=== PATIENT | female | born 1950 | race Caucasian/White ===

== ENCOUNTER 2016-09-14 07:57 | Inpatient (IN) | payer OTHER ==
[2016-09-14] MEDS ORDERED: ONDANSETRON 4 MG/2 ML VIAL IVPB ONE ×2 (08:40→08:44)
[2016-09-14] MEDS ORDERED: SODIUM CHLORIDE 1,000 ML IV STA (08:40)
--- NOTE | 2016-09-14 08:42 | PDOC ---
Attending Attestation - Resident Resident Name: Venkat Mccollum - ED Attending Attestation I have performed the following: I have examined & evaluated the patient, The case was reviewed & discussed with the resident, I agree w/resident's findings & plan, Exceptions are as noted - HPI HPI: 09/14/16 09:13 66y F no pmhx presents with complaint of abd pain x 3 days, initially crampy in nature, then radiating to RLQ and constant. No assoc fever/chills, no n/v until pt arrived to the ED where she vomited x 1. On exam pt has moderate tenderness to the RLQ, mild rebound tenderness. vitals noted for mild tachycardia suspect possible appendicitis will obtain blood work, ct, ua morphine for pain IVF for hydration 09/14/16 12:[address] noted for perforation and suspected diverticulitis pt written for flagyl and levaquin NPO for 2 days will give fluids/iv hydration surgery consulted anticipate admission pt currently hemodynamically stable I spent ~40 minutes of Critical Care time, excluding separately billable procedures, involving high complexity decision making to assess, manipulate and support vital system function(s) to treat single or multiple vital organ system failure and/or to prevent further life threatening deterioration of the patient' s condition. - Physicial Exam PE: 09/14/16 17:38 see above - Medical Decision Making 09/14/16 17:38 see above Heart Score/ECG Review - ECG Impressions Comment:: 09/14/16 10:21 Twelve-lead EKG was performed and reviewed by me. There is normal sinus rhythm with a rate of 106 The axis is normal. The intervals are normal. Nonspecific ST wave changes
[2016-09-14] MEDS ORDERED: ONDANSETRON 4 MG/2 ML VIAL ONE ×2 (08:47→14:29)
[2016-09-14] MEDS ORDERED: morphine CARPU-JECT 4 MG/1 ML DISP.SYRIN IVPUSH ONE (08:49)
[2016-09-14] MEDS ORDERED: morphine CARPU-JECT 4 MG/1 ML DISP.SYRIN ONE (09:07)
[2016-09-14 09:09] LABS: BASOPHIL 0.5 % (0-2.0); MCH 30.1 pg (25.7-33.7); MCHC 32.9 g/dl (32.0-36.0); MEAN CELL VOLUME 91.6 fl (80-96); MEAN PLT VOLUME 9.1 fl (7.5-11.1); PLATELET COUNT 362 K/MM3 (134-434); RDW 13.1 % (11.6-15.6)
--- NOTE | 2016-09-14 09:23 | PDOC ---
History of Present Illness - General Chief Complaint: Pain Stated Complaint: ABD PAIN Time Seen by Provider: 09/14/16 08:07 - History of Present Illness Initial Comments: 09/14/16 09:23 66 yo F with h/o HTN, and diverticulosis who presents with abdominal pain. Pt. reports that over the past 3 days she has been experiencing intermittent, crampy , diffuse abdominal pain with no radiation to back. Over the past 24 hours abdominal pain has migrated to RLQ and been chronic/unremitting, 10/10 severity. Pain is aggravated with movement and pressure. Attempted OTC analgesia w/ Aleve tablet. Denies postprandial pain. She denies N/V, but has had one episode of emesis in room on encounter. She denies fevers/chills, diarrhea, or constipation. No blood in stool. Has had decreased appetite and 1- 2 small BM per day since onset of symptoms. Complains of dysuria , but denies hematuria or flank pain. Denies chest pain, SOB, lightheadedness, syncope, vision disturbance. 09/14/16 13:02 Past History - Past Medical History Allergies/Adverse Reactions: Allergies Allergy/AdvReac Type Severity Reaction Status Date / Time No Known Allergies Allergy Verified 09/14/16 08:12 Home Medications: Ambulatory Orders Acetaminophen [Tylenol] 650 mg PO PRN PRN 09/14/16 Albuterol Sulfate Inhaler - [Ventolin Hfa Inhaler -] 1 - 2 inh PO Q4H PRN Aspirin [ASA -] 81 mg PO DAILY 09/14/16 Cholecalciferol (Vitamin D3) [Vitamin D3] 1,000 unit PO BID 09/14/16 Diltiazem Cd [Cardizem Cd -] 240 mg PO DAILY 09/14/16 Folic Acid 1 mg PO DAILY 09/14/16 Losartan Potassium 50 mg PO DAILY 09/14/16 Meclizine HCl 25 mg PO DAILY 09/14/16 Montelukast Sodium [Singulair] 10 mg PO DAILY 09/14/16 Pravastatin Sodium [Pravachol (Nf)] 20 mg PO HS 09/14/16 Cardiac Disorders: Yes HTN: Yes Hypercholesterolemia: Yes - Psycho/Social/Smoking Cessation Hx Suicidal Ideation: No Smoking History: Never smoked Information on smoking cessation initiated: No Review of Systems - Review of Systems Comments:: 09/14/16 09:35 GENERAL/CONSTITUTIONAL: No fever or chills. No weakness. HEAD, EYES, EARS, NOSE AND THROAT: No change in vision. No ear pain or discharge. No sore throat. CARDIOVASCULAR: No chest pain or shortness of breath RESPIRATORY: No cough, wheezing, or hemoptysis. GASTROINTESTINAL: + nausea and vomiting, and constipation. No diarrhea or constipation. GENITOURINARY: + dysuria. No frequency, or change in urination. MUSCULOSKELETAL: No joint or muscle swelling or pain. No neck or back pain. SKIN: No rash NEUROLOGIC: No headache, vertigo, loss of consciousness, or change in strength/ sensation. ENDOCRINE: No increased thirst. No abnormal weight change HEMATOLOGIC/LYMPHATIC: No anemia, easy bleeding, or history of blood clots. ALLERGIC/IMMUNOLOGIC: No hives or skin allergy. *Physical Exam - Vital Signs Last Vital Signs Temp Pulse Resp BP Pulse Ox 86 18 124/80 97 09/14/16 08:04 09/14/16 08:04 09/14/16 08:04 09/14/16 08:04 - Physical Exam Comments: 09/14/16 09:36 GENERAL: Awake, alert, and fully oriented, in no acute distress HEAD: No signs of trauma, normocephalic, atraumatic EYES: PERRLA, EOMI, sclera anicteric, conjunctiva clear ENT: Auricles normal inspection, hearing grossly normal, nares patent, oropharynx clear without exudates. Moist mucosa NECK: Normal ROM, supple, no lymphadenopathy, JVD, or masses LUNGS: No distress, speaks full sentences, clear to auscultation bilaterally HEART: Regular rate and rhythm, normal S1 and S2, no murmurs, rubs or gallops, peripheral pulses normal and equal bilaterally. ABDOMEN: TTP in RLQ. Mild TTP in RUQ. Hypoactive BS. Absent rigidity. Involuntary guarding of abdomen .No rebound tenderness. Absent HSP. + mcburney point tenderness. Neg Moncada sign. + Rovsing sign. Absent CVA tenderness. Absent pulsatile abomen. No masses EXTREMITIES: Normal inspection, Normal range of motion, no edema. No clubbing or cyanosis. SKIN: Warm, Dry, normal turgor, no rashes or lesions noted. 09/14/16 13:00 ED Treatment Course - LABORATORY CBC & Chemistry Diagram: 09/14/16 09:00 09/14/16 09:47 - ADDITIONAL ORDERS Additional order review: 09/14/16 09:00 RBC 4.44 MCV 91.6 MCHC 32.9 RDW 13.1 MPV 9.1 Neutrophils % 86.0 H Lymphocytes % 6.9 L Monocytes % 6.6 Eosinophils % 0.0 Basophils % 0.5 - RADIOLOGY Radiology Studies Ordered: Category Date Time Status ABDOMEN & PELVIS CT WITH CONTR [CT] Stat CT Scan 09/14/16 08:38 Ordered Radiograph Interpretation: 09/14/16 12:59 EXAM#: TYPE/EXAM: RESULT: [id number] CT/ABDOMEN PELVIS CT WITH CONTR Abdomen and pelvis CT (with intravenous and oral contrast) Clinical information: abdominal pain multiplanar imaging was performed following the intravenous administration of nonionic contrast. Oral contrast was not administered. A small pneumoperitoneum is seen. There is also identification of a small amount of free fluid within the pelvis bilaterally and within the perihepatic region laterally. There is prominent concentric wall thickening involving the middle third of the sigmoid colon in association with numerous diverticula. Pericolonic edema and fluid is also seen. No abscess is identified. Within this same region of the sigmoid colon is prominent fecal retention with resultant luminal dilatation. No bowel obstruction is noted. Multiple bilateral renal cortical cysts. The liver, spleen, pancreas, gallbladder and adrenal glands demonstrate no discrete abnormality. There is no aortic aneurysm. No gross small bowel pathology is seen. The appendix appears unremarkable. There is no obvious lymphadenopathy. Equivocal mild endometrial thickening is noted. Mild bilateral lower lung field discoid atelectasis. IMPRESSION: Pneumoperitoneum. Small amount of free fluid within the abdomen and pelvis. Extensive sigmoid diverticulosis is seen with associated wall thickening as well as pericolonic edema. There is also distention of the sigmoid colon lumen in the same region secondary to fecal retention. These findings may be on the basis of acute diverticulitis and/or erosion/perforation associated with fecal retention. No abscess is identified. There is possible mild endometrial thickening. When the patient's clinical condition permits correlate with sonography. Reported By: Issac Maloney MD 09/14/16 9259 - Medications Given in the ED: ED Medications Discontinued Medications Generic Name Dose Route Start Last Admin Trade Name Freq PRN Reason Stop Dose Admin Morphine Sulfate 4 mg 09/14/16 08:49 09/14/16 09:11 Morphine Injection - IVPUSH 09/14/16 08:50 4 mg ONCE ONE Administration Ondansetron HCl 8 mg 09/14/16 08:40 09/14/16 09:12 Zofran Injection IVPB 09/14/16 08:41 Not Given ONCE ONE Ondansetron HCl 4 mg 09/14/16 08:44 09/14/16 09:06 Zofran Injection IVPB 09/14/16 08:45 4 mg ONCE ONE Administration Medical Decision Making - Medical Decision Making 09/14/16 09:39 66 yo F with h/o HTN, and diverticulosis who presents with abdominal pain. RLQ severe, migrating, crampy abdominal pain of 24 hours duration following 2 days of diffuse crampy abdominal pain. Moderate to high suspicion of acute appendicitis guided by physical exam and history. Pt. endorses RLQ pain and TTP. Low suspicion for SBO, pt with mutliple BM and does not report N/V. Consider possible diverticulitis vs. UTI/pyelonephritis in setting of abdominal pain and dysuria. DDx. Appendicitis, Nephrolithiasis, constipation ED course: CBC, CMP, lipase UA CT ABDOMEN/PELVIS Morphine 4 mg Ondansetron 4 mg NS 1000 ml 09/14/16 09:47 Lipase-68 CBC- WBC: 19.0 09/14/16 11:11 CMP unremarkable 09/14/16 12:56 CT ABD/PELVISPneumoperitoneum. Small amount of free fluid within the abdomen and pelvis. Extensive sigmoid diverticulosis is seen with associated wall thickening as well as pericolonic edema. There is also distention of the sigmoid colon lumen in the same region secondary to fecal retention. These findings may be on the basis of acute diverticulitis and/or erosion/perforation associated with fecal retention Flagyl 500 mg IV Levaquin 750 mg IV Consulted General Surgery. Per telephone conversation prepare for OR Admit to hospitalist group. *DC/Admit/Observation/Transfer Diagnosis at time of Disposition: Perforation bowel Constipation Qualifiers: Constipation type: unspecified constipation type Qualified Code(s): K59.00 - Constipation, unspecified Diverticulitis Qualifiers: Diverticulitis site: unspecified part of intestinal tract Diverticulitis bleeding: without bleeding Diverticulitis complication: unspecified complication status Qualified Code(s): K57.92 - Diverticulitis of intestine, part unspecified, without perforation or abscess without bleeding - Discharge Dispostion Condition at time of disposition: Guarded Admit: Yes - Attestations Physician Attestion: 09/14/16 13:41 I, Dr. Venkat Mccollum, attest that this document has been prepared under my direction and personally reviewed by me in its entirety. I further attest, that it accurately reflects all work, treatment, procedures and medical decision -making performed by me.
[2016-09-14 10:29] LABS: ALBUMIN 3.2 g/dl (3.4-5.0); ANION GAP 10 (8-16); BILIRUBIN,TOTAL 0.9 mg/dL (0.2-1.0); CALCIUM 8.6 mg/dL (8.5-10.1); CO2 23 mmol/L (21-32); CREATININE 0.8 mg/dL (0.55-1.02); GLUCOSE,RANDOM 121 mg/dL (74-106); SGOT/AST 11 U/L (15-37); SGPT/ALT 18 U/L (12-78); TOT PROT 6.8 g/dl (6.4-8.2)
[2016-09-14 10:30] LABS: ALK PHOS 114 U/L (45-117)
[2016-09-14 11:25] LABS: URINE APPEARANCE CLEAR; URINE BILIRUBIN NEGATIVE (NEGATIVE); URINE BLOOD 1+ (NEGATIVE); URINE COLOR AMBER; URINE GLUCOSE (UA) NEGATIVE (NEGATIVE); URINE KETONE 1+ (NEGATIVE); URINE LEUK ESTERASE NEGATIVE (NEGATIVE); URINE NITRITE NEGATIVE (NEGATIVE); URINE UROBILINOGEN 4.0 E.U/dl mg/dL (0.2-1.0)
[2016-09-14 11:26] LABS: URINE PROTEIN 2+ (NEGATIVE)
[2016-09-14 11:27] LABS: URINE MUCUS MANY; URINE RBC 6 /hpf (0-3); URINE WBC 4 /hpf (3-5)
[2016-09-14] MEDS ORDERED: METRONIDAZOLE 500 MG PREMIXED 100 ML IVPB ONE ×2 (12:20→12:26)
[2016-09-14] MEDS ORDERED: LEVOFLOXACIN 750 MG IVPB 150 ML IVPB ONE ×2 (12:22→12:26)
[2016-09-14] MEDS ORDERED: HYDROmorphone HCL CARPU-JECT 2 MG/1 ML DISP.SYRIN IVPUSH ONE (12:28)
[2016-09-14] MEDS ORDERED: HYDROmorphone HCL CARPU-JECT 1 MG/1 ML DISP.SYRIN ONE (12:29)
--- NOTE | 2016-09-14 12:49 | PN ---
Progress Note (short form) - Note Progress Note: surgery pt seen and examined. full consult dictated. 66f with 3 days of constipation and abd pain, found to have leukocytosis and ct showing inflamed sigmoid colon and multiple droplets of free air. on exam pt is obese with significant lower abd tenderness and mild upper abd tenderness. Pt offered exploratory surgery with colostomy and agrees. I am making arrangements for emergent surgery. Will proceed as soon as OR team available.
[2016-09-14] MEDS ORDERED: PIPERACILLIN/TAZOB 3.375 GM/50 ML PRE-DOCKED IVPB STA (12:52)
[2016-09-14] MEDS ORDERED: ROCURONIUM BROMIDE 50 MG/5 ML VIAL ONE (14:03)
[2016-09-14] MEDS ORDERED: MIDAZOLAM HCL 2 MG/2 ML SINGLE DOSE VIAL ONE (14:03)
[2016-09-14] MEDS ORDERED: PROPOFOL 20 ML ONE (14:03)
[2016-09-14] MEDS ORDERED: SUCCINYLCHOLINE CHLORIDE 200 MG/10 ML VIAL ONE (14:03)
--- NOTE | 2016-09-14 14:03 | HP ---
Admitting History and Physical - Primary Care Physician PCP: Josie Cosme - Admission Chief Complaint: abdominal pain History of Present Illness: 66F with PMH HTN and vertigo woke up whtis morning with abdominal pain. States she is constipated at baseline and has a history of diverticulosis. She describes the pain as crampy comes and goes and radiates all over the abdomen although the pain intially started on the right side of the abdomen. Denies nausea vomiting fevers chills chest pain or shortness of breath. No change i exercise tolerance. Denies diarrhea or urinary symptoms. States she never had a colonoscopy History Source: Patient, Medical Record Limitations to Obtaining History: Clinical Condition - Past Medical History Additional Past Medical History: HTN HLD vertigo asthma obesity - Past Surgical History Additional Past Surgical History: C section - Smoking History Smoking history: Never smoked Home Medications - Allergies Allergies/Adverse Reactions: Allergies Allergy/AdvReac Type Severity Reaction Status Date / Time No Known Allergies Allergy Verified 09/14/16 08:12 - Home Medications Home Medications: Ambulatory Orders Acetaminophen [Tylenol] 650 mg PO PRN PRN 09/14/16 Albuterol Sulfate Inhaler - [Ventolin Hfa Inhaler -] 1 - 2 inh PO Q4H PRN Aspirin [ASA -] 81 mg PO DAILY 09/14/16 Cholecalciferol (Vitamin D3) [Vitamin D3] 1,000 unit PO BID 09/14/16 Diltiazem Cd [Cardizem Cd -] 240 mg PO DAILY 09/14/16 Folic Acid 1 mg PO DAILY 09/14/16 Losartan Potassium 50 mg PO DAILY 09/14/16 Meclizine HCl 25 mg PO DAILY 09/14/16 Montelukast Sodium [Singulair] 10 mg PO DAILY 09/14/16 Pravastatin Sodium [Pravachol (Nf)] 20 mg PO HS 09/14/16 Family Disease History - Family Disease History Other Family History: states "heart problems" run in her family Review of Systems - Review of Systems Constitutional: reports: Malaise, Weakness Eyes: reports: No Symptoms HENT: reports: No Symptoms Neck: reports: No Symptoms Cardiovascular: reports: No Symptoms Respiratory: reports: No Symptoms Gastrointestinal: reports: Abdominal Pain, Bloating, Constipation Genitourinary: reports: No Symptoms Breasts: reports: No Symptoms Reported Musculoskeletal: reports: No Symptoms Integumentary: reports: No Symptoms Neurological: reports: No Symptoms Hematology/Lymphatic: reports: No Symptoms Physical Examination Vital Signs: Vital Signs Temperature Pulse Rate 111 H 09/14/16 13:30 Respiratory Rate 20 09/14/16 12:58 Blood Pressure 135/79 09/14/16 12:58 O2 Sat by Pulse Oximetry (%) 95 09/14/16 13:30 Constitutional: Yes: No Distress, Calm, Obese Eyes: Yes: Conjunctiva Clear HENT: Yes: Atraumatic, Normocephalic, Other (dry mucous membranes) Neck: Yes: Supple, Trachea Midline Cardiovascular: Yes: Regular Rate and Rhythm, S1, S2 Respiratory: Yes: Other (Crackles R>L bibasilar) Gastrointestinal: Yes: Abdomen, Obese, Hypoactive Bowel Sounds, Tenderness ( diffuse severe tenderness), Other (there is rigidity and guarding) Extremities: Yes: WNL Edema: No Integumentary: Yes: WNL Neurological: Yes: WNL, Alert, Oriented ...Motor Strength: WNL Labs: CBC, BMP 09/14/16 09:00 09/14/16 09:47 Imaging - Results Chest X-ray: Report Reviewed, Image Reviewed Cat Scan: Report Reviewed, Image Reviewed Assessment/Plan 66F with [id number] medical problems presents with abdominal pain found to have pneumoperitoneum going to the OR for emergent Ex-lap with viviana's procedure Problem list: Sepsis pneumoperitoneum perforated viscus perforated diverticulitis vs perforated cancer vs stercoral ulcer chronic Constipation HTN HLD Asthma Vertigo Anemia Obesity likely obesity hypoventilation syndrome Plan: to go to OR STAT type and screen 2 units PRBCs on hold for OR Admit to ICU I/O Castellanos ABx Cardiac monitoring NPO except meds restart BP meds restart statin hold aspirn DVT/GI PPx PT consult f/ pathology outpatient sleep study nebs Visit type - Emergency Visit Emergency Visit: Yes ED Registration Date: 09/14/16 Care time: The patient presented to the Emergency Department on the above date and was hospitalized for further evaluation of their emergent condition. - New Patient This patient is new to me today: Yes Date on this admission: 09/14/16 - Critical Care Critical Care patient: Yes Total Critical Care Time (in minutes): 45 Critical Care Statement: The care of this patient involved high complexity decision making to prevent further life threatening deterioration of the patient 's condition and/or to evalute & treat vital organ system(s) failure or risk of failure.
[2016-09-14] MEDS ORDERED: ONDANSETRON 4 MG/2 ML VIAL IVPB PRN (14:07)
[2016-09-14] MEDS ORDERED: ACETAMINOPHEN 325 MG TABLET (FP) PO PRN (14:07)
[2016-09-14] MEDS ORDERED: IBUPROFEN 800 MG/8 ML IJ IVPB PRN (14:12)
--- NOTE | 2016-09-14 14:14 | OP ---
Operative Note - Note: Operative Date: 09/14/16 Pre-Operative Diagnosis: perforated viscous Operation: laparotomy, sigmoid colectomy, colostomy Findings: perforated sigmoid colon, suspect diverticulitis Post-Operative Diagnosis: Same as Pre-op Surgeon: Pablo Galarza Anesthesiologist/BRASS RECLAIMER: Joe Earl Estimated Blood Loss (mls): 200 Drains & Tubes with Location: maxi pelvis
[2016-09-14] MEDS ORDERED: SODIUM CHLORIDE 1,000 ML IV SCH (14:15)
--- NOTE | 2016-09-14 14:23 | HP ---
<Jil Carballo - Last Filed: 09/14/16 23:22> CHIEF COMPLAINT: Worsening abdominal pain HISTORY OF PRESENT ILLNESS: Patient is a 66yo F with a history of diverticulosis and chronic constipation presented tot he ER with worsening abdominal pain. As per the ED note, for the past 3 days she has been experiencing intermittent, crampy, diffuse nonradiating abdominal pain. The patient states that today she woke up with 10/ 10 chronic and unremitting abdominal pain which is now localized more in the RLQ. The pain is worsened with movement. She denies fevers, chills, CP, SOB. She denies current diarrhea, nausea, or vomitting, diarrhea but had one episode of emesis in the ER room. ER course was notable for: (1) CXR, CT Scan (2) EKG (3) Surgery Consult Recent Travel: Denies PAST MEDICAL HISTORY: HTN, HLD, Asthma, Vertigo PAST SURGICAL HISTORY: Prior Transverse C section with vertical incision, prior R eye surgery Social History: Smoking: Denies Alcohol: Denies Drugs: Denies Family History: Allergies No Known Allergies Allergy (Verified 09/14/16 08:12) HOME MEDICATIONS: Home Medications Medication Instructions Recorded Acetaminophen [Tylenol] 650 mg PO PRN PRN 09/14/16 Albuterol Sulfate Inhaler - 1 - 2 inh PO Q4H PRN 09/14/16 [Ventolin Hfa Inhaler -] Aspirin [ASA -] 81 mg PO DAILY 09/14/16 Cholecalciferol (Vitamin D3) 1,000 unit PO BID 09/14/16 [Vitamin D3] Diltiazem Cd [Cardizem Cd -] 240 mg PO DAILY 09/14/16 Folic Acid 1 mg PO DAILY 09/14/16 Losartan Potassium 50 mg PO DAILY 09/14/16 Meclizine HCl 25 mg PO DAILY 09/14/16 Montelukast Sodium [Singulair] 10 mg PO DAILY 09/14/16 Pravastatin Sodium [Pravachol (Nf)] 20 mg PO HS 09/14/16 REVIEW OF SYSTEMS CONSTITUTIONAL: Absent: fever, chills, diaphoresis, generalized weakness, malaise, weight change Present: loss of appetite HEENT: Absent: rhinorrhea, nasal congestion, throat pain, throat swelling, difficulty swallowing, mouth swelling, ear pain, eye pain, visual changes CARDIOVASCULAR: Absent: chest pain, syncope, palpitations, irregular heart rate, lightheadedness , peripheral edema RESPIRATORY: Absent: cough, shortness of breath, dyspnea with exertion, orthopnea, wheezing, stridor, hemoptysis GASTROINTESTINAL: Absent: nausea, vomiting, diarrhea, melena, hematochezia Present: abdominal pain, abdominal distension, vomitting, constipation GENITOURINARY: Absent: hematuria, flank pain, genital pain MUSCULOSKELETAL: Absent: myalgia, arthralgia, joint swelling, back pain, neck pain SKIN: Absent: rash, itching, pallor HEMATOLOGIC/IMMUNOLOGIC: Absent: easy bleeding, easy bruising, lymphadenopathy, frequent infections ENDOCRINE: Absent: unexplained weight gain, unexplained weight loss, heat intolerance, cold intolerance NEUROLOGIC: Absent: headache, focal weakness or paresthesias, dizziness, unsteady gait, seizure, mental status changes, bladder or bowel incontinence PSYCHIATRIC: Absent: anxiety, depression, suicidal or homicidal ideation, hallucinations. PHYSICAL EXAMINATION Vital Signs - 24 hr 09/14/16 09/14/16 09/14/16 08:04 12:58 13:30 Pulse Rate 86 Pulse Rate [ 110 H 111 H Apical] Respiratory 18 20 Rate Blood Pressure 124/80 Blood Pressure 135/79 [Right Arm] O2 Sat by Pulse 97 81 L 95 Oximetry (%) GENERAL: Awake, alert, and fully oriented, lying in bed still with minimal movements, mild distress HEENT: PERRLA, EOMi, dry mucous membranes LUNGS: Distant breath sounds, mild crackles, no accessory muscle use. HEART: Regular rate and rhythm, normal S1 and S2 without murmur, rub or gallop. ABDOMEN: Protuberant abdomen, hypoactive bowel sounds, +guarding, +rebound. exquisitely TTP in LLQ and RLQ MUSCULOSKELETAL: Normal range of motion at all joints. No bony deformities or tenderness. No CVA tenderness. UPPER EXTREMITIES: 2+ pulses, warm, well-perfused. No cyanosis. No clubbing. No peripheral edema. LOWER EXTREMITIES: 2+ pulses, warm, well-perfused. No calf tenderness. No peripheral edema. NEUROLOGICAL: Cranial nerves II-XII intact. Normal speech. Normal gait. PSYCHIATRIC: Cooperative. Good eye contact. Appropriate mood and affect. SKIN: Warm, dry, normal turgor, no rashes or lesions noted, normal capillary refill. Laboratory Results - last 24 hr 09/14/16 09/14/16 09/14/16 09:00 09:00 09:00 WBC 19.0 H RBC 4.44 Hgb 13.4 Hct 40.7 MCV 91.6 MCH 30.1 MCHC 32.9 RDW 13.1 Plt Count 362 MPV 9.1 Neutrophils % 86.0 H Lymphocytes % 6.9 L Monocytes % 6.6 Eosinophils % 0.0 Basophils % 0.5 Sodium Cancelled Potassium Cancelled Chloride Cancelled Carbon Dioxide Cancelled Anion Gap Cancelled BUN Cancelled Creatinine Cancelled Creat Clearance w eGFR Cancelled Random Glucose Cancelled Lactic Acid Calcium Cancelled Total Bilirubin Cancelled AST Cancelled ALT Cancelled Alkaline Phosphatase Cancelled Total Protein Cancelled Albumin Cancelled Lipase 68 L Urine Color Urine Appearance Urine pH Ur Specific [place] Urine Protein Urine Glucose (UA) Urine Ketones Urine Blood Urine Nitrite Urine Bilirubin Urine Urobilinogen Ur Leukocyte Esterase Urine RBC Urine WBC Ur Epithelial Cells Urine Mucus 09/14/16 09/14/16 09/14/16 09:47 11:18 13:05 WBC RBC Hgb Hct MCV MCH MCHC RDW Plt Count MPV Neutrophils % Lymphocytes % Monocytes % Eosinophils % Basophils % Sodium 141 Potassium 3.6 Chloride 108 H Carbon Dioxide 23 Anion Gap 10 BUN 12 Creatinine 0.8 Creat Clearance w eGFR > 60 Random Glucose 121 H Lactic Acid 0.7 Calcium 8.6 Total Bilirubin 0.9 AST 11 L ALT 18 Alkaline Phosphatase 114 Total Protein 6.8 Albumin 3.2 L Lipase 63 L Urine Color [place] Urine Appearance Clear Urine pH 5.0 Ur Specific [place] >= 1.030 H Urine Protein 2+ H Urine Glucose (UA) Negative Urine Ketones 1+ H Urine Blood 1+ H Urine Nitrite Negative Urine Bilirubin Negative Urine Urobilinogen 4.0 e.u/dl H Ur Leukocyte Esterase Negative Urine RBC 6 Urine WBC 4 Ur Epithelial Cells Rare Urine Mucus Many IMAGING: CT/ABDOMEN PELVIS WITH IV CONTR - A small pneumoperitoneum is seen. There is also identification of a small amount of free fluid within the pelvis bilaterally and within the perihepatic region laterally. There is prominent concentric wall thickening involving the middle third of the sigmoid colon in association with numerous diverticula. Pericolonic edema and fluid is also seen. No abscess is identified. Within this same region of the sigmoid colon is prominent fecal retention with resultant luminal dilatation. No bowel obstruction is noted. Multiple bilateral renal cortical cysts. The liver, spleen , pancreas, gallbladder and adrenal glands demonstrate no discrete abnormality. There is no aortic aneurysm. No gross small bowel pathology is seen. The appendix appears unremarkable. There is no obvious lymphadenopathy. Equivocal mild endometrial thickening is noted. Mild bilateral lower lung field discoid atelectasis. IMPRESSION: Pneumoperitoneum. Small amount of free fluid within the abdomen and pelvis. Extensive sigmoid diverticulosis is seen with associated wall thickening as well as pericolonic edema. There is also distention of the sigmoid colon lumen in the same region secondary to fecal retention. These findings may be on the basis of acute diverticulitis and/or erosion/perforation associated with fecal retention. No abscess is identified. There is possible mild endometrial thickening. When the patient's clinical condition permits correlate with sonography. Reported By: Issac Maloney MD 09/14/16 1218 ASSESSMENT/PLAN: Patient is a 66yo F with a history of HTN, HLD, diverticulosis and chronic constipation presented to the ER with worsening abdominal pain. She was found to have # Sepsis - secondary due peritonitis w/ pneumoperitoneum - Pt has high WBC, tachycardia, and source of infection likely from perforated diverticulitis - Other ddx include CRC (pt never had colonoscopy) vs stercoral ulcer (pt has hx of constipation) - Pt sent to OR immediately for exploratory laparotomy and Carrera's procedure by Dr. Galarza - Strict I & O with seaman - NPO with medications as per surgery - Stat Type & Screen & Coags with 2 units of PRBC on hold for OR - UA, Ucx, Bcx sepsis workup - Pt given Levaquin + Zosyn + Flagyl in ED; Will start postop Zosyn 3.375 IV Q6 - Pain control with Ibuprofen 800mg IV Q6 - Nausea control post-op, will order Zofran PRN - Will place ID consult - F/u labs in AM - F/u pathology from OR # Hyperglycemia - Pt glucose 121, possible reactive hyperglycemia secondary to sepsis/infection vs DM new onset - BGM Q6, continue to trend, no SSI needed - HbA1C f/u # Hx of HTN - Pts BP is 135/79 currently - Will continue pts Diltiazem 240mg PO QD + Losartan 50mg PO QD # Hx of HLD - Will continue pts Simvastatin 10mg PO QHS - Held ASA prior to OR, will restart postop ASA 81mg PO QD # Hx of Vertigo - Currently not active, continue Meclizine 25mg PO QD # Hx of Asthma - Pt on home Singulair 10mg PO QD, will restart post-op - Will order Albuterol rescue PRN + Nebulizers PRN # Hx of Macrocytic Anemia - Continue pts home Folic Acid 1mg PO QD - Currently MCV is 91 # FEN - Fluids: IVF NS 100cc/hr - Electrolytes: No abnormalities, continue to monitor - Nutrition: NPO after surgery #Prophylaxis - DVT: Lovenox QD - GI: Protonix - Deconditioning: PT ordered # Disposition - Admit to ICU post procedure, with continuous cardiac monitoring Discussed with the attending Dr. Gauthier and second year Resident Dr. Avni Jose Visit type - Emergency Visit Emergency Visit: Yes ED Registration Date: 09/14/16 Care time: The patient presented to the Emergency Department on the above date and was hospitalized for further evaluation of their emergent condition. - New Patient This patient is new to me today: Yes Date on this admission: 09/14/16 - Critical Care Critical Care patient: Yes Total Critical Care Time (in minutes): 45 Critical Care Statement: The care of this patient involved high complexity decision making to prevent further life threatening deterioration of the patient 's condition and/or to evalute & treat vital organ system(s) failure or risk of failure. <Tammy Rodriguez - Last Filed: 09/16/16 08:09> addendum to the H/P: ASSESSMENT/PLAN: Patient presented with acute abdomen to the emergency room. Patient was taken to OR by the surgeon due to acute pneumoperiteneum with acute peritonitis. Given multiple antibiotics prior to surgery. Patient of .
[2016-09-14] MEDS ORDERED: PHENYLEPHRINE HCL 10 MG/1 ML SINGLE DOSE VIAL ONE (14:29)
[2016-09-14] MEDS ORDERED: DEXAMETHASONE SOD PHOSPHATE 4 MG/1 ML VIAL ONE (14:29)
[2016-09-14] MEDS ORDERED: HYDROmorphone HCL/PF 1 MG/ML VIAL (FOR PYXIS CHARGING ONLY) ONE (14:35)
[2016-09-14] MEDS ORDERED: ALBUTEROL SO4 6.7 GM HFA INHALER IH PRN (14:45)
[2016-09-14] MEDS ORDERED: GLYCOPYRROLATE 0.2 MG/1 ML VIAL ONE (15:21)
[2016-09-14] MEDS ORDERED: NEOSTIGMINE METHYLSULFATE 0.5 MG/ML - 10 ML MDV ONE (15:21)
[2016-09-14] MEDS ORDERED: KETOROLAC TROMETHAMINE 30 MG/1 ML VIAL ONE (15:41)
[2016-09-14] MEDS ORDERED: HYDROmorphone HCL CARPU-JECT 1 MG/1 ML DISP.SYRIN IVPUSH PRN (16:42)
[2016-09-14] MEDS ORDERED: LACTATED RINGERS SOLUTION 1,000 ML IV SCH (16:45)
--- NOTE | 2016-09-14 19:13 | PN ---
Teaching Attending Note Name of Resident: Jil Carballo ATTENDING PHYSICIAN STATEMENT I saw and evaluated the patient. I reviewed the resident's note and discussed the case with the resident. I agree with the resident's findings and plan as documented. SUBJECTIVE: Patient is a 66yo F presented to ED. with severe abdominal pain that started 3 days ago but got worse this morning that should could not resist the pain that she came to ED. for further evaluation. seen the patient post up; Daughters at bed side. As per daughters patient had episodes of diarrhea and constipations for multiple times but the daughters are not aware that she went to a doctor for further investigation. Patient is not aware having diverticulitis or diverticulosis. OBJECTIVE: Vital Signs Temperature 97.8 F 09/14/16 16:34 Pulse Rate 95 H 09/14/16 19:00 Respiratory Rate 19 09/14/16 19:00 Blood Pressure 100/70 09/14/16 19:00 O2 Sat by Pulse Oximetry (%) 93 L 09/14/16 19:00 CBCD WBC 19.0 K/mm3 (4.0-10.0) H 09/14/16 09:00 RBC 4.44 M/mm3 (3.60-5.2) 09/14/16 09:00 Hgb 13.4 GM/dL (10.7-15.3) 09/14/16 09:00 Hct 40.7 % (32.4-45.2) 09/14/16 09:00 MCV 91.6 fl (80-96) 09/14/16 09:00 MCHC 32.9 g/dl (32.0-36.0) 09/14/16 09:00 RDW 13.1 % (11.6-15.6) 09/14/16 09:00 Plt Count 362 K/MM3 (134-434) 09/14/16 09:00 MPV 9.1 fl (7.5-11.1) 09/14/16 09:00 CMP Sodium 141 mmol/L (136-145) 09/14/16 09:47 Potassium 3.6 mmol/L (3.5-5.1) 09/14/16 09:47 Chloride 108 mmol/L (98-107) H 09/14/16 09:47 Carbon Dioxide 23 mmol/L (21-32) 09/14/16 09:47 Anion Gap 10 (8-16) 09/14/16 09:47 BUN 12 mg/dL (7-18) 09/14/16 09:47 Creatinine 0.8 mg/dL (0.55-1.02) 09/14/16 09:47 Creat Clearance w eGFR > 60 (>60) 09/14/16 09:47 Random Glucose 121 mg/dL (74-106) H 09/14/16 09:47 Calcium 8.6 mg/dL (8.5-10.1) 09/14/16 09:47 Total Bilirubin 0.9 mg/dL (0.2-1.0) 09/14/16 09:47 AST 11 U/L (15-37) L 09/14/16 09:47 ALT 18 U/L (12-78) 09/14/16 09:47 Alkaline Phosphatase 114 U/L (45-117) 09/14/16 09:47 Total Protein 6.8 g/dl (6.4-8.2) 09/14/16 09:47 Albumin 3.2 g/dl (3.4-5.0) L 09/14/16 09:47 Current Medications Generic Name Dose Route Start Last Admin Trade Name Freq PRN Reason Stop Dose Admin Acetaminophen 650 mg 09/14/16 14:07 Tylenol - PO Q4H PRN FEVER OR PAIN Albuterol Sulfate 1 puff 09/14/16 14:45 Ventolin Hfa Inhaler - IH Q4H PRN ASTHMA Atorvastatin Calcium 10 mg 09/15/16 22:00 Lipitor - PO HS CHRIS Chlorhexidine Gluconate 1 applic 09/14/16 22:00 Hibiclens For Decolonization - TP HS CHRIS Diltiazem HCl 240 mg 09/15/16 10:00 Cardizem Cd - PO DAILY CHRIS Enoxaparin Sodium 40 mg 09/15/16 10:00 Lovenox - SQ DAILY CHRIS Folic Acid 1 mg 09/15/16 10:00 Folic Acid - PO DAILY CHRIS Hydromorphone HCl 0.5 mg 09/14/16 16:42 Dilaudid Injection - IVPUSH 09/17/16 16:43 [id number] PRN PAIN Hydromorphone HCl 0 mg 09/14/16 17:45 Dilaudid Intensive Care Medicine Specialist - PHOTOGRAPHY INSTRUCTOR 09/21/16 17:43 PHOTOGRAPHY INSTRUCTOR CHRIS Protocol Pantoprazole Sodium 40 mg/ 100 mls @ 200 mls/hr 09/15/16 10:00 Sodium Chloride IVPB DAILY CHRIS Sodium Chloride 1,000 mls @ 100 mls/hr 09/14/16 14:15 Normal Saline - IV ASDIR CHRIS Piperacillin Sod/Tazobactam 50 mls @ 100 mls/hr 09/14/16 15:00 Sod 3.375 gm/ Dextrose IVPB Q6H-IV CHRIS Protocol Ibuprofen 800 mg 09/14/16 14:12 Caldolor Injection - IVPB Q6H PRN PAIN Losartan Potassium 50 mg 09/15/16 10:00 Cozaar - PO DAILY CHRIS Montelukast Sodium 10 mg 09/15/16 22:00 Singulair - PO HS [facility] Mupirocin 1 applic 09/14/16 22:00 Bactroban Ointment (For Decolonization) - NS 09/19/16 21:59 BID [facility] Ondansetron HCl 4 mg 09/14/16 14:07 Zofran Injection IVPB Q6H PRN NAUSEA Home Medications Medication Instructions Recorded Acetaminophen [Tylenol] 650 mg PO PRN PRN 09/14/16 Albuterol Sulfate Inhaler - 1 - 2 inh PO Q4H PRN 09/14/16 [Ventolin Hfa Inhaler -] Aspirin [ASA -] 81 mg PO DAILY 09/14/16 Cholecalciferol (Vitamin D3) 1,000 unit PO BID 09/14/16 [Vitamin D3] Diltiazem Cd [Cardizem Cd -] 240 mg PO DAILY 09/14/16 Folic Acid 1 mg PO DAILY 09/14/16 Losartan Potassium 50 mg PO DAILY 09/14/16 Meclizine HCl 25 mg PO DAILY 09/14/16 Montelukast Sodium [Singulair] 10 mg PO DAILY 09/14/16 Pravastatin Sodium [Pravachol (Nf)] 20 mg PO HS 09/14/16 CT/ABDOMEN PELVIS WITH IV CONTR - A small pneumoperitoneum is seen. There is also identification of a small amount of free fluid within the pelvis bilaterally and within the perihepatic region laterally. There is prominent concentric wall thickening involving the middle third of the sigmoid colon in association with numerous diverticula. Pericolonic edema and fluid is also seen. No abscess is identified. Within this same region of the sigmoid colon is prominent fecal retention with resultant luminal dilatation. No bowel obstruction is noted. Multiple bilateral renal cortical cysts. The liver, spleen , pancreas, gallbladder and adrenal glands demonstrate no discrete abnormality. There is no aortic aneurysm. No gross small bowel pathology is seen. The appendix appears unremarkable. There is no obvious lymphadenopathy. Equivocal mild endometrial thickening is noted. Mild bilateral lower lung field discoid atelectasis. IMPRESSION: Pneumoperitoneum. Small amount of free fluid within the abdomen and pelvis. Extensive sigmoid diverticulosis is seen with associated wall thickening as well as pericolonic edema. There is also distention of the sigmoid colon lumen in the same region secondary to fecal retention. These findings may be on the basis of acute diverticulitis and/or erosion/perforation associated with fecal retention. No abscess is identified. There is possible mild endometrial thickening. When the patient's clinical condition permits correlate with sonography. Reported By: Issac Maloney MD 09/14/16 4634 ASSESSMENT AND PLAN: Patient is a 66yo F presented to ED. with severe abdominal pain that started 3 days ago but got worse this morning that she should could not resist the pain , came to ED. for further evaluation. Patient went to OR for emergent surgery by . Seen the patient post up; Daughters at bed side. As per daughters patient had episodes of diarrhea and constipations for multiple times but the daughters are not aware that she went to a doctor for further investigation. Patient is not aware having diverticulitis or diverticulosis. #POD#1 perforated viscous s/p laparotomy, sigmoid colectomy, colostomy ; Findings: as per :perforated sigmoid colon, suspected diverticulitis # Sepsis - secondary due peritonitis w/ pneumoperitoneum on IV ZOSYN ID consult appreciated #Hx of severe constipation. diet change, supplements colace prior to discharge. # DVT Px : Lovenox QD - GI: Protonix s/p surgery Tx to ICU
[2016-09-14] MEDS: HYDROmorphone *PCA* 10MG/50ML DISP.SYRIN PCA SCH (20:00)
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
[2016-09-14 20:49] VITALS: BMI 33.7
[2016-09-14] MEDS: MUPIROCIN 2% TOPICAL OINTMENT FOR DECOLONIZATION NS SCH (22:40)
[2016-09-14] MEDS: CHLORHEXIDINE GLUCONATE 4% CLEANSER FOR DECOLONIZATION TP SCH (22:41)
[2016-09-15] MEDS ORDERED: SODIUM CHLORIDE 250 ML IV STA ×2 (00:01→00:29)
[2016-09-15] MEDS ORDERED: PIPERACILLIN/TAZOB 3.375 GM 50 ML IVPB ONE ×2 (02:30→03:00)
[2016-09-15] MEDS ORDERED: LACTATED RINGERS SOLUTION 1,000 ML IV ONE (06:00)
[2016-09-15 06:17] LABS: MCH 30.2 pg (25.7-33.7); MCHC 32.8 g/dl (32.0-36.0); MEAN PLT VOLUME 8.9 fl (7.5-11.1); PLATELET COUNT 273 K/MM3 (134-434); RDW 13.6 % (11.6-15.6); WHITE BLOOD COUNT 13.8 K/mm3 (4.0-10.0)
[2016-09-15 06:52] LABS: ANION GAP 7 (8-16); CALCIUM 7.7 mg/dL (8.5-10.1); CO2 26 mmol/L (21-32); CREATININE 0.7 mg/dL (0.55-1.02); GLUCOSE,RANDOM 137 mg/dL (74-106); MAGNESIUM 1.9 mg/dL (1.8-2.4); PHOSPHOROUS 3.2 mg/dL (2.5-4.9)
--- NOTE | 2016-09-15 08:23 | PN ---
Progress Note (short form) - Note Progress Note: Post op day#1.S/P Sigmoid colon resection with colostomy,mucous fistula and drainage of abscess under GA uneventful.Patient stable.P 75,BP 103/72 and Spo2 95% on O2 4L NC.Patient on Dilaudid NIGHT SHIFT MANAGER and c/o pain score of 4-5/10.Will continue NIGHT SHIFT MANAGER today and will f/u.
--- NOTE | 2016-09-15 08:58 | PN ---
Progress Note, Physician Chief Complaint: ID Day 1 post op Alert Never febrile - Current Medication List Current Medications: Active Medications Acetaminophen (Tylenol -) 650 mg PO Q4H PRN PRN Reason: FEVER OR PAIN Albuterol Sulfate (Ventolin Hfa Inhaler -) 1 puff IH Q4H PRN PRN Reason: ASTHMA Atorvastatin Calcium (Lipitor -) 10 mg PO HS [facility] Chlorhexidine Gluconate (Hibiclens For Decolonization -) 1 applic TP HS [facility] Last Admin: 09/14/16 22:41 Dose: 1 applic Enoxaparin Sodium (Lovenox -) 40 mg SQ DAILY [facility] Folic Acid (Folic Acid -) 1 mg PO DAILY [facility] Hydromorphone HCl (Dilaudid Injection -) 0.5 mg IVPUSH [id number] PRN PRN Reason: PAIN Stop: 09/17/16 16:43 Hydromorphone HCl (Dilaudid Technology Consultant -) 10 mg [facility]IS PRN Reason: Protocol Stop: 09/21/16 17:43 Last Admin: 09/14/16 20:00 Dose: Not Given Pantoprazole Sodium 40 mg/ (Sodium Chloride) 100 mls @ 200 mls/hr IVPB DAILY [facility] [place] Sodium Chloride (Normal Saline -) 1,000 mls @ 100 mls/hr IV ASDIR [facility] Last Admin: 09/14/16 20:00 Dose: 100 mls/hr Piperacillin Sod/Tazobactam (Sod 3.375 gm/ Dextrose) 50 mls @ 100 mls/hr IVPB Q6H-IV [facility]IS PRN Reason: Protocol Ibuprofen (Caldolor Injection -) 800 mg IVPB Q6H PRN PRN Reason: PAIN Montelukast Sodium (Singulair -) 10 mg PO [facility] Mupirocin (Bactroban Ointment (For Decolonization) -) 1 applic NS BID [facility]IS Stop: 09/19/16 21:59 Last Admin: 09/14/16 22:40 Dose: 1 applic Ondansetron HCl (Zofran Injection) 4 mg IVPB Q6H PRN PRN Reason: NAUSEA - Objective Vital Signs: Vital Signs Temperature 97 F L 09/15/16 05:00 Pulse Rate 90 09/15/16 06:00 Respiratory Rate 14 09/15/16 06:00 Blood Pressure 107/65 09/15/16 06:00 O2 Sat by Pulse Oximetry (%) 94 L 09/14/16 21:00 Neck: Yes: WNL, Supple Cardiovascular: Yes: S1, S2 Respiratory: Yes: WNL, Regular, CTA Bilaterally Gastrointestinal: Yes: Soft, Other (Post op colostomy) Labs: CBC, BMP 09/15/16 05:50 09/15/16 05:50 Problem List - Problems (1) Diverticulitis Code(s): K57.92 - DVTRCLI OF INTEST, PART UNSP, W/O PERF OR ABSCESS W/O BLEED Qualifiers: Diverticulitis site: unspecified part of intestinal tract Diverticulitis bleeding: without bleeding Diverticulitis complication: unspecified complication status Qualified Code(s): K57.92 - Diverticulitis of intestine, part unspecified, without perforation or abscess without bleeding (2) Perforation bowel Code(s): K63.1 - PERFORATION OF INTESTINE (NONTRAUMATIC) Assessment/Plan Microbiology Laboratory Tests 09/14/16 09/14/16 09/14/16 09:00 11:18 13:05 WBC 19.0 H Hgb 13.4 Hct 40.7 Plt Count 362 BUN Creatinine Lactic Acid 0.7 Urine RBC 6 Urine WBC 4 09/15/16 09/15/16 05:50 05:50 WBC 13.8 H Hgb Hct Plt Count BUN 14 Creatinine 0.7 Lactic Acid Urine RBC Urine WBC Assessment Post op colostomy Exploratory Lab day 1 Plan Treat for peritonitis Ceftriaxone and metrondiazole This note is a supplement to teaching service consultation Examined with resident Colleen ORTA
--- NOTE | 2016-09-15 09:15 | EKG ---
Test Reason : Blood Pressure : / mmHG Vent. Rate : 106 BPM Atrial Rate : 106 BPM P-R Int : 130 ms QRS Dur : 088 ms QT Int : 332 ms P-R-T Axes : 052 038 032 degrees QTc Int : 441 ms SINUS TACHYCARDIA NONSPECIFIC ST AND T WAVE ABNORMALITY ABNORMAL ECG NO PREVIOUS ECGS AVAILABLE Confirmed by SHY GALLOWAY MD ([id number]) on 09/15/2016 9:14:46 AM Referred By: Confirmed By:SHY GALLOWAY MD
--- NOTE | 2016-09-15 09:58 | CONSULT ---
Consultation: REQUESTING PROVIDER: CONSULT REQUEST: We have been asked to medically evaluate this patient for peritonitis. HISTORY OF PRESENT ILLNESS: 66 year old woman w/ pmh of diverticulosis, HTN, and obesity who presented to the ED w/ one week of worsening BL abdominal pain, more prominent on R-side. Pt endorses one week of diffuse, intermittent abdominal pain which felt like "cramping" BL in the lower abdomen, more intense on the R side. Pt endorses some mild constipation at the time, but denies any other major symptoms. A few days prior to admission, patient endorses continual worsening of the pain, most intense on the morning of admission, which she rated as 10/10, constant, with no radiation, most intense in the RLQ. She denies any fever, chills, CP, back pain, diarrhea, hematochezia, melena, dysuria, rashes or N/V. She endorses decreased PO intake of 2 days duration and one week of constipation, with hardened, small stools, but no other irregularities of her BMs. Patient denies any travel, sick contacts, or changes in diet. She denies any other GI//POWER DISTRIBUTOR conditions and has never been hospitalized for a GI issue before. On admission to the ED, patient received abdominal imaging and was found to have pneumoperitoneum and free fluid in the abdomen, w/ suspected perforated viscous. Labs notable for WBC of 19, but lactate of 0.7 and was not febrile or hypotensive. Pt was taken to the OR emergently for a Pilar Procedure to resect the perforated bowel. PMHx Diverticulosis HTN HLD Asthma Vertigo HIV status unknown Obesity PSHx x2 R eye surgery? Allergies NKDA Fam Hx Brother with CAD (CABG) Two daughters w/ asthma Grandduaghter w/ morbid obesity Social Hx Retired, was on disability since 1999 for asthma. 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 No drugs, alcohol or smoking. 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 Frequently cares for grandchildren. REVIEW OF SYSTEMS: CONSTITUTIONAL: loss of appetite Absent: fever, chills, diaphoresis, generalized weakness, malaise, weight change HEENT: Absent: rhinorrhea, nasal congestion, throat pain, throat swelling, ear pain, eye pain, visual changes CARDIOVASCULAR: Absent: chest pain, syncope, palpitations, irregular heart rate, lightheadedness , peripheral edema RESPIRATORY: Absent: cough, shortness of breath, dyspnea with exertion, orthopnea, hemoptysis GASTROINTESTINAL: abdominal pain, abdominal distension, constipation Absent: nausea, vomiting, diarrhea, hematochezia GENITOURINARY: Absent: dysuria, frequency, urgency, hesitancy, hematuria, flank pain MUSCULOSKELETAL: Absent: myalgia, arthralgia, joint swelling, back pain SKIN: Absent: rash, itching ENDOCRINE: Absent: unexplained weight gain, unexplained weight loss NEUROLOGIC: occasional posterior MATHEW on R side Absent: focal weakness or paresthesias, mental status changes, bladder or bowel incontinence PHYSICAL EXAMINATION Vital Signs - 24 hr 09/14/16 09/14/16 09/14/16 16:34 16:45 17:00 Temperature 97.8 F Pulse Rate 104 H 101 H 102 H Respiratory 12 16 14 Rate Blood Pressure 123/76 129/74 132/73 O2 Sat by Pulse 96 94 L 94 L Oximetry (%) 09/14/16 09/14/16 09/14/16 17:15 17:30 17:45 Temperature Pulse Rate 101 H 98 H 94 H Respiratory 19 16 17 Rate Blood Pressure 113/67 112/66 108/62 O2 Sat by Pulse 95 95 94 L Oximetry (%) 09/14/16 09/14/16 09/14/16 18:00 18:15 18:27 Temperature Pulse Rate 95 H 93 H 93 H Respiratory 15 15 18 Rate Blood Pressure 106/70 104/63 102/69 O2 Sat by Pulse 93 L 94 L Oximetry (%) 09/14/16 09/14/16 09/14/16 18:30 18:45 19:00 Temperature Pulse Rate 93 H 92 H 95 H Respiratory 18 15 19 Rate Blood Pressure 102/69 101/65 100/70 O2 Sat by Pulse 94 L 94 L 93 L Oximetry (%) 09/14/16 09/14/16 09/14/16 19:15 19:30 20:00 Temperature 98.3 F Pulse Rate 94 H 90 92 H Respiratory 15 18 18 Rate Blood Pressure 101/66 105/60 117/77 O2 Sat by Pulse 94 L Oximetry (%) 09/14/16 09/14/16 09/14/16 20:19 20:30 20:54 Temperature 97.6 F Pulse Rate 91 H 90 Respiratory 18 21 Rate Blood Pressure 117/70 117/77 O2 Sat by Pulse 94 L Oximetry (%) 09/14/16 09/14/16 09/14/16 21:00 21:30 22:00 Temperature 98 F Pulse Rate 89 85 89 Respiratory 17 16 14 Rate Blood Pressure 104/69 108/70 103/69 O2 Sat by Pulse 94 L Oximetry (%) 09/14/16 09/15/16 09/15/16 23:00 00:00 00:39 Temperature Pulse Rate 85 88 88 Respiratory 15 12 18 Rate Blood Pressure 98/61 94/65 86/63 O2 Sat by Pulse Oximetry (%) 09/15/16 09/15/16 09/15/16 01:00 01:30 02:00 Temperature Pulse Rate 88 89 92 H Respiratory 16 14 18 Rate Blood Pressure 94/66 97/66 98/70 O2 Sat by Pulse Oximetry (%) 09/15/16 09/15/16 09/15/16 03:00 04:00 05:00 Temperature 98 F 97 F L Pulse Rate 90 88 85 Respiratory 20 22 18 Rate Blood Pressure 99/64 93/64 101/68 O2 Sat by Pulse Oximetry (%) 09/15/16 09/15/16 05:58 06:00 Temperature Pulse Rate 86 90 Respiratory 19 14 Rate Blood Pressure 101/68 107/65 O2 Sat by Pulse Oximetry (%) GENERAL: Awake, alert, and fully oriented, in no acute distress. Lying in bed w / NG tube. HEAD: Normal with no signs of trauma. EYES: Pupils equal, round and reactive to light, extraocular movements intact, sclera anicteric, conjunctiva clear. No lid lag. EARS, NOSE, THROAT: Ears normal, nares patent, oropharynx clear without exudates. Moist mucous membranes. Significant yellowing of teeth. NECK: supple without lymphadenopathy, JVD, or masses. LUNGS: Breath sounds equal, clear to auscultation bilaterally. No wheezes, and no crackles. No accessory muscle use. HEART: Regular rate and rhythm, normal S1 and S2 without murmur, rub or gallop. ABDOMEN: Prominent midline incision and drainage bag, with no evidence of infection (erythema/induration/calor). Distended and focally tender to palpation near surgical site. Negative mckeon's sign. Hypoactive bowel sounds. No guarding, no rebound tenderness, no masses. No hepatomegaly or splenomegaly. MUSCULOSKELETAL: Normal range of motion at all joints. No bony deformities or tenderness. No CVA tenderness. UPPER EXTREMITIES: 2+ pulses, warm, well-perfused. No cyanosis. No clubbing. Cap refill <2 seconds. No peripheral edema. LOWER EXTREMITIES: 2+ pulses, warm, well-perfused. No calf tenderness. No peripheral edema. NEUROLOGICAL: Cranial nerves II-XII grossly intact. Normal speech. gait not evaluated. PSYCHIATRIC: Cooperative. Good eye contact. Appropriate mood and affect. SKIN: Warm, dry, normal turgor, no rashes or lesions noted. Laboratory Results - last 24 hr CBC, BMP 09/15/16 05:50 09/15/16 05:50 09/15/16 09/15/16 09/15/16 01:00 05:23 05:50 WBC 13.8 H RBC 3.54 L D Hgb 10.7 D Hct 32.6 D MCV 92.0 MCH 30.2 MCHC 32.8 RDW 13.6 Plt Count 273 D MPV 8.9 Sodium Potassium Chloride Carbon Dioxide Anion Gap BUN Creatinine POC Glucometer [id number] 174.66677 Random Glucose Hemoglobin A1c % Calcium Phosphorus Magnesium 09/15/16 09/15/16 05:50 05:50 WBC RBC Hgb Hct MCV MCH MCHC RDW Plt Count MPV Sodium 143 Potassium 4.2 Chloride 110 H Carbon Dioxide 26 Anion Gap 7 L BUN 14 Creatinine 0.7 POC Glucometer Random Glucose 137 H Hemoglobin A1c % 5.6 Calcium 7.7 L Phosphorus 3.2 Magnesium 1.9 CXR (09/15): NG tube in place. No pneumo. CT-scan: (09/14): Pneumoperitoneum w/ free fluid in the abdomen. Diverticulosis w / accompanying sigmoid distension from fecal retention and bowel wall thickening. Suspected viscous perforation/erosion w/ no abscess. Active Medications Generic Name Dose Route Start Last Admin Trade Name Freq PRN Reason Stop Dose Admin Acetaminophen 650 mg 09/14/16 14:07 Tylenol - PO Q4H PRN FEVER OR PAIN Albuterol Sulfate 1 puff 09/14/16 14:45 Ventolin Hfa Inhaler - IH Q4H PRN ASTHMA Atorvastatin Calcium 10 mg 09/15/16 22:00 Lipitor - PO HS CHRIS Ceftriaxone Sodium 2 gm 09/15/16 10:00 Rocephin 2gm Ivpb (Pre-Docked) IVPB DAILY [facility] Protocol Chlorhexidine Gluconate 1 applic 09/14/16 22:00 09/14/16 22:41 Hibiclens For Decolonization - TP 1 applic HS CHRIS Administration Enoxaparin Sodium 40 mg 09/15/16 10:00 Lovenox - SQ DAILY CHRIS Folic Acid 1 mg 09/15/16 10:00 Folic Acid - PO DAILY [facility]IS Hydromorphone HCl 0.5 mg 09/14/16 16:42 Dilaudid Injection - IVPUSH 09/17/16 16:43 [id number] PRN PAIN Hydromorphone HCl 10 mg 09/14/16 17:45 09/14/16 20:00 Dilaudid Bore Miner Operator - COVER MAKER 09/21/16 17:43 Not Given COVER MAKER [facility] Protocol Pantoprazole Sodium 40 mg/ 100 mls @ 200 mls/hr 09/15/16 10:00 Sodium Chloride IVPB DAILY [facility]IS Sodium Chloride 1,000 mls @ 100 mls/hr 09/14/16 14:15 09/14/16 20:00 Normal Saline - IV 100 mls/hr ASDIR CHRIS Administration Piperacillin Sod/Tazobactam 50 mls @ 100 mls/hr 09/14/16 15:00 Sod 3.375 gm/ Dextrose IVPB Q6H-IV [facility] Protocol Metronidazole 100 mls @ 100 mls/hr 09/15/16 10:00 Flagyl 500mg Premixed Ivpb - IVPB Q8H-IV [facility] Ibuprofen 800 mg 09/14/16 14:12 Caldolor Injection - IVPB Q6H PRN PAIN Montelukast Sodium 10 mg 09/15/16 22:00 Singulair - PO HS [facility] Mupirocin 1 applic 09/14/16 22:00 09/14/16 22:40 Bactroban Ointment (For Decolonization) - NS 09/19/16 21:59 1 applic BID [facility]IS Administration Ondansetron HCl 4 mg 09/14/16 14:07 Zofran Injection IVPB Q6H PRN NAUSEA ASSESSMENT/PLAN: 66 year old woman w/ pmh of diverticulosis, HTN, and obesity who presented to the ED w/ one week of worsening BL abdominal pain, more prominent on R-side. Physical exam notable for prominent midline abdominal incision w/o erythema or edema, no rebound tenderness and no fever or hypotension. Labs notable for donwtrending WBC count and normal lactate. Blood and urine Cx's pending. Initial imaging notable for perforated rectosigmoid colon and pneumoperitoneum. Given the clinical presentation of acute peritonitis and perforation requiring bowel resection, we recommend covering for anaerobic/GN enterics in the setting of resolving peritonitis. Pt appears to be improving clinically, but should be monitored for any signs of recurrence/worsening of infectious symptoms. #Peritonitis - 7 day Abx course - Rocephin 2G IV daily - Flagyl 500mg IV Q8H - Trend fever curve, WBC - Daily CBCs - Monitor surgical site for infection/abscess/drainage - Vitals Q8h Aleksandr Ha MD, PGY1 Plan discussed with attending, Dr. Macias Dispo: We will continue to follow the patient. Thank you for this consultative opportunity. Problem List - Problems (1) Diverticulitis Code(s): K57.92 - DVTRCLI OF INTEST, PART UNSP, W/O PERF OR ABSCESS W/O BLEED Qualifiers: Diverticulitis site: unspecified part of intestinal tract Diverticulitis bleeding: without bleeding Diverticulitis complication: unspecified complication status Qualified Code(s): K57.92 - Diverticulitis of intestine, part unspecified, without perforation or abscess without bleeding (2) Perforation bowel Code(s): K63.1 - PERFORATION OF INTESTINE (NONTRAUMATIC) Visit type - Emergency Visit Emergency Visit: No - New Patient This patient is new to me today: Yes Date on this admission: 09/15/16 - Critical Care Critical Care patient: No
[2016-09-15] MEDS ORDERED: LOSARTAN POTASSIUM 50 MG TABLET (FP) PO SCH (10:00)
[2016-09-15] MEDS: PANTOPRAZOLE SODIUM 40 MG in SODIUM CHLORIDE 100 ML IVPB SCH (10:56)
[2016-09-15] MEDS: cefTRIAXone 2 GM/100 ML BAG (PRE-DOCKED) IVPB SCH (10:57)
[2016-09-15] MEDS: ENOXAPARIN NA (PORCINE) 40 MG/0.4 ML DISP.SYRIN SQ SCH (10:57)
--- NOTE | 2016-09-15 10:58 | PN ---
Progress Note, Physician Chief Complaint: Ms Aguilar says she has a sore throat and abdominal pain. No cp or sob. - Current Medication List Current Medications: Active Medications Acetaminophen (Tylenol -) 650 mg PO Q4H PRN PRN Reason: FEVER OR PAIN Albuterol Sulfate (Ventolin Hfa Inhaler -) 1 puff IH Q4H PRN PRN Reason: ASTHMA Atorvastatin Calcium (Lipitor -) 10 mg PO HS [facility] Ceftriaxone Sodium (Rocephin 2gm Ivpb (Pre-Docked)) 2 gm IVPB DAILY CHRIS PRN Reason: Protocol Chlorhexidine Gluconate (Hibiclens For Decolonization -) 1 applic TP HS [facility] Last Admin: 09/14/16 22:41 Dose: 1 applic Enoxaparin Sodium (Lovenox -) 40 mg SQ DAILY [facility]IS Folic Acid (Folic Acid -) 1 mg PO DAILY [facility] Hydromorphone HCl (Dilaudid Injection -) 0.5 mg IVPUSH [id number] PRN PRN Reason: PAIN Stop: 09/17/16 16:43 Hydromorphone HCl (Dilaudid Screw Machine Adjuster Automatic -) 10 mg REGISTER REPAIRER REGISTER REPAIRER CHRIS PRN Reason: Protocol Stop: 09/21/16 17:43 Last Admin: 09/14/16 20:00 Dose: Not Given Pantoprazole Sodium 40 mg/ (Sodium Chloride) 100 mls @ 200 mls/hr IVPB DAILY [facility] Sodium Chloride (Normal Saline -) 1,000 mls @ 100 mls/hr IV ASDIR [facility] Last Admin: 09/14/16 20:00 Dose: 100 mls/hr Piperacillin Sod/Tazobactam (Sod 3.375 gm/ Dextrose) 50 mls @ 100 mls/hr IVPB Q6H-IV [facility]RIS PRN Reason: Protocol Metronidazole (Flagyl 500mg Premixed Ivpb -) 100 mls @ 100 mls/hr IVPB Q8H-IV [facility] Ibuprofen (Caldolor Injection -) 800 mg IVPB Q6H PRN PRN Reason: PAIN Montelukast Sodium (Singulair -) 10 mg PO HS [facility] Mupirocin (Bactroban Ointment (For Decolonization) -) 1 applic NS BID [facility] Stop: 09/19/16 21:59 Last Admin: 09/14/16 22:40 Dose: 1 applic Ondansetron HCl (Zofran Injection) 4 mg IVPB Q6H PRN PRN Reason: NAUSEA - Objective Vital Signs: Vital Signs Temperature 97 F L 09/15/16 05:00 Pulse Rate 83 09/15/16 10:23 Respiratory Rate 14 09/15/16 08:00 Blood Pressure 99/71 09/15/16 08:00 O2 Sat by Pulse Oximetry (%) 92 L 09/15/16 10:23 Constitutional: Yes: No Distress, Calm, Obese Cardiovascular: Yes: Regular Rate and Rhythm. No: Gallop, Murmur, Rub Respiratory: Yes: Regular, CTA Bilaterally. No: Rales, Rhonchi, Wheezes Gastrointestinal: Yes: Hypoactive Bowel Sounds, Tenderness. No: Distention Extremities: Yes: WNL Edema: No Labs: CBC, BMP 09/15/16 05:50 09/15/16 05:50 Problem List - Problems (1) Perforation bowel Assessment/Plan: -s/p laparotomy -surgery following -continue NGT and npo Code(s): K63.1 - PERFORATION OF INTESTINE (NONTRAUMATIC) (2) Sepsis Assessment/Plan: -secondary to perforated bowel -ID following -continue rocephin and flagyl -leukocytosis improving Code(s): A41.9 - SEPSIS, UNSPECIFIED ORGANISM (3) Hypertension Assessment/Plan: -currently hypotensive -continue IVF Code(s): I10 - ESSENTIAL (PRIMARY) HYPERTENSION (4) HLD (hyperlipidemia) Assessment/Plan: -continue statin when taking po Code(s): E78.5 - HYPERLIPIDEMIA, UNSPECIFIED
[2016-09-15] MEDS: METRONIDAZOLE 500 MG PREMIXED 100 ML IVPB SCH ×2 (10:59→17:49)
[2016-09-15] MEDS: FOLIC ACID 1 MG TABLET (FP) PO SCH (11:00)
--- NOTE | 2016-09-15 12:09 | CONS ---
DATE OF CONSULTATION: 09/13/2016 REASON FOR CONSULTATION: Perforated viscus. This is a consultation at the request of the emergency room physician. BRIEF HISTORY: This is a 66-year-old female morbidly obese with a history of hypertension and asthma who presented to [facility] Emergency Room complaining of a 2-day history of abdominal pain and constipation. While here, she was noted to have an elevated white blood cell count and a CAT scan of the abdomen and pelvis showing pneumoperitoneum. There was also thickening of her sigmoid colon with inflammatory changes around it and multiple diverticula as well as cecal impaction. Request was made for emergent surgical evaluation. The patient denies nausea, denies vomiting, denied fever at home. PAST MEDICAL HISTORY: As stated in HPI. PAST SURGICAL HISTORY: Includes 2 sections and an eye surgery. She has never had a colonoscopy. SOCIAL HISTORY: Negative for alcohol. Negative for tobacco. ALLERGIES: She has no known drug allergies. HOME MEDICATIONS: Include Singulair. REVIEW OF SYSTEMS: General: Denies fatigue or malaise. Cardiac: Denies chest pain or palpitations. Respiratory: Denies shortness of breath or wheeze. Gastrointestinal: Admits to abdominal pain. Admits to constipation. Genitourinary: Denies dysuria. Musculoskeletal: Denies joint pain or joint swelling. Psychiatric: Denies anxiety, depression, or hearing voices. PHYSICAL EXAMINATION: General: This is a morbidly obese 66-year-old female in no distress. HEENT: Her head is normocephalic. Sclerae anicteric. Neck: Supple. Chest: Clear. Abdomen: Soft. It is distended. She has significant tenderness in her lower abdomen and mild tenderness in her upper abdomen. She has a midline scar below her umbilicus. There are no temperatures recorded since she has been in the emergency room since 8 o'clock this morning. At that point, only blood pressure and heart rate were recorded, which are normal. Extremities: Edema. On review of her laboratory, her white blood cell count is elevated at 19 with an 86% shift. Her chemistries are unremarkable with normal BUN and creatinine. On review of her imaging, she has a CT scan of her abdomen and pelvis, which shows a small amount of free fluid in the abdomen and pelvis with droplets of air, diverticulosis, pericolonic edema, fecal retention. There is no air noted above the liver, but there are multiple droplets of air. ASSESSMENT: This is a 66-year-old female with 2 days of abdominal pain, leukocytosis, peritoneal findings on physical exam, and a CAT scan showing multiple droplets of air on CT and likely inflamed sigmoid colon. Clinically, this is either perforated diverticulitis or a stercoral ulcer in the sigmoid colon. At this point, recommend the patient undergo a laparotomy with likely colectomy and colostomy. The patient and her daughter are agreeable. They understand that she will definitely have a colostomy from this operation. She was also offered medical management with intravenous antibiotics in the hope that the hole will seal and that her sepsis will improve. The patient wants her pain to go away immediately and does not want that option. She understands that she will definitely have a colostomy and if she wants to have it reversed it would be a major elective surgery with multiple potential complications. At this point, I will change her antibiotics to Zosyn from Levaquin, which will cover Escherichia coli and other enteric as well as gram-negative related philly. I have already notified the nursing supervisor welding equipment repairer, and we will make plans for emergency surgery as soon as an OR team is available. DO SEDA ALBERTO/[id number]
--- NOTE | 2016-09-15 13:15 | PN ---
Teaching Attending Note Name of Resident: Rustam Mendiola ATTENDING PHYSICIAN STATEMENT I saw and evaluated the patient. I reviewed the resident's note and discussed the case with the resident. I agree with the resident's findings and plan as documented. SUBJECTIVE: Pt seen and examined in the ICU. Pain controlled with current regimen. No nausea or vomiting. No fevers or chills. OBJECTIVE: Last Vital Signs Temp Pulse Resp BP Pulse Ox 97.6 F 80 19 105/67 92 L 09/15/16 10:00 09/15/16 12:00 09/15/16 12:00 09/15/16 12:00 09/15/16 10:23 Intake & Output 09/12/16 09/13/16 09/14/16 09/15/16 23:59 23:59 23:59 23:59 Intake Total 2800 1800 Output Total 1045 195 Balance 1755 1605 Weight 190 lb 6 oz 197 lb 4 oz Gen: NAD at rest Heart: RRR Lung: decreased breath sounds at the bases Abd: soft, appropriately tender, +ostomy pink Ext: no edema CBC, BMP 09/15/16 05:50 09/15/16 05:50 Active Medications Acetaminophen (Tylenol -) 650 mg PO Q4H PRN PRN Reason: FEVER OR PAIN Albuterol Sulfate (Ventolin Hfa Inhaler -) 1 puff IH Q4H PRN PRN Reason: ASTHMA Atorvastatin Calcium (Lipitor -) 10 mg PO HS [facility] Ceftriaxone Sodium (Rocephin 2gm Ivpb (Pre-Docked)) 2 gm IVPB DAILY CHRIS PRN Reason: Protocol Last Admin: 09/15/16 10:57 Dose: 2 gm Chlorhexidine Gluconate (Hibiclens For Decolonization -) 1 applic TP HS [facility] Last Admin: 09/14/16 22:41 Dose: 1 applic Enoxaparin Sodium (Lovenox -) 40 mg SQ DAILY [facility] Last Admin: 09/15/16 10:57 Dose: 40 mg Folic Acid (Folic Acid -) 1 mg PO DAILY [facility] Last Admin: 09/15/16 11:00 Dose: Not Given Hydromorphone HCl (Dilaudid Injection -) 0.5 mg IVPUSH [id number] PRN PRN Reason: PAIN Stop: 09/17/16 16:43 Hydromorphone HCl (Dilaudid Train Operations Supervisor -) 10 mg STEM THRESHING MACHINE OPERATOR STEM THRESHING MACHINE OPERATOR CHRIS PRN Reason: Protocol Stop: 09/21/16 17:43 Last Admin: 09/14/16 20:00 Dose: Not Given Pantoprazole Sodium 40 mg/ (Sodium Chloride) 100 mls @ 200 mls/hr IVPB DAILY [facility]RIS Last Admin: 09/15/16 10:56 Dose: 200 mls/hr Piperacillin Sod/Tazobactam (Sod 3.375 gm/ Dextrose) 50 mls @ 100 mls/hr IVPB Q6H-IV CHRIS PRN Reason: Protocol Metronidazole (Flagyl 500mg Premixed Ivpb -) 100 mls @ 100 mls/hr IVPB Q8H-IV [facility]IS Last Admin: 09/15/16 10:59 Dose: 100 mls/hr Dextrose/Sodium Chloride (D5-1/2ns -) 1,000 mls @ 100 mls/hr IV ASDIR [facility]RIS Ibuprofen (Caldolor Injection -) 800 mg IVPB Q6H PRN PRN Reason: PAIN Montelukast Sodium (Singulair -) 10 mg PO HS [facility] Mupirocin (Bactroban Ointment (For Decolonization) -) 1 applic NS BID [facility] Stop: 09/19/16 21:59 Last Admin: 09/14/16 22:40 Dose: 1 applic Ondansetron HCl (Zofran Injection) 4 mg IVPB Q6H PRN PRN Reason: NAUSEA ASSESSMENT AND PLAN: Perforated Diverticulitis s/p Exploratory Laparotomy/Sigmoid Colectomy/Colostomy 09/14 Sepsis HTN Hyperlipidemia Asthma - continue antibiotics - IVF - NPO - monitor lytes - pain control - incentive spirometry - inhaled bronchodilators - OOB to chair - await return of bowel function - DVT prophylaxis
--- NOTE | 2016-09-15 13:37 | OP ---
DATE OF OPERATION: 09/14/2016 PREOPERATIVE DIAGNOSES: Perforated viscus, sepsis, peritonitis. POSTOPERATIVE DIAGNOSES: Perforated viscus, sepsis, peritonitis, perforated sigmoid colon, suspected sigmoid diverticulosis. PROCEDURE: Exploratory laparotomy, sigmoid colectomy, creation of colostomy, creation of mucus fistula, drainage of abscess, lavage SURGEON: Pablo Galarza DO SINKER PULLER: None. This was emergency. ANESTHESIOLOGIST: Joe Earl MD INTRAOPERATIVE FINDINGS: Perforated sigmoid colon at the location near a diverticulum with abscess in the pelvis. BLOOD LOSS: Approximately 100 mL. DRAINS: Tulio-Bruce drain in the pelvis. COMPLICATIONS: None. SPECIMEN: Sigmoid colon with perforation. Stapled the end merrill proximal. DISPOSITION: Recovery room in stable condition with plans to go to the intensive care unit. BRIEF HISTORY: This is a 66-year-old female who presented to [facility] with perforated viscus felt likely to be diverticulitis in nature. She was started on intravenous antibiotics and presents now for surgery. DESCRIPTION OF PROCEDURE: The patient was placed in a supine position. General anesthesia was initiated. The abdomen was prepped and draped in a sterile fashion. A Castellanos catheter as well as a nasogastric tube was placed. Next, the abdomen was prepped and draped in sterile fashion. A vertical incision was made from approximately 3 inches above her umbilicus to approximately 6 inches below. The patient was noted to have a large ventral hernia that was not addressed during the surgery. The incision went to the right of this hernia. At this point, the fascia was opened in the midline. The peritoneum was entered sharply. The abdominal cavity was entered. There were light omental adhesions from a previous section. Upon entering the pelvic, a sigmoid mass was pulled cephalad, and a large amount of pus was freed. This was suctioned and irrigated. It was sent for culture. At this point, 6 L of warm saline was used to irrigate the abdomen. Next, the sigmoid colon was mobilized. The white line was mobilized going cephalad along the left sidewall. The ureter was identified. It was not involved in the inflammatory process. At this point, an area proximal to the inflammatory mass was divided with a YULIANA 80 and was felt to be adequate for an end colostomy. Next, a LigaSure device was used to divide the mesoappendix of the inflamed segment of sigmoid with perforation. This was taken down to a healthy segment, and a Belinda clamp was placed across it. The mesentery was divided, and the sigmoid colon with perforation was sent off to pathology. Next, more lavage was done. All return was clear. The ureter was again identified and intact. The liver was palpated. It was smooth. The nasogastric tube was felt to be in proper position in the stomach. At this point, a location for a colostomy was selected. Based on preoperative mapping and the patient's obesity, she was unable to see below her umbilicus; therefore, a location was made above the umbilicus on the left in the mid rectus. A core of skin and fat was taken down to the anterior rectus sheath. It was opened in a cruciate fashion. The rectus muscle was then split. The posterior sheath was opened, and 2 fingerbreadths were placed within it. The end portion of distal descending colon was delivered in order to make plans to mature an end colostomy. Next, a Tulio-Bruce drain was placed in the pelvis and brought out through the right lower quadrant and secured with a silk drain stitch. The distal rectum with a Belnida clamp was brought up into the lower portion of the wound to become a mucus fistula. The wound was then closed with running PDS suture and interrupted No. 1 Vicryl sutures. The mucus fistula was incorporated into the wound. The mucus fistula was then matured to the skin, and the Belinda clamp was removed. The main wound was left open and packed with iodoform gauze. The colostomy was matured with interrupted 3-0 chromic sutures in a robinson fashion. Of note, the instruments were changed to a closing tray at this point, and the surgeon and scrub nurse changed gloves as well as gown. At the end of the operation, the colostomy was pink and protruding. The wound was covered with a dry dressing. The mucus fistula was covered with iodoform gauze. Castellanos catheter and nasogastric tube were left in place, and the patient was sent to the recovery room in stable condition with plans for monitoring in the intensive care unit. DO SEDA ALBERTO/[id number] MTDD
[2016-09-15] MEDS: DEXTROSE 5%-0.45% SALINE 1,000 ML IV SCH (14:54)
--- NOTE | 2016-09-15 14:59 | PN ---
Physical Exam: SUBJECTIVE: Patient seen and examined. Patient states pain controlled with CROWN PERFORATOR OPERATOR. No other complaints. OBJECTIVE: Vital Signs Temperature 97.8 F 09/15/16 14:00 Pulse Rate 79 09/15/16 14:00 Respiratory Rate 19 09/15/16 14:00 Blood Pressure 105/67 09/15/16 14:00 O2 Sat by Pulse Oximetry (%) 92 L 09/15/16 10:23 GENERAL: The patient is awake, alert, and fully oriented, in no acute distress. HEAD: Normal with no signs of trauma. EYES: extraocular movements intact, sclera anicteric, conjunctiva clear. No ptosis. NECK: Trachea midline, full range of motion, supple. LUNGS: Breath sounds equal, clear to auscultation bilaterally, no wheezes, no crackles, no accessory muscle use. HEART: Regular rate and rhythm, S1, S2 without murmur, rub or gallop. ABDOMEN: Soft, nontender, nondistended, normoactive bowel sounds, no guarding, no rebound. EXTREMITIES: warm, well-perfused, no edema. NEUROLOGICAL: Cranial nerves II through X grossly intact. Normal speech, gait not observed. PSYCH: Normal mood, normal affect. SKIN: Warm, dry, normal turgor, no rashes or lesions noted Laboratory Results - last 24 hr 09/15/16 09/15/16 09/15/16 01:00 05:23 05:50 WBC 13.8 H RBC 3.54 L D Hgb 10.7 D Hct 32.6 D MCV 92.0 MCH 30.2 MCHC 32.8 RDW 13.6 Plt Count 273 D MPV 8.9 Sodium Potassium Chloride Carbon Dioxide Anion Gap BUN Creatinine POC Glucometer [phone] Random Glucose Hemoglobin A1c % Calcium Phosphorus Magnesium 09/15/16 09/15/16 05:50 05:50 WBC RBC Hgb Hct MCV MCH MCHC RDW Plt Count MPV Sodium 143 Potassium 4.2 Chloride 110 H Carbon Dioxide 26 Anion Gap 7 L BUN 14 Creatinine 0.7 POC Glucometer Random Glucose 137 H Hemoglobin A1c % 5.6 Calcium 7.7 L Phosphorus 3.2 Magnesium 1.9 Active Medications Generic Name Dose Route Start Last Admin Trade Name Freq PRN Reason Stop Dose Admin Acetaminophen 650 mg 09/14/16 14:07 Tylenol - PO Q4H PRN FEVER OR PAIN Albuterol Sulfate 1 puff 09/14/16 14:45 Ventolin Hfa Inhaler - IH Q4H PRN ASTHMA Atorvastatin Calcium 10 mg 09/15/16 22:00 Lipitor - PO HS [facility] Ceftriaxone Sodium 2 gm 09/15/16 10:00 09/15/16 10:57 Rocephin 2gm Ivpb (Pre-Docked) IVPB 2 gm DAILY CHRIS Administration Protocol Chlorhexidine Gluconate 1 applic 09/14/16 22:00 09/14/16 22:41 Hibiclens For Decolonization - TP 1 applic HS [facility] Administration Enoxaparin Sodium 40 mg 09/15/16 10:00 09/15/16 10:57 Lovenox - SQ 40 mg DAILY CHRIS Administration Folic Acid 1 mg 09/15/16 10:00 09/15/16 11:00 Folic Acid - PO Not Given DAILY CHRIS Hydromorphone HCl 0.5 mg 09/14/16 16:42 Dilaudid Injection - IVPUSH 09/17/16 16:43 [id number] PRN PAIN Hydromorphone HCl 10 mg 09/14/16 17:45 09/14/16 20:00 Dilaudid Clinical Research Nurse - CROWN PERFORATOR OPERATOR 09/21/16 17:43 Not Given CROWN PERFORATOR OPERATOR [facility] Protocol Pantoprazole Sodium 40 mg/ 100 mls @ 200 mls/hr 09/15/16 10:00 09/15/16 10:56 Sodium Chloride IVPB 200 mls/hr DAILY CHRIS Administration Piperacillin Sod/Tazobactam 50 mls @ 100 mls/hr 09/14/16 15:00 Sod 3.375 gm/ Dextrose IVPB Q6H-IV CHRIS Protocol Metronidazole 100 mls @ 100 mls/hr 09/15/16 10:00 09/15/16 10:59 Flagyl 500mg Premixed Ivpb - IVPB 100 mls/hr Q8H-IV CHRIS Administration Dextrose/Sodium Chloride 1,000 mls @ 100 mls/hr 09/15/16 13:15 D5-1/2ns - IV ASDIR [facility] Ibuprofen 800 mg 09/14/16 14:12 Caldolor Injection - IVPB Q6H PRN PAIN Montelukast Sodium 10 mg 09/15/16 22:00 Singulair - PO HS [facility] Mupirocin 1 applic 09/14/16 22:00 09/14/16 22:40 Bactroban Ointment (For Decolonization) - NS 09/19/16 21:59 1 applic BID CHRIS Administration Ondansetron HCl 4 mg 09/14/16 14:07 Zofran Injection IVPB Q6H PRN NAUSEA ASSESSMENT/PLAN: 66 yo F w/ PMH diverticulosis & chronic constipation presents to the ED with worsening abdominal pain. Patient was found to have a bowel perforation and underwent a sigmoidectomy. Patient was transferred to ICU for further monitoring. Neuro Pulmonary -patient has history of asthma -no shortness of breath currently -continue with bronchodilators Abdominal -s/p signoidectomy /2 diverticulosis with bowel perforation -pain controlled -ostomy well perfused and draining serosanguinous fluid -f/u results of sepsis workup; medications as per ID FEN -D5 /2 NS at 100 -will monitor lytes -NPO Dispo -continue to monitor in ICU Problem List - Problems (1) Constipation Code(s): K59.00 - CONSTIPATION, UNSPECIFIED Qualifiers: Constipation type: unspecified constipation type Qualified Code(s): K59.00 - Constipation, unspecified (2) Diverticulitis Code(s): K57.92 - DVTRCLI OF INTEST, PART UNSP, W/O PERF OR ABSCESS W/O BLEED Qualifiers: Diverticulitis site: unspecified part of intestinal tract Diverticulitis bleeding: without bleeding Diverticulitis complication: unspecified complication status Qualified Code(s): K57.92 - Diverticulitis of intestine, part unspecified, without perforation or abscess without bleeding (3) HLD (hyperlipidemia) Code(s): E78.5 - HYPERLIPIDEMIA, UNSPECIFIED (4) Hypertension Code(s): I10 - ESSENTIAL (PRIMARY) HYPERTENSION (5) Perforation of sigmoid colon due to diverticulitis Code(s): K57.20 - DVTRCLI OF LG INT W PERFORATION AND ABSCESS W/O BLEEDING (6) Sepsis Code(s): A41.9 - SEPSIS, UNSPECIFIED ORGANISM Visit type - Emergency Visit Emergency Visit: Yes ED Registration Date: 09/14/16 Care time: The patient presented to the Emergency Department on the above date and was hospitalized for further evaluation of their emergent condition. - New Patient This patient is new to me today: Yes Date on this admission: 09/15/16 - Critical Care Critical Care patient: Yes Total Critical Care Time (in minutes): 35 Critical Care Statement: The care of this patient involved high complexity decision making to prevent further life threatening deterioration of the patient 's condition and/or to evalute & treat vital organ system(s) failure or risk of failure.
--- NOTE | 2016-09-15 16:59 | PN ---
Progress Note (short form) - Note Progress Note: surgery pt seen and examined. feels better than before surgery. some incisional pain. no nausea afebrile abd- soft, moderate distension, dressing c/d/i, colostomy p/p/p, maxi serous, u/o 1000, ngt- 15 Laboratory Tests 09/15/16 05:50 WBC 13.8 H Hgb 10.7 D Plt Count 273 D A/P 1) Pod#1- cont npo, ngt, ivf, seaman, maxi 2) perforated sigmoid colon- cont abx, cont maxi, follow path, wbc improving 3) open wound- will change packing on Wed 4) prophylaxis- lovenox, protonix, oob, spirometer
[2016-09-15] MEDS: MUPIROCIN 2% TOPICAL OINTMENT FOR DECOLONIZATION NS SCH ×2 (17:49→22:17)
[2016-09-15] MEDS: HYDROmorphone *PCA* 10MG/50ML DISP.SYRIN PCA SCH (17:50)
[2016-09-15] MEDS ORDERED: ATORVASTATIN CA 10 MG TABLET (FP) PO SCH (22:00)
[2016-09-15] MEDS ORDERED: PRAVASTATIN NA 40 MG TABLET PO SCH (22:00)
[2016-09-15] MEDS ORDERED: MONTELUKAST NA 10 MG TABLET PO SCH (22:00)
[2016-09-15] MEDS: CHLORHEXIDINE GLUCONATE 4% CLEANSER FOR DECOLONIZATION TP SCH (22:17)
[2016-09-16] MEDS: DEXTROSE 5%-0.45% SALINE 1,000 ML IV SCH ×3 (01:07→20:50)
[2016-09-16] MEDS: METRONIDAZOLE 500 MG PREMIXED 100 ML IVPB SCH ×3 (01:08→19:15)
[2016-09-16 06:10] LABS: BASOPHIL 0.1 % (0-2.0); MEAN CELL VOLUME 90.9 fl (80-96); MEAN PLT VOLUME 9.5 fl (7.5-11.1); NEUTROPHILS 88.6 % (42.8-82.8); PLATELET COUNT 291 K/MM3 (134-434); RDW 13.4 % (11.6-15.6); WHITE BLOOD COUNT 14.6 K/mm3 (4.0-10.0)
[2016-09-16] MEDS: HYDROmorphone *PCA* 10MG/50ML DISP.SYRIN PCA SCH ×3 (06:19→20:54)
[2016-09-16 07:06] LABS: ANION GAP 6 (8-16); CALCIUM 8.5 mg/dL (8.5-10.1); CO2 28 mmol/L (21-32); CREATININE 0.6 mg/dL (0.55-1.02); GLUCOSE,RANDOM 123 mg/dL (74-106); MAGNESIUM 2.1 mg/dL (1.8-2.4); PHOSPHOROUS 2.2 mg/dL (2.5-4.9)
--- NOTE | 2016-09-16 08:40 | PN ---
Physical Exam: SUBJECTIVE: Patient to be seen and examined by ks - uptrending WBC count (13.8 -> 14.6). Left shift of 88% - Remains afebrile. Denies fever, chills, MATHEW, cough, SOB, N/V, back pain, diarrhea or rashes. Endorses intermittent cramping in RLQ. - No major complaints or overnight events. Appears slightly more somnolent this AM. Complains of R buttock pain due to uncomfortable chair. Other updates: -Blood, urine cx negative. - gram stain of peritoneal fluid pending OBJECTIVE: Vital Signs Period Temp Pulse Resp BP Sys/Kirkpatrick Pulse Ox Last 24 Hr 97.6 F-98.2 F 70-88 14-24 105-138/61-84 92-96 GENERAL: Awake, alert, and fully oriented, in no acute distress. sitting in chair w/ NG tube. HEAD: Normal with no signs of trauma. EYES: sclera anicteric, conjunctiva clear. No lid lag. EARS, NOSE, THROAT: Ears normal, nares patent, oropharynx clear without exudates. Moist mucous membranes. Significant yellowing of anterior teeth. LUNGS: Breath sounds equal, clear to auscultation bilaterally. No wheezes, and no crackles. No accessory muscle use. HEART: Regular rate and rhythm, normal S1 and S2 without murmur, rub or gallop. ABDOMEN: Prominent midline incision and drainage bag, with no evidence of infection (erythema/induration/calor). Colostomy noted on LLQ. Distended and mildly tender to palpation near surgical site. Negative mckeon's sign. Hypoactive bowel sounds. No guarding, no rebound tenderness, no masses. No hepatomegaly or splenomegaly. UPPER EXTREMITIES: 2+ pulses, warm, well-perfused. No cyanosis. No clubbing. Cap refill <2 seconds. No peripheral edema. LOWER EXTREMITIES: 2+ pulses, warm, well-perfused. No calf tenderness. Trace edema bilaterally. NEUROLOGICAL: Cranial nerves II-XII grossly intact. Normal speech. gait not evaluated. PSYCHIATRIC: Cooperative. Good eye contact. Appropriate mood and affect. SKIN: Warm, dry, normal turgor, no rashes or lesions noted. Laboratory Results - last 24 hr CBC, BMP 09/16/16 05:10 09/16/16 05:10 07/09/15/16 09/16/16 05:50 23:31 05:10 WBC 14.6 H RBC 3.24 L Hgb 9.7 L Hct 29.5 L MCV 90.9 MCH 30.0 MCHC 33.0 RDW 13.4 Plt Count 291 MPV 9.5 Neutrophils % 88.6 H Lymphocytes % 4.7 L D Monocytes % 6.6 Eosinophils % 0.0 Basophils % 0.1 Sodium Potassium Chloride Carbon Dioxide Anion Gap BUN Creatinine POC Glucometer [phone] Random Glucose Hemoglobin A1c % 5.6 Calcium Phosphorus Magnesium 09/16/16 05:10 WBC RBC Hgb Hct MCV MCH MCHC RDW Plt Count MPV Neutrophils % Lymphocytes % Monocytes % Eosinophils % Basophils % Sodium 142 Potassium 4.1 Chloride 108 H Carbon Dioxide 28 Anion Gap 6 L BUN 15 Creatinine 0.6 POC Glucometer Random Glucose 123 H Hemoglobin A1c % Calcium 8.5 Phosphorus 2.2 L D Magnesium 2.1 Microbiology 09/15/16 05:50 Blood - Peripheral Venous Blood Culture - Preliminary NO GROWTH OBTAINED AFTER 24 HOURS, INCUBATION TO CONTINUE FOR 4 DAYS. 09/15/16 05:45 Blood - Peripheral Venous Blood Culture - Preliminary NO GROWTH OBTAINED AFTER 24 HOURS, INCUBATION TO CONTINUE FOR 4 DAYS. 09/14/16 14:40 Peritoneal Fluid Gram Stain - Final 09/14/16 11:18 Urine - Urine - Catheterized Urine Culture - Final NO GROWTH OBTAINED Active Medications Generic Name Dose Route Start Last Admin Trade Name Freq PRN Reason Stop Dose Admin Acetaminophen 650 mg 09/14/16 14:07 Tylenol - PO Q4H PRN FEVER OR PAIN Albuterol Sulfate 1 puff 09/14/16 14:45 Ventolin Hfa Inhaler - IH Q4H PRN ASTHMA Atorvastatin Calcium 10 mg 09/15/16 22:00 09/15/16 22:16 Lipitor - PO 10 mg HS CHRIS Administration Ceftriaxone Sodium 2 gm 09/15/16 10:00 09/15/16 10:57 Rocephin 2gm Ivpb (Pre-Docked) IVPB 2 gm DAILY CHRIS Administration Protocol Chlorhexidine Gluconate 1 applic 09/14/16 22:00 09/15/16 22:17 Hibiclens For Decolonization - TP 1 applic HS CHRIS Administration Enoxaparin Sodium 40 mg 09/15/16 10:00 09/15/16 10:57 Lovenox - SQ 40 mg DAILY CHRIS Administration Folic Acid 1 mg 09/15/16 10:00 09/15/16 11:00 Folic Acid - PO Not Given DAILY CHRIS Hydromorphone HCl 0.5 mg 09/14/16 16:42 Dilaudid Injection - IVPUSH 09/17/16 16:43 [id number] PRN PAIN Hydromorphone HCl 10 mg 09/14/16 17:45 09/16/16 06:19 Dilaudid Director Of Food And Nutrition - RESIDENTIAL ELECTRICIAN 09/21/16 17:43 10 mg RESIDENTIAL ELECTRICIAN CHRIS Administration Protocol Pantoprazole Sodium 40 mg/ 100 mls @ 200 mls/hr 09/15/16 10:00 09/15/16 10:56 Sodium Chloride IVPB 200 mls/hr DAILY CHRIS Administration Piperacillin Sod/Tazobactam 50 mls @ 100 mls/hr 09/14/16 15:00 Sod 3.375 gm/ Dextrose IVPB Q6H-IV CHRIS Protocol Metronidazole 100 mls @ 100 mls/hr 09/15/16 10:00 09/16/16 01:08 Flagyl 500mg Premixed Ivpb - IVPB 100 mls/hr Q8H-IV CHRIS Administration Dextrose/Sodium Chloride 1,000 mls @ 100 mls/hr 09/15/16 13:15 09/16/16 01:07 D5-1/2ns - IV 100 mls/hr ASDIR CHRIS Administration Ibuprofen 800 mg 09/14/16 14:12 Caldolor Injection - IVPB Q6H PRN PAIN Montelukast Sodium 10 mg 09/15/16 22:00 09/15/16 22:16 Singulair - PO 10 mg HS CHRIS Administration Mupirocin 1 applic 09/14/16 22:00 09/15/16 22:17 Bactroban Ointment (For Decolonization) - NS 09/19/16 21:59 1 applic BID CHRIS Administration Ondansetron HCl 4 mg 09/14/16 14:07 Zofran Injection IVPB Q6H PRN NAUSEA ASSESSMENT/PLAN: 66 year old woman w/ pmh of diverticulosis, HTN, and obesity who presented to the ED w/ one week of worsening BL abdominal pain, more prominent on R-side. Physical exam notable for prominent midline abdominal incision w/o erythema or edema, no rebound tenderness and no fever or hypotension. Labs notable for uptrending WBC count of 14.6, afebrile. Urine and Blood cx's still pending. Plan to continue covering for anaerobic/GN enterics in the setting of resolving peritonitis on current abx. Pt will no significant clinical change, with mild RLQ cramping. #Peritonitis - CBC notable for WBC of 14.6 - Day 2 of 7 day Abx course - Rocephin 2G IV daily - Flagyl 500mg IV Q8H - f/u op cultures - encourage OOB, IS - Trend fever curve, WBC - Daily CBCs - Monitor surgical site for infection/abscess/drainage - Vitals Q8h Aleksandr Ha MD, PGY1 Plan discussed with attending, Dr. Rivera Dispo: We will continue to follow the patient. Thank you for this consultative opportunity. Problem List - Problems (1) Diverticulitis Code(s): K57.92 - DVTRCLI OF INTEST, PART UNSP, W/O PERF OR ABSCESS W/O BLEED Qualifiers: Diverticulitis site: unspecified part of intestinal tract Diverticulitis bleeding: without bleeding Diverticulitis complication: unspecified complication status Qualified Code(s): K57.92 - Diverticulitis of intestine, part unspecified, without perforation or abscess without bleeding (2) Perforation bowel Code(s): K63.1 - PERFORATION OF INTESTINE (NONTRAUMATIC) Visit type - Emergency Visit Emergency Visit: No - New Patient This patient is new to me today: No - Critical Care Critical Care patient: No
[2016-09-16] MEDS: cefTRIAXone 2 GM/100 ML BAG (PRE-DOCKED) IVPB SCH (10:12)
[2016-09-16] MEDS: MUPIROCIN 2% TOPICAL OINTMENT FOR DECOLONIZATION NS SCH (10:12)
[2016-09-16] MEDS: FOLIC ACID 1 MG TABLET (FP) PO SCH (10:12)
[2016-09-16] MEDS: ENOXAPARIN NA (PORCINE) 40 MG/0.4 ML DISP.SYRIN SQ SCH (10:12)
[2016-09-16] MEDS: PANTOPRAZOLE SODIUM 40 MG in SODIUM CHLORIDE 100 ML IVPB SCH (10:25)
--- NOTE | 2016-09-16 11:04 | PN ---
Teaching Attending Note Name of Resident: Aleksandr Ha ATTENDING PHYSICIAN STATEMENT I saw and evaluated the patient. I reviewed the resident's note and discussed the case with the resident. I agree with the resident's findings and plan as documented. SUBJECTIVE: still some cramps resting comfortably OBJECTIVE: Vital Signs Period Temp Pulse Resp BP Sys/Kirkpatrick Pulse Ox Last 24 Hr 97.8 F-98.2 F 70-88 14-24 105-138/61-84 96 +NGT cor-rrr llungs clear abd soft, +drain +ostomy ext no edema CBC, BMP 09/16/16 05:10 09/16/16 05:10 Microbiology 09/15/16 05:50 Blood - Peripheral Venous Blood Culture - Preliminary NO GROWTH OBTAINED AFTER 24 HOURS, INCUBATION TO CONTINUE FOR 4 DAYS. 09/15/16 05:45 Blood - Peripheral Venous Blood Culture - Preliminary NO GROWTH OBTAINED AFTER 24 HOURS, INCUBATION TO CONTINUE FOR 4 DAYS. 09/14/16 14:40 Peritoneal Fluid Gram Stain - Final 09/14/16 11:18 Urine - Urine - Catheterized Urine Culture - Final NO GROWTH OBTAINED ASSESSMENT AND PLAN: POD #2 s/p ruptured viscus- sigmoid colon encourage OOB, incentive spirometry continue ceftriaxone and flagyl f/u operative cultures
--- NOTE | 2016-09-16 11:30 | PN ---
Progress Note, Physician Chief Complaint: Ms Aguilar mainly complains of sore throat and mejia in her abdomen. No flatus or bowel movement. No chest pain or shortness of breath - Current Medication List Current Medications: Active Medications Acetaminophen (Tylenol -) 650 mg PO Q4H PRN PRN Reason: FEVER OR PAIN Albuterol Sulfate (Ventolin Hfa Inhaler -) 1 puff IH Q4H PRN PRN Reason: ASTHMA Atorvastatin Calcium (Lipitor -) 10 mg PO HS [facility] Last Admin: 09/15/16 22:16 Dose: 10 mg Ceftriaxone Sodium (Rocephin 2gm Ivpb (Pre-Docked)) 2 gm IVPB DAILY CHRIS PRN Reason: Protocol Last Admin: 09/16/16 10:12 Dose: 2 gm Chlorhexidine Gluconate (Hibiclens For Decolonization -) 1 applic TP [facility] Last Admin: 09/15/16 22:17 Dose: 1 applic Enoxaparin Sodium (Lovenox -) 40 mg SQ DAILY [facility] Last Admin: 09/16/16 10:12 Dose: 40 mg Folic Acid (Folic Acid -) 1 mg PO DAILY [facility] Last Admin: 09/16/16 10:12 Dose: 1 mg Hydromorphone HCl (Dilaudid Injection -) 0.5 mg IVPUSH [id number] PRN PRN Reason: PAIN Stop: 09/17/16 16:43 Hydromorphone HCl (Dilaudid Cash Grain Grower -) 10 mg MAINTENANCE ENGINEER OIL FIELD MAINTENANCE ENGINEER OIL FIELD CHRIS PRN Reason: Protocol Stop: 09/21/16 17:43 Last Admin: 09/16/16 06:19 Dose: 10 mg Pantoprazole Sodium 40 mg/ (Sodium Chloride) 100 mls @ 200 mls/hr IVPB DAILY [facility] Last Admin: 09/16/16 10:25 Dose: 200 mls/hr Metronidazole (Flagyl 500mg Premixed Ivpb -) 100 mls @ 100 mls/hr IVPB Q8H-IV CHRIS Last Admin: 09/16/16 10:12 Dose: 100 mls/hr Dextrose/Sodium Chloride (D5-1/2ns -) 1,000 mls @ 100 mls/hr IV ASDIR [facility] Last Admin: 09/16/16 01:07 Dose: 100 mls/hr Ibuprofen (Caldolor Injection -) 800 mg IVPB Q6H PRN PRN Reason: PAIN Montelukast Sodium (Singulair -) 10 mg PO HS CHRIS Last Admin: 09/15/16 22:16 Dose: 10 mg Mupirocin (Bactroban Ointment (For Decolonization) -) 1 applic NS BID [facility] Stop: 09/19/16 21:59 Last Admin: 09/16/16 10:12 Dose: 1 applic Ondansetron HCl (Zofran Injection) 4 mg IVPB Q6H PRN PRN Reason: NAUSEA - Objective Vital Signs: Vital Signs Temperature 98 F 09/16/16 06:00 Pulse Rate 88 09/16/16 07:00 Respiratory Rate 18 09/16/16 07:00 Blood Pressure 134/84 09/16/16 07:00 O2 Sat by Pulse Oximetry (%) 96 09/15/16 22:00 Constitutional: Yes: No Distress, Calm, Obese Cardiovascular: Yes: Regular Rate and Rhythm. No: Gallop, Murmur, Rub Respiratory: Yes: Regular, CTA Bilaterally. No: Rales, Rhonchi, Wheezes Gastrointestinal: Yes: Hypoactive Bowel Sounds, Tenderness. No: Distention Extremities: Yes: WNL Edema: No Labs: CBC, BMP 09/16/16 05:10 09/16/16 05:10 Problem List - Problems (1) Perforation bowel Code(s): K63.1 - PERFORATION OF INTESTINE (NONTRAUMATIC) (2) Sepsis Code(s): A41.9 - SEPSIS, UNSPECIFIED ORGANISM (3) Hypertension Code(s): I10 - ESSENTIAL (PRIMARY) HYPERTENSION (4) HLD (hyperlipidemia) Code(s): E78.5 - HYPERLIPIDEMIA, UNSPECIFIED Assessment/Plan (1) Perforation bowel Assessment/Plan: -s/p laparotomy -surgery following -continue NGT and npo Code(s): K63.1 - PERFORATION OF INTESTINE (NONTRAUMATIC) (2) Sepsis Assessment/Plan: -secondary to perforated bowel -ID following -continue rocephin and flagyl -leukocytosis stable Code(s): A41.9 - SEPSIS, UNSPECIFIED ORGANISM (3) Hypertension Assessment/Plan: -slightly hypertensive today -if continues to elevate, add IV medication until taking po Code(s): I10 - ESSENTIAL (PRIMARY) HYPERTENSION (4) HLD (hyperlipidemia) Assessment/Plan: -continue statin when taking po Code(s): E78.5 - HYPERLIPIDEMIA, UNSPECIFIED
--- NOTE | 2016-09-16 12:51 | PN ---
Teaching Attending Note Name of Resident: Rustam Mendiola ATTENDING PHYSICIAN STATEMENT I saw and evaluated the patient. I reviewed the resident's note and discussed the case with the resident. I agree with the resident's findings and plan as documented. SUBJECTIVE: Pt seen and examined in the ICU. Pain controlled, no nausea or vomiting. No fevers or chills. Was OOB to chair this AM. OBJECTIVE: Last Vital Signs Temp Pulse Resp BP Pulse Ox 98 F 88 18 134/84 96 09/16/16 06:00 09/16/16 07:00 09/16/16 07:00 09/16/16 07:00 09/15/16 22:00 Intake & Output 09/13/16 09/14/16 09/15/16 09/16/16 23:59 23:59 23:59 23:59 Intake Total 2800 3750 1300 Output Total 1045 1090 360 Balance 1755 2660 940 Weight 190 lb 6 oz 197 lb 4 oz 198 lb 5 oz Gen: NAD at rest Heart: RRR Lung: decreased breath sounds at the bases Abd: soft, appropriately tender, hypoactive bowel sounds, +ostomy pink, +CHARLES drain with slightly purulent serosanguinous drainage Ext: no edema CBC, BMP 09/16/16 05:10 09/16/16 05:10 Active Medications Acetaminophen (Tylenol -) 650 mg PO Q4H PRN PRN Reason: FEVER OR PAIN Albuterol Sulfate (Ventolin Hfa Inhaler -) 1 puff IH Q4H PRN PRN Reason: ASTHMA Atorvastatin Calcium (Lipitor -) 10 mg PO HS [facility] Last Admin: 09/15/16 22:16 Dose: 10 mg Ceftriaxone Sodium (Rocephin 2gm Ivpb (Pre-Docked)) 2 gm IVPB DAILY [facility] PRN Reason: Protocol Last Admin: 09/16/16 10:12 Dose: 2 gm Chlorhexidine Gluconate (Hibiclens For Decolonization -) 1 applic TP HS [facility] Last Admin: 09/15/16 22:17 Dose: 1 applic Enoxaparin Sodium (Lovenox -) 40 mg SQ DAILY [facility] Last Admin: 09/16/16 10:12 Dose: 40 mg Folic Acid (Folic Acid -) 1 mg PO DAILY [facility] Last Admin: 09/16/16 10:12 Dose: 1 mg Hydromorphone HCl (Dilaudid Injection -) 0.5 mg IVPUSH [id number] PRN PRN Reason: PAIN Stop: 09/17/16 16:43 Hydromorphone HCl (Dilaudid Grocery Supervisor -) 10 mg ELEMENTARY SPECIAL EDUCATION TEACHER ELEMENTARY SPECIAL EDUCATION TEACHER CHRIS PRN Reason: Protocol Stop: 09/21/16 17:43 Last Admin: 09/16/16 06:19 Dose: 10 mg Pantoprazole Sodium 40 mg/ (Sodium Chloride) 100 mls @ 200 mls/hr IVPB DAILY [facility] Last Admin: 09/16/16 10:25 Dose: 200 mls/hr Metronidazole (Flagyl 500mg Premixed Ivpb -) 100 mls @ 100 mls/hr IVPB Q8H-IV CHRIS Last Admin: 09/16/16 10:12 Dose: 100 mls/hr Dextrose/Sodium Chloride (D5-1/2ns -) 1,000 mls @ 100 mls/hr IV ASDIR [facility] Last Admin: 09/16/16 01:07 Dose: 100 mls/hr Ibuprofen (Caldolor Injection -) 800 mg IVPB Q6H PRN PRN Reason: PAIN Montelukast Sodium (Singulair -) 10 mg PO HS [facility] Last Admin: 09/15/16 22:16 Dose: 10 mg Mupirocin (Bactroban Ointment (For Decolonization) -) 1 applic NS BID [facility] Stop: 09/19/16 21:59 Last Admin: 09/16/16 10:12 Dose: 1 applic Ondansetron HCl (Zofran Injection) 4 mg IVPB Q6H PRN PRN Reason: NAUSEA ASSESSMENT AND PLAN: Perforated Diverticulitis s/p Exploratory Laparotomy/Sigmoid Colectomy/Colostomy 09/14 Sepsis HTN Hyperlipidemia Asthma - continue antibiotics - IVF - NPO - monitor lytes - pain control - incentive spirometry - inhaled bronchodilators - OOB to chair - await return of bowel function - DVT prophylaxis - can monitor on floor if ok with surgery
--- NOTE | 2016-09-16 13:26 | PN ---
Physical Exam: SUBJECTIVE: Patient seen and examined. She was found OOB to chair in NAD. Patient has no new complaints and states that pain is controlled with PITCH FILLER. Patient denies SOB, chest pain, leg swelling. Explained the function and importance of incentive spirometry. OBJECTIVE: Vital Signs Temperature 98 F 09/16/16 06:00 Pulse Rate 88 09/16/16 07:00 Respiratory Rate 18 09/16/16 07:00 Blood Pressure 134/84 09/16/16 07:00 O2 Sat by Pulse Oximetry (%) 96 09/15/16 22:00 GENERAL: The patient is awake, alert, and fully oriented, in no acute distress. HEAD: Normal with no signs of trauma. EYES: extraocular movements intact, sclera anicteric, conjunctiva clear. No ptosis. NECK: Trachea midline, full range of motion, supple. LUNGS: Breath sounds equal, clear to auscultation bilaterally, no wheezes, no crackles, no accessory muscle use. HEART: Regular rate and rhythm, S1, S2 without murmur, rub or gallop. ABDOMEN: Soft, tender to palpation, nondistended, normoactive bowel sounds, no guarding. Surgical bandages in place. Ostomy site appears well perfused and is outputting serosanguinous . EXTREMITIES: 2+ pulses, warm, well-perfused, no edema. NEUROLOGICAL: Cranial nerves II through X grossly intact. Normal speech, gait not observed. PSYCH: Normal mood, normal affect. SKIN: Warm, dry, normal turgor, no rashes or lesions noted Laboratory Results - last 24 hr 09/15/16 09/16/16 09/16/16 23:31 05:10 05:10 WBC 14.6 H RBC 3.24 L Hgb 9.7 L Hct 29.5 L MCV 90.9 MCH 30.0 MCHC 33.0 RDW 13.4 Plt Count 291 MPV 9.5 Neutrophils % 88.6 H Lymphocytes % 4.7 L D Monocytes % 6.6 Eosinophils % 0.0 Basophils % 0.1 Sodium 142 Potassium 4.1 Chloride 108 H Carbon Dioxide 28 Anion Gap 6 L BUN 15 Creatinine 0.6 POC Glucometer 150.39311 Random Glucose 123 H Calcium 8.5 Phosphorus 2.2 L D Magnesium 2.1 09/16/16 09/16/16 05:39 12:23 WBC RBC Hgb Hct MCV MCH MCHC RDW Plt Count MPV Neutrophils % Lymphocytes % Monocytes % Eosinophils % Basophils % Sodium Potassium Chloride Carbon Dioxide Anion Gap BUN Creatinine POC Glucometer 144.64716 139.41818 Random Glucose Calcium Phosphorus Magnesium Active Medications Generic Name Dose Route Start Last Admin Trade Name Freq PRN Reason Stop Dose Admin Acetaminophen 650 mg 09/14/16 14:07 Tylenol - PO Q4H PRN FEVER OR PAIN Albuterol Sulfate 1 puff 09/14/16 14:45 Ventolin Hfa Inhaler - IH Q4H PRN ASTHMA Atorvastatin Calcium 10 mg 09/15/16 22:00 09/15/16 22:16 Lipitor - PO 10 mg HS CHRIS Administration Ceftriaxone Sodium 2 gm 09/15/16 10:00 09/16/16 10:12 Rocephin 2gm Ivpb (Pre-Docked) IVPB 2 gm DAILY CHRIS Administration Protocol Chlorhexidine Gluconate 1 applic 09/14/16 22:00 09/15/16 22:17 Hibiclens For Decolonization - TP 1 applic HS CHRIS Administration Enoxaparin Sodium 40 mg 09/15/16 10:00 09/16/16 10:12 Lovenox - SQ 40 mg DAILY CHRIS Administration Folic Acid 1 mg 09/15/16 10:00 09/16/16 10:12 Folic Acid - PO 1 mg DAILY CHRIS Administration Hydromorphone HCl 0.5 mg 09/14/16 16:42 Dilaudid Injection - IVPUSH 09/17/16 16:43 [id number] PRN PAIN Hydromorphone HCl 10 mg 09/14/16 17:45 09/16/16 06:19 Dilaudid Gear Hobber Set Up Operator - PITCH FILLER 09/21/16 17:43 10 mg PITCH FILLER CHRIS Administration Protocol Pantoprazole Sodium 40 mg/ 100 mls @ 200 mls/hr 09/15/16 10:00 09/16/16 10:25 Sodium Chloride IVPB 200 mls/hr DAILY CHRIS Administration Metronidazole 100 mls @ 100 mls/hr 09/15/16 10:00 09/16/16 10:12 Flagyl 500mg Premixed Ivpb - IVPB 100 mls/hr Q8H-IV CHRIS Administration Dextrose/Sodium Chloride 1,000 mls @ 100 mls/hr 09/15/16 13:15 09/16/16 01:07 D5-1/2ns - IV 100 mls/hr ASDIR CHRIS Administration Ibuprofen 800 mg 09/14/16 14:12 Caldolor Injection - IVPB Q6H PRN PAIN Montelukast Sodium 10 mg 09/15/16 22:00 09/15/16 22:16 Singulair - PO 10 mg HS CHRIS Administration Mupirocin 1 applic 09/14/16 22:00 09/16/16 10:12 Bactroban Ointment (For Decolonization) - NS 09/19/16 21:59 1 applic BID CHRIS Administration Ondansetron HCl 4 mg 09/14/16 14:07 Zofran Injection IVPB Q6H PRN NAUSEA ASSESSMENT/PLAN: 66 yo F w/ PMH diverticulosis & chronic constipation presents to the ED with worsening abdominal pain. Patient was found to have a bowel perforation and underwent a sigmoidectomy. Patient was transferred to ICU for further monitoring. Neuro -A&Ox3, found OOB to chair -PT consult Pulmonary -patient has history of asthma -no shortness of breath currently -continue with bronchodilators Abdominal -s/p signoidectomy 2/2 diverticulosis with bowel perforation -pain remains controlled today -ostomy well perfused and draining serosanguinous fluid -Peritoneal fluid gram stain shows gram negative rods; f/u final culture -medications as per ID FEN -D5 1/2 NS at 100 -will monitor lytes -NPO Prophylaxsis -Pantoprazole 40 mg IV -SCDs for DVT PPTX Dispo -patient is stable for transfer to floor Problem List - Problems (1) Constipation Code(s): K59.00 - CONSTIPATION, UNSPECIFIED Qualifiers: Constipation type: unspecified constipation type Qualified Code(s): K59.00 - Constipation, unspecified (2) Diverticulitis Code(s): K57.92 - DVTRCLI OF INTEST, PART UNSP, W/O PERF OR ABSCESS W/O BLEED Qualifiers: Diverticulitis site: unspecified part of intestinal tract Diverticulitis bleeding: without bleeding Diverticulitis complication: unspecified complication status Qualified Code(s): K57.92 - Diverticulitis of intestine, part unspecified, without perforation or abscess without bleeding (3) HLD (hyperlipidemia) Code(s): E78.5 - HYPERLIPIDEMIA, UNSPECIFIED (4) Hypertension Code(s): I10 - ESSENTIAL (PRIMARY) HYPERTENSION (5) Perforation of sigmoid colon due to diverticulitis Code(s): K57.20 - DVTRCLI OF LG INT W PERFORATION AND ABSCESS W/O BLEEDING (6) Sepsis Code(s): A41.9 - SEPSIS, UNSPECIFIED ORGANISM Visit type - Emergency Visit Emergency Visit: Yes ED Registration Date: 09/14/16 Care time: The patient presented to the Emergency Department on the above date and was hospitalized for further evaluation of their emergent condition. - New Patient This patient is new to me today: No - Critical Care Critical Care patient: Yes Total Critical Care Time (in minutes): 35 Critical Care Statement: The care of this patient involved high complexity decision making to prevent further life threatening deterioration of the patient 's condition and/or to evalute & treat vital organ system(s) failure or risk of failure.
--- NOTE | 2016-09-16 13:44 | PATH ---
Surgical Pathology Report Patient Name: LUCIEN HUNTLEY [facility]. Rec. #: [id number] /Age/Gender: 1950 (Age: 66) / F Account: [id number] Location: EMERGENCY ROOM Taken: 09/14/2016 Received: 09/15/2016 Reported: 09/16/2016 Physicians: Pablo Galarza M.D. Specimen(s) Received PERFORATED SIGMOID COLON Clinical History Perforated colon Perforated sigmoid colon, abdominal abscess, peritonitis Final Diagnosis COLON, SIGMOID, COLECTOMY: SEGMENT OF COLON WITH SEVERE DIVERTICULOSIS AND DIVERTICULITIS WITH ASSOCIATED PERFORATION, MARKED ACUTE AND CHRONIC INFLAMMATION WITH MURAL ABSCESS AND ASSOCIATED MARKED ACUTE SEROSITIS. NO MALIGNANCY IDENTIFIED. SURGICAL RESECTION MARGINS APPEAR VIABLE. Electronically Signed Surya Gilmore M.D. Gross Description Received in formalin, labeled "perforated sigmoid colon" is a 15 cm in length and 4.5 cm in diameter previously opened segment of colon with a stapled end designated as proximal by surgeon. The serosal surface is a mejia-red, congested with focal areas of urrutia exudate and with likely focus of perforation. The mucosa is mejia-red with preserved folds and multiple diverticula. The sectioning shows multiple diverticula filled with fecal material. One of the diverticula is connected with the area of perforation. Financial Specialist sections are submitted as follows: Cassette #1: proximal resection margin, cassette #2: distal resection margin, cassettes #3 and 4 area of perforation, cassettes #5 and 6 diverticula with possible mural abscess, cassette #7 additional diverticulum, cassette #8: surrounding mucosa. AF/09/15/2016 final/09/15/2016
[2016-09-16] MEDS: BENZOCAINE/MENTH/CETYLPYRD CL 1 EACH LOZENGE MM PRN (15:30)
[2016-09-16] MEDS ORDERED: ACETAMINOPHEN 1000 MG/100 ML VIAL (NON FORMULARY) IVPB PRN (15:59)
--- NOTE | 2016-09-16 16:05 | PN ---
Progress Note (short form) - Note Progress Note: Post op day#2.P 79,BP 144/79 and Spo2 94% on O2 $l NC.Patient stable and c/o pain score of 4-5/10 on Dilaudid WORKFORCE MANAGEMENT CONSULTANT.Will continue WORKFORCE MANAGEMENT CONSULTANT today and put patient on Ofirmev 1Gm IVPB.Will f/u.
[2016-09-16] MEDS ORDERED: WATER IVPB ONE (18:21)
[2016-09-16] MEDS ORDERED: SODIUM PHOSPHATE IVPB ONE (18:21)
[2016-09-16] MEDS ORDERED: DEXTROSE IVPB ONE (18:21)
[2016-09-16] MEDS ORDERED: SODIUM PHOSPHATE - 30 MM in DEXTROSE 5%-WATER - 250 ML IVPB ONE (18:28)
[2016-09-16] MEDS ORDERED: SODIUM PHOSPHATE - 27 MM in DEXTROSE 5%-WATER - 250 ML IVPB ONE (19:05)
--- NOTE | 2016-09-16 19:09 | PN ---
Progress Note (short form) - Note Progress Note: surgery pt seen and examined. feels ok. wants ngt out. no nausea. oob to chair afebrile abd- soft, moderate distension, dressing c/d/i, colostomy p/p/p, maxi serous, u/o 830, ngt 100 Laboratory Tests 09/16/16 09/16/16 05:10 05:10 WBC 14.6 H Phosphorus 2.2 L D A/P 1) Pod#2- cont npo, d/c ngt, cont ivf, d/c seaman, cont maxi 2) perforated sigmoid colon- cont abx, cont maxi, follow path, wbc stable 3) open wound- will change packing on Thu 4) prophylaxis- lovenox, protonix, oob, spirometer 5) hypophosphatemia- will replace
[2016-09-16] MEDS ORDERED: ONDANSETRON 4 MG/2 ML VIAL IVPB PRN (19:45)
[2016-09-16] MEDS ORDERED: HYDROmorphone HCL CARPU-JECT 1 MG/1 ML DISP.SYRIN IVPUSH PRN (19:45)
[2016-09-16] MEDS ORDERED: ALBUTEROL SO4 6.7 GM HFA INHALER IH PRN (19:45)
[2016-09-16] MEDS: PIPERACILLIN/TAZOB 3.375 GM 3.375 GM in DEXTROSE 5%-WATER - 50 ML IVPB SCH ×3 (20:51→20:53)
[2016-09-16] MEDS ORDERED: MUPIROCIN 2% TOPICAL OINTMENT FOR DECOLONIZATION NS SCH (22:00)
[2016-09-16] MEDS ORDERED: CHLORHEXIDINE GLUCONATE 4% CLEANSER FOR DECOLONIZATION TP SCH (22:00)
[2016-09-16] MEDS: ATORVASTATIN CA 10 MG TABLET (FP) PO SCH (22:02)
[2016-09-16] MEDS: MONTELUKAST NA 10 MG TABLET PO SCH (22:02)
[2016-09-17] MEDS: METRONIDAZOLE 500 MG PREMIXED 100 ML IVPB SCH ×3 (02:01→18:21)
[2016-09-17] MEDS: ACETAMINOPHEN 325 MG TABLET (FP) PO PRN ×2 (03:02→12:19)
[2016-09-17 07:18] LABS: BASOPHIL 0.2 % (0-2.0); EOSINOPHIL 0.3 % (0-4.5); MCH 30.8 pg (25.7-33.7); MCHC 33.8 g/dl (32.0-36.0); MEAN PLT VOLUME 8.9 fl (7.5-11.1); NEUTROPHILS 81.9 % (42.8-82.8); PLATELET COUNT 284 K/MM3 (134-434); RDW 13.7 % (11.6-15.6)
--- NOTE | 2016-09-17 07:39 | PN ---
Progress Note, Physician Chief Complaint: ID Ceftriaxone and metronidazole day 3 post op Surgery note reviewed AFebrile - Current Medication List Current Medications: Active Medications Acetaminophen (Ofirmev Injection -) 1,000 mg IVPB Q6H PRN PRN Reason: FEVER OR PAIN Stop: 09/17/16 10:00 Acetaminophen (Tylenol -) 650 mg PO Q4H PRN PRN Reason: FEVER OR PAIN Last Admin: 09/17/16 03:02 Dose: 650 mg Albuterol Sulfate (Ventolin Hfa Inhaler -) 1 puff IH Q4H PRN PRN Reason: ASTHMA Atorvastatin Calcium (Lipitor -) 10 mg PO HS [facility] Last Admin: 09/16/16 22:02 Dose: 10 mg Benzocaine/Menthol (Cepacol Lozenge -) 1 each MM PRN PRN PRN Reason: SORE THROAT Last Admin: 09/16/16 15:30 Dose: 1 each Chlorhexidine Gluconate (Hibiclens For Decolonization -) 1 applic TP [facility] Last Admin: 09/16/16 21:59 Dose: Not Given Enoxaparin Sodium (Lovenox -) 40 mg SQ DAILY [facility] Folic Acid (Folic Acid -) 1 mg PO DAILY [facility] Hydromorphone HCl (Dilaudid Manual Control Auger Press Operator -) 10 mg DOUGH MOLDER HAND DOUGH MOLDER HAND CHRIS PRN Reason: Protocol Stop: 09/21/16 17:43 Last Admin: 09/16/16 20:54 Dose: Not Given Dextrose/Sodium Chloride (D5-1/2ns -) 1,000 mls @ 100 mls/hr IV ASDIR [facility] Last Admin: 09/16/16 20:50 Dose: Not Given Metronidazole (Flagyl 500mg Premixed Ivpb -) 100 mls @ 100 mls/hr IVPB Q8H-IV [facility] Last Admin: 09/17/16 02:01 Dose: 100 mls/hr Ceftriaxone Sodium 2 gm/ (Dextrose) 100 mls @ 200 mls/hr IVPB DAILY [facility] Pantoprazole Sodium 40 mg/ (Sodium Chloride) 100 mls @ 200 mls/hr IVPB DAILY [facility] Ibuprofen (Caldolor Injection -) 800 mg IVPB Q6H PRN PRN Reason: PAIN Montelukast Sodium (Singulair -) 10 mg PO [facility] Last Admin: 09/16/16 22:02 Dose: 10 mg Mupirocin (Bactroban Ointment (For Decolonization) -) 1 applic NS BID [facility]IS Stop: 09/19/16 21:59 Last Admin: 09/16/16 21:59 Dose: Not Given Ondansetron HCl (Zofran Injection) 4 mg IVPB Q6H PRN PRN Reason: NAUSEA - Objective Vital Signs: Vital Signs Temperature 98.1 F 09/17/16 06:00 Pulse Rate 69 09/17/16 06:00 Respiratory Rate 20 09/17/16 06:00 Blood Pressure 123/79 09/17/16 06:00 O2 Sat by Pulse Oximetry (%) 96 09/16/16 21:00 Constitutional: Yes: Well Nourished, No Distress HENT: Yes: WNL, Atraumatic Neck: Yes: WNL, Supple Respiratory: Yes: WNL, Regular, CTA Bilaterally Gastrointestinal: Yes: WNL, Normal Bowel Sounds, Soft, Other (colostomy CHARLES drain ) Labs: CBC, BMP 09/17/16 06:00 Problem List - Problems (1) Diverticulitis Code(s): K57.92 - DVTRCLI OF INTEST, PART UNSP, W/O PERF OR ABSCESS W/O BLEED Qualifiers: Diverticulitis site: unspecified part of intestinal tract Diverticulitis bleeding: without bleeding Diverticulitis complication: unspecified complication status Qualified Code(s): K57.92 - Diverticulitis of intestine, part unspecified, without perforation or abscess without bleeding (2) Perforation bowel Code(s): K63.1 - PERFORATION OF INTESTINE (NONTRAUMATIC) Assessment/Plan Microbiology 09/14/16 14:40 Peritoneal Fluid Gram Stain - Final 09/15/16 05:50 Blood - Peripheral Venous Blood Culture - Preliminary NO GROWTH OBTAINED AFTER 48 HOURS, INCUBATION TO CONTINUE FOR 3 DAYS. 09/15/16 05:45 Blood - Peripheral Venous Blood Culture - Preliminary NO GROWTH OBTAINED AFTER 48 HOURS, INCUBATION TO CONTINUE FOR 3 DAYS. 09/14/16 14:40 Peritoneal Fluid Body Fluid Culture - Preliminary Pending Organism Gram Negative [facility] Tests 09/14/16 09/16/16 09/16/16 09:00 05:10 05:10 WBC 19.0 H 14.6 H Hgb Hct Plt Count BUN 15 Creatinine 0.6 09/17/16 06:00 WBC 10.0 D Hgb 9.5 L Hct 28.1 L Plt Count 284 BUN Creatinine Assesment Perforated diverticulitis Colostomy Peritoneal culture mixed culture pending final c/s Plan Continue antibiotics as ordered Surgical incision care per Dr Michell Macias MD
[2016-09-17 07:46] LABS: ANION GAP 7 (8-16); CO2 28 mmol/L (21-32); CREATININE 0.5 mg/dL (0.55-1.02); GLUCOSE,RANDOM 103 mg/dL (74-106); MAGNESIUM 1.9 mg/dL (1.8-2.4); PHOSPHOROUS 3.2 mg/dL (2.5-4.9)
--- NOTE | 2016-09-17 09:19 | PN ---
Progress Note (short form) - Note Progress Note: Anesthesia/pain management follow up 66 y/o F s/p GA for sigmoid resection POD#3, transferred out of ICU yesterday, vss, aaox3, on physician practice coordinator, pain fairly well controlled with physician practice coordinator Will continue VESSEL ENGINEER today. Discussed with nurse and patient, encouraged to get out of bed to chair and do incentive spirometry.
[2016-09-17] MEDS ORDERED: SODIUM CHLORIDE 100 ML IVPB ONE (09:49)
[2016-09-17] MEDS ORDERED: PANTOPRAZOLE SODIUM 40 MG VIAL ONE (09:49)
[2016-09-17] MEDS ORDERED: DEXTROSE 5%-WATER 100 ML IVPB ONE (09:50)
[2016-09-17] MEDS: ENOXAPARIN NA (PORCINE) 40 MG/0.4 ML DISP.SYRIN SQ SCH (09:52)
[2016-09-17] MEDS: CEFTRIAXONE 2 GM in DEXTROSE 5%-WATER 100 ML IVPB SCH (09:52)
[2016-09-17] MEDS: PANTOPRAZOLE SODIUM 40 MG in SODIUM CHLORIDE 100 ML IVPB SCH (09:52)
[2016-09-17] MEDS: FOLIC ACID 1 MG TABLET (FP) PO SCH (09:53)
[2016-09-17] MEDS ORDERED: PANTOPRAZOLE SODIUM 40 MG in SODIUM CHLORIDE 100 ML IVPB SCH (10:00)
[2016-09-17] MEDS ORDERED: cefTRIAXone 2 GM/100 ML BAG (PRE-DOCKED) IVPB SCH (10:00)
[2016-09-17] MEDS ORDERED: PANTOPRAZOLE SODIUM 40 MG/100 ML PRE-DOCKED IVPB SCH (10:00)
--- NOTE | 2016-09-17 11:09 | PN ---
Progress Note, Physician Chief Complaint: Ms Aguilar complains of pain in her abdomen when coughing. No cp, sob, n/v. - Current Medication List Current Medications: Active Medications Acetaminophen (Tylenol -) 650 mg PO Q4H PRN PRN Reason: FEVER OR PAIN Last Admin: 09/17/16 03:02 Dose: 650 mg Albuterol Sulfate (Ventolin Hfa Inhaler -) 1 puff IH Q4H PRN PRN Reason: ASTHMA Atorvastatin Calcium (Lipitor -) 10 mg PO HS [facility] Last Admin: 09/16/16 22:02 Dose: 10 mg Benzocaine/Menthol (Cepacol Lozenge -) 1 each MM PRN PRN PRN Reason: SORE THROAT Last Admin: 09/16/16 15:30 Dose: 1 each Enoxaparin Sodium (Lovenox -) 40 mg SQ DAILY [facility] Last Admin: 09/17/16 09:52 Dose: 40 mg Folic Acid (Folic Acid -) 1 mg PO DAILY [facility] Last Admin: 09/17/16 09:53 Dose: 1 mg Hydromorphone HCl (Dilaudid Willow Analyst -) 10 mg PLASMA TABLE OPERATOR PLASMA TABLE OPERATOR CHRIS PRN Reason: Protocol Stop: 09/21/16 17:43 Last Admin: 09/16/16 20:54 Dose: Not Given Dextrose/Sodium Chloride (D5-1/2ns -) 1,000 mls @ 100 mls/hr IV ASDIR [facility] Last Admin: 09/16/16 20:50 Dose: Not Given Metronidazole (Flagyl 500mg Premixed Ivpb -) 100 mls @ 100 mls/hr IVPB Q8H-IV [facility] Last Admin: 09/17/16 09:54 Dose: 100 mls/hr Ceftriaxone Sodium 2 gm/ (Dextrose) 100 mls @ 200 mls/hr IVPB DAILY [facility] Last Admin: 09/17/16 09:52 Dose: 200 mls/hr Pantoprazole Sodium 40 mg/ (Sodium Chloride) 100 mls @ 200 mls/hr IVPB DAILY [facility] Last Admin: 09/17/16 09:52 Dose: 200 mls/hr Ibuprofen (Caldolor Injection -) 800 mg IVPB Q6H PRN PRN Reason: PAIN Montelukast Sodium (Singulair -) 10 mg PO HS [facility] Last Admin: 09/16/16 22:02 Dose: 10 mg Ondansetron HCl (Zofran Injection) 4 mg IVPB Q6H PRN PRN Reason: NAUSEA - Objective Vital Signs: Vital Signs Temperature 98.1 F 09/17/16 06:00 Pulse Rate 69 09/17/16 06:00 Respiratory Rate 20 09/17/16 06:00 Blood Pressure 123/79 09/17/16 06:00 O2 Sat by Pulse Oximetry (%) 96 09/16/16 21:00 Constitutional: Yes: No Distress, Calm, Obese Cardiovascular: Yes: Regular Rate and Rhythm. No: Gallop, Murmur, Rub Respiratory: Yes: Regular, CTA Bilaterally. No: Rales, Rhonchi, Wheezes Gastrointestinal: Yes: Hypoactive Bowel Sounds (no bowel sounds, unchanged), Tenderness (at surgical site), Other (colostomy bag in place) Extremities: Yes: WNL Edema: No Labs: CBC, BMP 09/17/16 06:00 09/17/16 06:00 Problem List - Problems (1) Perforation bowel Code(s): K63.1 - PERFORATION OF INTESTINE (NONTRAUMATIC) (2) Sepsis Code(s): A41.9 - SEPSIS, UNSPECIFIED ORGANISM (3) Hypertension Code(s): I10 - ESSENTIAL (PRIMARY) HYPERTENSION (4) HLD (hyperlipidemia) Code(s): E78.5 - HYPERLIPIDEMIA, UNSPECIFIED Assessment/Plan (1) Perforation bowel Assessment/Plan: -s/p laparotomy -surgery following -NGT removed -ok for ice sips and hard candy per surgical order Code(s): K63.1 - PERFORATION OF INTESTINE (NONTRAUMATIC) (2) Sepsis Assessment/Plan: -secondary to perforated bowel -ID following -continue rocephin and flagyl -culture slightly resulted, e. coli sensitive to rocephin Code(s): A41.9 - SEPSIS, UNSPECIFIED ORGANISM (3) Hypertension Assessment/Plan: -controlled -continue to monitor Code(s): I10 - ESSENTIAL (PRIMARY) HYPERTENSION (4) HLD (hyperlipidemia) Assessment/Plan: -statin restarted Code(s): E78.5 - HYPERLIPIDEMIA, UNSPECIFIED
[2016-09-17] MEDS: DEXTROSE 5%-0.45% SALINE 1,000 ML IV SCH ×2 (11:48→23:07)
--- NOTE | 2016-09-17 11:48 | PN ---
Physical Exam: SUBJECTIVE: Patient seen by me this AM - Gram stain of peritoneal fluid + for E. Coli, strep viridans - afebrile, WBC downtrending (14.6 -> 10.0) - Continues to complain of crampy RLQ abdominal pain, no major change in quality or intensity. Feels fatigued. Denies fever, chills, cough, CP, SOB, rashes, or MATHEW. other updates: - Urine, blood cx's negative OBJECTIVE: Vital Signs Period Temp Pulse Resp BP Sys/Kirkpatrick Pulse Ox Last 24 Hr 98.1 F-98.9 F 69-82 18-20 123-148/74-95 91-96 GENERAL: Awake, alert, and fully oriented, in no acute distress. Lay in bed w/ NG tube. Appears pale. HEAD: Normal with no signs of trauma. EYES: sclera anicteric, conjunctiva clear. No lid lag. EARS, NOSE, THROAT: Ears normal, nares patent, oropharynx clear without exudates. Moist mucous membranes. Significant yellowing of anterior teeth. LUNGS: Breath sounds equal, clear to auscultation bilaterally. No wheezes, and no crackles. No accessory muscle use. HEART: Regular rate and rhythm, normal S1 and S2 without murmur, rub or gallop. ABDOMEN: Prominent midline incision and drainage bag, with no evidence of infection (erythema/induration/calor). Colostomy noted on LLQ. Distended w/ limited tenderness to palpation near surgical site. Drain w/ bright serosanguinous fluid. Negative mckeon's sign. Hypoactive bowel sounds. No guarding, no rebound tenderness, no masses. No hepatomegaly or splenomegaly. UPPER EXTREMITIES: 2+ pulses, warm, well-perfused. No cyanosis. No clubbing. Cap refill <2 seconds. No peripheral edema. LOWER EXTREMITIES: 2+ pulses, warm, well-perfused. No calf tenderness. Trace edema bilaterally. NEUROLOGICAL: Cranial nerves II-XII grossly intact. Normal speech. gait not evaluated. PSYCHIATRIC: Cooperative. Good eye contact. Appropriate mood and affect. SKIN: Warm, dry, normal turgor, no rashes or lesions noted. Laboratory Results - last 24 hr CBC, BMP 09/17/16 06:00 09/17/16 06:00 09/16/16 09/16/16 09/16/16 05:39 12:23 18:27 WBC RBC Hgb Hct MCV MCH MCHC RDW Plt Count MPV Neutrophils % Lymphocytes % Monocytes % Eosinophils % Basophils % Sodium Potassium Chloride Carbon Dioxide Anion Gap BUN Creatinine POC Glucometer 144.65750 139.34833 137.45753 Random Glucose Calcium Phosphorus Magnesium 09/16/16 09/17/16 09/17/16 23:14 06:00 06:00 WBC 10.0 D RBC 3.09 L Hgb 9.5 L Hct 28.1 L MCV 91.0 MCH 30.8 MCHC 33.8 RDW 13.7 Plt Count 284 MPV 8.9 Neutrophils % 81.9 Lymphocytes % 9.3 D Monocytes % 8.3 Eosinophils % 0.3 D Basophils % 0.2 Sodium 140 Potassium 3.5 Chloride 105 Carbon Dioxide 28 Anion Gap 7 L BUN 13 Creatinine 0.5 L POC Glucometer 102 Random Glucose 103 Calcium 8.0 L Phosphorus 3.2 D Magnesium 1.9 09/17/16 06:36 WBC RBC Hgb Hct MCV MCH MCHC RDW Plt Count MPV Neutrophils % Lymphocytes % Monocytes % Eosinophils % Basophils % Sodium Potassium Chloride Carbon Dioxide Anion Gap BUN Creatinine POC Glucometer 110 Random Glucose Calcium Phosphorus Magnesium Microbiology 09/14/16 14:40 Peritoneal Fluid Gram Stain - Final 09/14/16 14:40 Peritoneal Fluid Body Fluid Culture - Preliminary Pending Organism Escherichia Coli 09/15/16 05:50 Blood - Peripheral Venous Blood Culture - Preliminary NO GROWTH OBTAINED AFTER 48 HOURS, INCUBATION TO CONTINUE FOR 3 DAYS. 09/15/16 05:45 Blood - Peripheral Venous Blood Culture - Preliminary NO GROWTH OBTAINED AFTER 48 HOURS, INCUBATION TO CONTINUE FOR 3 DAYS. 09/14/16 11:18 Urine - Urine - Catheterized Urine Culture - Final NO GROWTH OBTAINED Active Medications Generic Name Dose Route Start Last Admin Trade Name Freq PRN Reason Stop Dose Admin Acetaminophen 650 mg 09/16/16 19:45 09/17/16 03:02 Tylenol - PO 650 mg Q4H PRN Administration FEVER OR PAIN Albuterol Sulfate 1 puff 09/16/16 19:45 Ventolin Hfa Inhaler - IH Q4H PRN ASTHMA Atorvastatin Calcium 10 mg 09/16/16 22:00 09/16/16 22:02 Lipitor - PO 10 mg HS [facility] Administration Benzocaine/Menthol 1 each 09/16/16 14:59 09/16/16 15:30 Cepacol Lozenge - MM 1 each PRN PRN Administration SORE THROAT Enoxaparin Sodium 40 mg 09/17/16 10:00 09/17/16 09:52 Lovenox - SQ 40 mg DAILY [facility]RIS Administration Folic Acid 1 mg 09/17/16 10:00 09/17/16 09:53 Folic Acid - PO 1 mg DAILY [facility]RIS Administration Hydromorphone HCl 10 mg 09/16/16 19:45 09/16/16 20:54 Dilaudid Mix Maker - SENIOR PROJECT CONTROLS SPECIALIST 09/21/16 17:43 Not Given SENIOR PROJECT CONTROLS SPECIALIST CHRIS Protocol Dextrose/Sodium Chloride 1,000 mls @ 100 mls/hr 09/16/16 19:45 09/16/16 20:50 D5-1/2ns - IV Not Given ASDIR [facility] Metronidazole 100 mls @ 100 mls/hr 09/17/16 02:00 09/17/16 09:54 Flagyl 500mg Premixed Ivpb - IVPB 100 mls/hr Q8H-IV [facility] Administration Ceftriaxone Sodium 2 gm/ 100 mls @ 200 mls/hr 09/17/16 10:00 09/17/16 09:52 Dextrose IVPB 200 mls/hr DAILY [facility]IS Administration Pantoprazole Sodium 40 mg/ 100 mls @ 200 mls/hr 09/17/16 10:00 09/17/16 09:52 Sodium Chloride IVPB 200 mls/hr DAILY [facility]IS Administration Ibuprofen 800 mg 09/16/16 19:45 Caldolor Injection - IVPB Q6H PRN PAIN Montelukast Sodium 10 mg 09/16/16 22:00 09/16/16 22:02 Singulair - PO 10 mg HS [facility]IS Administration Ondansetron HCl 4 mg 09/16/16 19:45 Zofran Injection IVPB Q6H PRN NAUSEA ASSESSMENT/PLAN: 66 year old woman w/ pmh of diverticulosis, HTN, and obesity who presented to the ED w/ one week of worsening BL abdominal pain, more prominent on R-side. Midline abdominal incision w/o erythema or edema, no rebound tenderness and no fever or hypotension. Urine and Blood cx's negative to date. Plan to continue covering for anaerobic/GN enterics in the setting of resolving peritonitis on current abx, with wound care per surgical team. Pt still w/ no significant clinical change, with continued RLQ cramping. #Peritonitis - Day 3 of 7 day Abx course - Rocephin 2G IV daily - Flagyl 500mg IV Q8H - surgical site care per surgical team - f/u remaining OP cx's - encourage OOB, IS - Trend fever curve, WBC - Daily CBCs - Monitor surgical site for infection/abscess/drainage - Vitals Q8h Aleksandr Ha MD, PGY1 Plan to be discussed w/ attending Dispo: We will continue to follow the patient. Thank you for this consultative opportunity. Problem List - Problems (1) Diverticulitis Code(s): K57.92 - DVTRCLI OF INTEST, PART UNSP, W/O PERF OR ABSCESS W/O BLEED Qualifiers: Diverticulitis site: unspecified part of intestinal tract Diverticulitis bleeding: without bleeding Diverticulitis complication: unspecified complication status Qualified Code(s): K57.92 - Diverticulitis of intestine, part unspecified, without perforation or abscess without bleeding (2) Perforation bowel Code(s): K63.1 - PERFORATION OF INTESTINE (NONTRAUMATIC) Visit type - Emergency Visit Emergency Visit: No - New Patient This patient is new to me today: No - Critical Care Critical Care patient: No
[2016-09-17] MEDS: MONTELUKAST NA 10 MG TABLET PO SCH (23:07)
[2016-09-17] MEDS: ATORVASTATIN CA 10 MG TABLET (FP) PO SCH (23:07)
[2016-09-18] MEDS: METRONIDAZOLE 500 MG PREMIXED 100 ML IVPB SCH ×3 (01:12→17:47)
[2016-09-18] MEDS: HYDROmorphone *PCA* 10MG/50ML DISP.SYRIN PCA SCH (07:15)
--- NOTE | 2016-09-18 07:55 | PN ---
Physical Exam: SUBJECTIVE: Patient seen and examined by me - Afebrile, no WBC count - Complaining of new onset nausea in PM. Endorses fatigue, malaise. Persistent RLQ cramping. No major overnight events - Surgical site care per surgical team Other updates - peritoneal fluid + for e coli, strep viridans and prevotella - blood, urine neg OBJECTIVE: Vital Signs Period Temp Pulse Resp BP Sys/Kirkpatrick Pulse Ox Last 24 Hr 98 F-99.6 F 65-75 18-20 119-150/67-81 91-91 GENERAL: Awake, alert, and fully oriented, anxious complaining of abdominal pain. NG tube removed. HEAD: Normal with no signs of trauma. EYES: sclera anicteric, conjunctiva clear. No lid lag. LUNGS: Breath sounds equal, clear to auscultation bilaterally. No wheezes, and no crackles. No accessory muscle use. HEART: Regular rate and rhythm, normal S1 and S2 without murmur, rub or gallop. ABDOMEN: Prominent midline incision and drainage bag, with no evidence of infection (erythema/induration/calor). Colostomy noted on LLQ. Distended w/ limited tenderness to palpation near surgical site. Drain w/ bright serosanguinous fluid. Negative mckeon's sign. Hypoactive bowel sounds. No guarding, no rebound tenderness, no masses. No hepatomegaly or splenomegaly. UPPER EXTREMITIES: 2+ pulses, warm, well-perfused. No cyanosis. No clubbing. Cap refill <2 seconds. No peripheral edema. LOWER EXTREMITIES: 2+ pulses, warm, well-perfused. No calf tenderness. Trace edema bilaterally. NEUROLOGICAL: Cranial nerves II-XII grossly intact. Normal speech. gait not evaluated. PSYCHIATRIC: Cooperative. Good eye contact. Appropriate mood and affect. SKIN: Warm, dry, normal turgor, no rashes or lesions noted. Laboratory Results - last 24 hr CBC, BMP 09/17/16 06:00 09/17/16 06:00 09/17/16 09/18/16 06:00 05:43 Sodium 140 Potassium 3.5 Chloride 105 Carbon Dioxide 28 Anion Gap 7 L BUN 13 Creatinine 0.5 L POC Glucometer 119 Random Glucose 103 Calcium 8.0 L Phosphorus 3.2 D Magnesium 1.9 Microbiology 09/15/16 05:50 Blood - Peripheral Venous Blood Culture - Preliminary NO GROWTH OBTAINED AFTER 72 HOURS, INCUBATION TO CONTINUE FOR 2 DAYS. 09/15/16 05:45 Blood - Peripheral Venous Blood Culture - Preliminary NO GROWTH OBTAINED AFTER 72 HOURS, INCUBATION TO CONTINUE FOR 2 DAYS. 09/14/16 14:40 Peritoneal Fluid Gram Stain - Final 09/14/16 14:40 Peritoneal Fluid Body Fluid Culture - Final Streptococcus Viridans Escherichia Coli 09/14/16 14:40 Peritoneal Fluid Anaerobic Culture - Final Prevotella Loescheii 09/14/16 11:18 Urine - Urine - Catheterized Urine Culture - Final NO GROWTH OBTAINED Active Medications Generic Name Dose Route Start Last Admin Trade Name Freq PRN Reason Stop Dose Admin Acetaminophen 650 mg 09/16/16 19:45 09/17/16 12:19 Tylenol - PO 650 mg Q4H PRN Administration FEVER OR PAIN Albuterol Sulfate 1 puff 09/16/16 19:45 Ventolin Hfa Inhaler - IH Q4H PRN ASTHMA Atorvastatin Calcium 10 mg 09/16/16 22:00 09/17/16 23:07 Lipitor - PO 10 mg HS [facility] Administration Benzocaine/Menthol 1 each 09/16/16 14:59 09/16/16 15:30 Cepacol Lozenge - MM 1 each PRN PRN Administration SORE THROAT Enoxaparin Sodium 40 mg 09/17/16 10:00 09/17/16 09:52 Lovenox - SQ 40 mg DAILY [facility] Administration Folic Acid 1 mg 09/17/16 10:00 09/17/16 09:53 Folic Acid - PO 1 mg DAILY [facility] Administration Hydromorphone HCl 10 mg 09/16/16 19:45 09/18/16 07:15 Dilaudid Horticulture Professor - CONTRACT OFFICER 09/21/16 17:43 Not Given CONTRACT OFFICER CHRIS Protocol Dextrose/Sodium Chloride 1,000 mls @ 100 mls/hr 09/16/16 19:45 09/17/16 23:07 D5-1/2ns - IV 100 mls/hr ASDIR [facility] Administration Metronidazole 100 mls @ 100 mls/hr 09/17/16 02:00 09/18/16 01:12 Flagyl 500mg Premixed Ivpb - IVPB 100 mls/hr Q8H-IV [facility] Administration Ceftriaxone Sodium 2 gm/ 100 mls @ 200 mls/hr 09/17/16 10:00 09/17/16 09:52 Dextrose IVPB 200 mls/hr DAILY [facility] Administration Pantoprazole Sodium 40 mg/ 100 mls @ 200 mls/hr 09/17/16 10:00 09/17/16 09:52 Sodium Chloride IVPB 200 mls/hr DAILY [facility] Administration Ibuprofen 800 mg 09/16/16 19:45 Caldolor Injection - IVPB Q6H PRN PAIN Montelukast Sodium 10 mg 09/16/16 22:00 09/17/16 23:07 Singulair - PO 10 mg HS [facility] Administration Ondansetron HCl 4 mg 09/16/16 19:45 Zofran Injection IVPB Q6H PRN NAUSEA ASSESSMENT/PLAN: 66 year old woman w/ pmh of diverticulosis, HTN, and obesity who presented to the ED w/ one week of worsening BL abdominal pain, more prominent on R-side. Midline abdominal incision w/o erythema or edema, no rebound tenderness and no fever or hypotension. Peritonial fluid cx's + for e coli, strep viridans, prevotella. Urine and Blood cx's negative to date. Plan to continue covering for anaerobic/GN enterics for 72 hours in the setting of resolving peritonitis on current abx, with wound care per surgical team. Pt now complaining of nausea , possibly secondary to BAH, with continued RLQ cramping. #Peritonitis - Day 4 of 7 day Abx course - Rocephin 2G IV daily - Flagyl 500mg IV Q8H - surgical site care per surgical team - f/u remaining OP cx's - encourage OOB, IS - Trend fever curve, WBC - Daily CBCs - Monitor surgical site for infection/abscess/drainage - Vitals Q8h Aleksandr Ha MD, PGY1 Plan discussed w/ attending, Dr. Macias Dispo: We will continue to follow the patient. Thank you for this consultative opportunity. Problem List - Problems (1) Diverticulitis Code(s): K57.92 - DVTRCLI OF INTEST, PART UNSP, W/O PERF OR ABSCESS W/O BLEED Qualifiers: Diverticulitis site: unspecified part of intestinal tract Diverticulitis bleeding: without bleeding Diverticulitis complication: unspecified complication status Qualified Code(s): K57.92 - Diverticulitis of intestine, part unspecified, without perforation or abscess without bleeding (2) Perforation bowel Code(s): K63.1 - PERFORATION OF INTESTINE (NONTRAUMATIC) Visit type - Emergency Visit Emergency Visit: No - New Patient This patient is new to me today: No - Critical Care Critical Care patient: No
[2016-09-18 08:26] LABS: BASOPHIL 0.3 % (0-2.0); EOSINOPHIL 0.8 % (0-4.5); MCH 30.7 pg (25.7-33.7); MCHC 33.8 g/dl (32.0-36.0); MEAN CELL VOLUME 90.7 fl (80-96); MEAN PLT VOLUME 8.5 fl (7.5-11.1); NEUTROPHILS 79.5 % (42.8-82.8); PLATELET COUNT 353 K/MM3 (134-434); RDW 13.3 % (11.6-15.6); WHITE BLOOD COUNT 10.3 K/mm3 (4.0-10.0)
[2016-09-18 09:03] LABS: ANION GAP 8 (8-16); CO2 29 mmol/L (21-32); GLUCOSE,RANDOM 108 mg/dL (74-106)
[2016-09-18 09:06] LABS: CALCIUM 8.3 mg/dL (8.5-10.1); CREATININE 0.5 mg/dL (0.55-1.02); MAGNESIUM 1.9 mg/dL (1.8-2.4); PHOSPHOROUS 2.6 mg/dL (2.5-4.9)
[2016-09-18] MEDS ORDERED: DEXTROSE 5%-WATER 100 ML IVPB ONE (09:40)
[2016-09-18] MEDS: ENOXAPARIN NA (PORCINE) 40 MG/0.4 ML DISP.SYRIN SQ SCH (09:50)
[2016-09-18] MEDS: CEFTRIAXONE 2 GM in DEXTROSE 5%-WATER 100 ML IVPB SCH (09:50)
[2016-09-18] MEDS: FOLIC ACID 1 MG TABLET (FP) PO SCH (09:50)
[2016-09-18] MEDS ORDERED: PANTOPRAZOLE SODIUM 40 MG VIAL ONE (10:33)
[2016-09-18] MEDS ORDERED: SODIUM CHLORIDE 100 ML IVPB ONE (10:33)
[2016-09-18] MEDS: PANTOPRAZOLE SODIUM 40 MG in SODIUM CHLORIDE 100 ML IVPB SCH (10:35)
--- NOTE | 2016-09-18 12:03 | PN ---
Progress Note (short form) - Note Progress Note: surgery pt seen and examined. on 8w. not oob. refusing to walk. not hungry. some pain. afebrile abd- soft, moderate distension, wound clean, colostomy with small piece of stool , pink and protruding, mf clean, packing changed, maxi serous Laboratory Tests 09/18/16 09/18/16 06:00 06:00 WBC 10.3 H Potassium 3.2 L A/P 1) Pod#4- cont npo, cont ivf, cont maxi 2) perforated sigmoid colon- cont abx, cont maxi, path confirms diverticulitis, wbc stable 3) open wound- deeply irrigate daily with saline and pack with iodoform gauze 4) prophylaxis- lovenox, protonix, oob, spirometer 5) hypophosphatemia- resolved 6) hypokalemia- will replace
--- NOTE | 2016-09-18 13:38 | PN ---
Progress Note, Physician Chief Complaint: ID Day 4 post op Complains of nausea Seen by surgery Ceftriaxone metronidazole - Current Medication List Current Medications: Active Medications Acetaminophen (Tylenol -) 650 mg PO Q4H PRN PRN Reason: FEVER OR PAIN Last Admin: 09/17/16 12:19 Dose: 650 mg Albuterol Sulfate (Ventolin Hfa Inhaler -) 1 puff IH Q4H PRN PRN Reason: ASTHMA Atorvastatin Calcium (Lipitor -) 10 mg PO HS [facility] Last Admin: 09/17/16 23:07 Dose: 10 mg Benzocaine/Menthol (Cepacol Lozenge -) 1 each MM PRN PRN PRN Reason: SORE THROAT Last Admin: 09/16/16 15:30 Dose: 1 each Enoxaparin Sodium (Lovenox -) 40 mg SQ DAILY [facility] Last Admin: 09/18/16 09:50 Dose: 40 mg Folic Acid (Folic Acid -) 1 mg PO DAILY [facility] Last Admin: 09/18/16 09:50 Dose: 1 mg Dextrose/Sodium Chloride (D5-1/2ns -) 1,000 mls @ 100 mls/hr IV ASDIR [facility] Last Admin: 09/17/16 23:07 Dose: 100 mls/hr Metronidazole (Flagyl 500mg Premixed Ivpb -) 100 mls @ 100 mls/hr IVPB Q8H-IV [facility] Last Admin: 09/18/16 12:01 Dose: 100 mls/hr Ceftriaxone Sodium 2 gm/ (Dextrose) 100 mls @ 200 mls/hr IVPB DAILY [facility] Last Admin: 09/18/16 09:50 Dose: 200 mls/hr Pantoprazole Sodium 40 mg/ (Sodium Chloride) 100 mls @ 200 mls/hr IVPB DAILY [facility] Last Admin: 09/18/16 10:35 Dose: 200 mls/hr Ibuprofen (Caldolor Injection -) 800 mg IVPB Q6H PRN PRN Reason: PAIN Montelukast Sodium (Singulair -) 10 mg PO HS [facility] Last Admin: 09/17/16 23:07 Dose: 10 mg Ondansetron HCl (Zofran Injection) 4 mg IVPB Q6H PRN PRN Reason: NAUSEA Last Admin: 09/18/16 13:01 Dose: 4 mg - Objective Vital Signs: Vital Signs Temperature 98.4 F 09/18/16 06:00 Pulse Rate 69 09/18/16 06:00 Respiratory Rate 20 09/18/16 06:00 Blood Pressure 149/67 09/18/16 06:00 O2 Sat by Pulse Oximetry (%) 91 L 09/17/16 21:00 Constitutional: Yes: No Distress Gastrointestinal: Yes: Soft, Other (colostomy drain). No: Tenderness Labs: CBC, BMP 09/18/16 06:00 09/18/16 06:00 Problem List - Problems (1) Diverticulitis Code(s): K57.92 - DVTRCLI OF INTEST, PART UNSP, W/O PERF OR ABSCESS W/O BLEED Qualifiers: Diverticulitis site: unspecified part of intestinal tract Diverticulitis bleeding: without bleeding Diverticulitis complication: unspecified complication status Qualified Code(s): K57.92 - Diverticulitis of intestine, part unspecified, without perforation or abscess without bleeding (2) Perforation bowel Code(s): K63.1 - PERFORATION OF INTESTINE (NONTRAUMATIC) Assessment/Plan Microbiology 09/14/16 14:40 Peritoneal Fluid Gram Stain - Final 09/14/16 14:40 Peritoneal Fluid Anaerobic Culture - Final Streptococcus Viridans Escherichia Coli Prevotella Loescheii 09/14/16 11:18 Urine - Urine - Catheterized Urine Culture - Final NO GROWTH OBTAINED Laboratory Tests 09/18/16 09/18/16 06:00 06:00 WBC 10.3 H Hgb 10.7 D Hct 31.7 L Plt Count 353 D BUN 6 L D Creatinine 0.5 L Assessment Perforated viscus with perforation & peritonitis day 4post op Plan Stop antibiotics 72 hours Kindly recall as needed Colleen ORTA
[2016-09-18] MEDS: IBUPROFEN 800 MG/8 ML IJ IVPB PRN ×2 (14:08→22:55)
--- NOTE | 2016-09-18 16:57 | PN ---
Progress Note, Physician Chief Complaint: Ms Aguilar says she is feeling better. Sitting up in chair today. Says having some nausea but no throwing up. Abdominal pain improved. No flatus or bm. No cp or sob. - Current Medication List Current Medications: Active Medications Acetaminophen (Tylenol -) 650 mg PO Q4H PRN PRN Reason: FEVER OR PAIN Last Admin: 09/17/16 12:19 Dose: 650 mg Albuterol Sulfate (Ventolin Hfa Inhaler -) 1 puff IH Q4H PRN PRN Reason: ASTHMA Atorvastatin Calcium (Lipitor -) 10 mg PO HS [facility] Last Admin: 09/17/16 23:07 Dose: 10 mg Benzocaine/Menthol (Cepacol Lozenge -) 1 each MM PRN PRN PRN Reason: SORE THROAT Last Admin: 09/16/16 15:30 Dose: 1 each Enoxaparin Sodium (Lovenox -) 40 mg SQ DAILY [facility] Last Admin: 09/18/16 09:50 Dose: 40 mg Folic Acid (Folic Acid -) 1 mg PO DAILY [facility] Last Admin: 09/18/16 09:50 Dose: 1 mg Dextrose/Sodium Chloride (D5-1/2ns -) 1,000 mls @ 100 mls/hr IV ASDIR [facility] Last Admin: 09/17/16 23:07 Dose: 100 mls/hr Metronidazole (Flagyl 500mg Premixed Ivpb -) 100 mls @ 100 mls/hr IVPB Q8H-IV [facility] Last Admin: 09/18/16 12:01 Dose: 100 mls/hr Ceftriaxone Sodium 2 gm/ (Dextrose) 100 mls @ 200 mls/hr IVPB DAILY [facility] Last Admin: 09/18/16 09:50 Dose: 200 mls/hr Pantoprazole Sodium 40 mg/ (Sodium Chloride) 100 mls @ 200 mls/hr IVPB DAILY [facility] Last Admin: 09/18/16 10:35 Dose: 200 mls/hr Ibuprofen (Caldolor Injection -) 800 mg IVPB Q6H PRN PRN Reason: PAIN Last Admin: 09/18/16 14:08 Dose: 800 mg Montelukast Sodium (Singulair -) 10 mg PO HS [facility] Last Admin: 09/17/16 23:07 Dose: 10 mg Ondansetron HCl (Zofran Injection) 4 mg IVPB Q6H PRN PRN Reason: NAUSEA Last Admin: 09/18/16 13:01 Dose: 4 mg - Objective Vital Signs: Vital Signs Temperature 98.3 F 09/18/16 15:21 Pulse Rate 78 09/18/16 15:21 Respiratory Rate 18 09/18/16 15:21 Blood Pressure 146/81 09/18/16 15:21 O2 Sat by Pulse Oximetry (%) 91 L 09/17/16 21:00 Constitutional: Yes: Well Nourished, No Distress, Calm Cardiovascular: Yes: Regular Rate and Rhythm. No: Gallop, Murmur, Rub Respiratory: Yes: Regular, CTA Bilaterally. No: Rales, Rhonchi, Wheezes Gastrointestinal: Yes: Soft, Hypoactive Bowel Sounds, Tenderness, Other ( colostomy bag in place). No: Normal Bowel Sounds, Distention Extremities: Yes: WNL Edema: No Labs: CBC, BMP 09/18/16 06:00 09/18/16 06:00 Problem List - Problems (1) Perforation bowel Code(s): K63.1 - PERFORATION OF INTESTINE (NONTRAUMATIC) (2) Sepsis Code(s): A41.9 - SEPSIS, UNSPECIFIED ORGANISM (3) Hypertension Code(s): I10 - ESSENTIAL (PRIMARY) HYPERTENSION (4) HLD (hyperlipidemia) Code(s): E78.5 - HYPERLIPIDEMIA, UNSPECIFIED Assessment/Plan (1) Perforation bowel Assessment/Plan: -s/p laparotomy -surgery following -NGT removed -ok for ice sips and hard candy per surgical order Code(s): K63.1 - PERFORATION OF INTESTINE (NONTRAUMATIC) (2) Sepsis Assessment/Plan: -secondary to perforated bowel -ID following -continue rocephin and flagyl -culture resulted, e. coli sensitive to rocephin Code(s): A41.9 - SEPSIS, UNSPECIFIED ORGANISM (3) Hypertension Assessment/Plan: -controlled -continue to monitor Code(s): I10 - ESSENTIAL (PRIMARY) HYPERTENSION (4) HLD (hyperlipidemia) Assessment/Plan: -continue statin Code(s): E78.5 - HYPERLIPIDEMIA, UNSPECIFIED
[2016-09-18] MEDS: DEXTROSE 5%-0.45% SALINE 1,000 ML IV SCH (19:56)
[2016-09-18] MEDS: ATORVASTATIN CA 10 MG TABLET (FP) PO SCH (22:55)
[2016-09-18] MEDS: MONTELUKAST NA 10 MG TABLET PO SCH (22:55)
[2016-09-18] MEDS: ACETAMINOPHEN 325 MG TABLET (FP) PO PRN (22:56)
[2016-09-19] MEDS: DEXTROSE 5%-0.45% SALINE 1,000 ML IV SCH ×3 (01:31→20:45)
[2016-09-19] MEDS: METRONIDAZOLE 500 MG PREMIXED 100 ML IVPB SCH ×3 (01:31→17:53)
[2016-09-19 08:23] LABS: ANION GAP 8 (8-16); CO2 30 mmol/L (21-32); CREATININE 0.5 mg/dL (0.55-1.02); GLUCOSE,RANDOM 120 mg/dL (74-106); PHOSPHOROUS 2.9 mg/dL (2.5-4.9)
[2016-09-19] MEDS: ACETAMINOPHEN 325 MG TABLET (FP) PO PRN ×2 (08:33→20:41)
[2016-09-19] MEDS: IBUPROFEN 800 MG/8 ML IJ IVPB PRN ×2 (08:38→16:39)
[2016-09-19 09:20] LABS: MCH 30.4 pg (25.7-33.7); MCHC 33.6 g/dl (32.0-36.0); MEAN CELL VOLUME 90.4 fl (80-96); MEAN PLT VOLUME 8.6 fl (7.5-11.1); PLATELET COUNT 407 K/MM3 (134-434); RDW 13.3 % (11.6-15.6); WHITE BLOOD COUNT 9.6 K/mm3 (4.0-10.0)
[2016-09-19] MEDS ORDERED: PANTOPRAZOLE SODIUM 40 MG VIAL ONE (09:53)
[2016-09-19] MEDS ORDERED: SODIUM CHLORIDE 100 ML IVPB ONE (09:53)
[2016-09-19] MEDS ORDERED: DEXTROSE 5%-WATER 100 ML IVPB ONE (09:54)
[2016-09-19] MEDS: CEFTRIAXONE 2 GM in DEXTROSE 5%-WATER 100 ML IVPB SCH (09:57)
[2016-09-19] MEDS: ENOXAPARIN NA (PORCINE) 40 MG/0.4 ML DISP.SYRIN SQ SCH (09:57)
[2016-09-19] MEDS: FOLIC ACID 1 MG TABLET (FP) PO SCH (09:57)
[2016-09-19 10:45] LABS: PLATELET ESTIMATE ADEQUATE (NORMAL)
--- NOTE | 2016-09-19 11:17 | PN ---
Progress Note (short form) - Note Progress Note: surgery pt seen and examined. walked 10 feet yesterday. wants to sleep. says she has too much pain. afebrile abd- soft, moderate distension, wound clean, colostomy with hard stool, pink and protruding, mf clean, maxi serous Laboratory Tests 09/19/16 06:40 WBC 9.6 A/P 1) Pod#5- full liquids, colace, cont ivf, cont maxi 2) perforated sigmoid colon- cont abx per id, cont maxi, path confirms diverticulitis, wbc wnl 3) open wound- deeply irrigate daily with saline and pack with iodoform gauze 4) prophylaxis- lovenox, protonix, oob, spirometer 5) hypophosphatemia- resolved 6) hypokalemia- resolved
[2016-09-19] MEDS: PANTOPRAZOLE SODIUM 40 MG in SODIUM CHLORIDE 100 ML IVPB SCH (11:18)
--- NOTE | 2016-09-19 11:26 | PN ---
Progress Note (short form) - Note Progress Note: Post op da#5.Patient stable.POUCH [employer]ER was Dc Yesterday.Patient has little pain for which she is on medication.No any anesthesia related problem.Patient DC from the anesthesia care.
[2016-09-19] MEDS: KCL 10 MEQ IVPB 100 ML IVPB SCH ×3 (12:05→14:41)
[2016-09-19] MEDS: DOCUSATE SODIUM 100 MG CAPSULE (FP) PO SCH ×2 (14:46→21:19)
--- NOTE | 2016-09-19 15:58 | CON.CARD ---
Consult Consult Specialty:: cardio Referred by:: armida Reason for Consultation:: cp - History of Present Illness Chief Complaint: cp History of Present Illness: 66 yo female admitted with perforated colon sec to diverticulitis, s/p laporotomy, remains with open wound. surgery was 09/14. today she c/o'd cp. we were called. the pain began approx 60-90min ago. began in L shoulder, non-radiating. can't descibe quality. then began noticing pain in mid-sternum region. both were about 8 of 10 in max intensity. no acid/burning feeling assctd. no diaph/sob. no nausea. no pleuritic component. denies every having had this before. receiving IV motrin at present. pain has subsided to approx 5 of 10 intensity. no "tearing" sensation or assctd back pain rpt ecg done today is unchanged vs 09/14--diffuse NSST-Ts with no prior for comparison. 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 No: CVA, Dementia, Seizure Cardio/Vascular: Yes: HTN, Hyperlipdemia. No: AFIB Pulmonary: Yes: Asthma Gastrointestinal: Yes: Diverticulosis Infectious Disease: No: AIDS, HIV - Past Surgical History Past Surgical History: Yes: - Alcohol/Substance Use Hx Alcohol Use: No History of Substance Use: reports: None - Smoking History Smoking history: Never smoked - Social History Usual Living Arrangement: Alone ADL: Independent History of Recent Travel: No Home Medications - Allergies Allergies/Adverse Reactions: Allergies Allergy/AdvReac Type Severity Reaction Status Date / Time No Known Allergies Allergy Verified 09/14/16 08:12 - Home Medications Home Medications: Ambulatory Orders Acetaminophen [Tylenol] 650 mg PO PRN PRN 09/14/16 Albuterol Sulfate Inhaler - [Ventolin Hfa Inhaler -] 1 - 2 inh PO Q4H PRN Aspirin [ASA -] 81 mg PO DAILY 09/14/16 Cholecalciferol (Vitamin D3) [Vitamin D3] 1,000 unit PO BID 09/14/16 Diltiazem Cd [Cardizem Cd -] 240 mg PO DAILY 09/14/16 Folic Acid 1 mg PO DAILY 09/14/16 Losartan Potassium 50 mg PO DAILY 09/14/16 Meclizine HCl 25 mg PO DAILY 09/14/16 Montelukast Sodium [Singulair] 10 mg PO DAILY 09/14/16 Pravastatin Sodium [Pravachol (Nf)] 20 mg PO HS 09/14/16 Family Disease History - Family Disease History Other Family History: states "heart problems" run in her family Review of Systems - Review of Systems Constitutional: denies: Chills, Fever Eyes: denies: Eye Pain HENT: denies: Nasal Congestion Neck: denies: Stiffness Cardiovascular: denies: Palpitations Respiratory: denies: Orthopnea, PND Gastrointestinal: denies: Diarrhea, Rectal Bleeding Genitourinary: denies: Burning, Hematuria Musculoskeletal: denies: Muscle Pain Integumentary: denies: Rash Neurological: denies: Numbness, Seizure, Syncope Endocrine: denies: Excessive Sweating Hematology/Lymphatic: denies: Excessive Bleeding Vital Signs: Vital Signs Temperature 97.9 F 09/19/16 15:24 Pulse Rate 84 09/19/16 15:24 Respiratory Rate 16 09/19/16 15:24 Blood Pressure 130/72 09/19/16 15:24 O2 Sat by Pulse Oximetry (%) 95 09/18/16 21:00 Constitutional: Yes: Well Nourished, No Distress, Obese Eyes: No: Sclera Icterus HENT: No: Nasal Congestion Neck: No: Decreased ROM Respiratory: Yes: CTA Bilaterally. No: Accessory Muscle Use, Rales, Wheezes Gastrointestinal: Yes: Normal Bowel Sounds. No: Distention, Hepatomegaly, Palpable Mass, Tenderness Cardiovascular: Yes: Regular Rate and Rhythm JVD: No Carotid Bruit: No PMI: Non-Displaced Heart Sounds: Yes: S1, S2. No: Gallop Murmur: No: Systolic Murmur, Diastolic Murmur Musculoskeletal: Yes: Other (No kyphosis) Extremities: No: Cold, Cyanosis Edema: No Peripheral Pulses: 2+ Left Carotid, 2+ Right Carotid, 2+ Left Doralis Pedis, 2+ Right Dorsalis Pedis Integumentary: No: Jaundice Neurological: Yes: Alert, Oriented (x3) Psychiatric: No: Agitated - Other Data Labs, Other Data: CBC, BMP 09/19/16 06:40 09/19/16 06:40 Laboratory Tests 09/19/16 09/19/16 06:40 06:40 WBC 9.6 Hgb 11.0 Plt Count 407 Sodium 142 Potassium 3.0 L Carbon Dioxide 30 BUN 7 Creatinine 0.5 L Magnesium 2.0 Imaging - Results Chest X-ray: Image Reviewed Assessment/Plan CXR 09/19: diffuse interstitial pattern, no effusions or vasc redistrib seen, normal heart size/mediastinum shadow. no consolidation or suspected infiltrate-- not signif change vs 09/14 (when accounting for differences in penetration) ECG 09/14: sinus tach (106 bpm), normal axis/intervals. no path q's. diffuse NSST -Ts (no old) ECG 09/19: NSR, no signif change vs prior atypical CP: -no anginal features, subsiding on its own vs sec to NSAID being administered -no clear-cut GI features though this is possible in pt s/p laparotomy with ostomy bag -rec trial SL nitro x 1 now -ecg no acute changes vs 09/14, though diffuse nonsp abnormalities (no prior incl on review of office chart) -serial enzymes ordered -if no clear alternate explanation for her sx's arises, then even if sx's subside on their own, will want to do ischemia eval (stress test) once her abdomen heals and is stable HTN: -bp mildly elevated -not on meds here -will start metoprolol 25mg (also to observe if cp responds) HPL: -cont home atorva as doing diverticulitis with perf colon, s/p surgery: -per surgical team
[2016-09-19] MEDS ORDERED: NITROGLYCERIN SUBLINGUAL 1/150 0.4 MG TAB SL ONE (16:50)
[2016-09-19 17:07] LABS: CPK 33 IU/L (26-192); TROPONIN I < 0.02 ng/ml (0.00-0.05)
[2016-09-19] MEDS: METOPROLOL SUCCINATE 25 MG TAB.SR.24H (FP) PO SCH (17:15)
--- NOTE | 2016-09-19 17:38 | PN ---
Progress Note, Physician Chief Complaint: Ms Aguilar complains of abdominal pain. +stool. No cp or sob upon seeing, however later complains of chest pain/twinges. - Current Medication List Current Medications: Active Medications Acetaminophen (Tylenol -) 650 mg PO Q4H PRN PRN Reason: FEVER OR PAIN Last Admin: 09/19/16 08:33 Dose: 650 mg Albuterol Sulfate (Ventolin Hfa Inhaler -) 1 puff IH Q4H PRN PRN Reason: ASTHMA Last Admin: 09/18/16 19:58 Dose: 1 puff Atorvastatin Calcium (Lipitor -) 10 mg PO HS [facility] Last Admin: 09/18/16 22:55 Dose: 10 mg Benzocaine/Menthol (Cepacol Lozenge -) 1 each MM PRN PRN PRN Reason: SORE THROAT Last Admin: 09/16/16 15:30 Dose: 1 each Docusate Sodium (Colace -) 100 mg PO TID [facility] Last Admin: 09/19/16 14:46 Dose: 100 mg Enoxaparin Sodium (Lovenox -) 40 mg SQ DAILY [facility] Last Admin: 09/19/16 09:57 Dose: 40 mg Folic Acid (Folic Acid -) 1 mg PO DAILY [facility] Last Admin: 09/19/16 09:57 Dose: 1 mg Dextrose/Sodium Chloride (D5-1/2ns -) 1,000 mls @ 100 mls/hr IV ASDIR [facility] Last Admin: 09/19/16 01:31 Dose: 100 mls/hr Metronidazole (Flagyl 500mg Premixed Ivpb -) 100 mls @ 100 mls/hr IVPB Q8H-IV [facility] Last Admin: 09/19/16 12:05 Dose: 100 mls/hr Ceftriaxone Sodium 2 gm/ (Dextrose) 100 mls @ 200 mls/hr IVPB DAILY [facility] Last Admin: 09/19/16 09:57 Dose: 200 mls/hr Pantoprazole Sodium 40 mg/ (Sodium Chloride) 100 mls @ 200 mls/hr IVPB DAILY [facility] Last Admin: 09/19/16 11:18 Dose: 200 mls/hr Ibuprofen (Caldolor Injection -) 800 mg IVPB Q6H PRN PRN Reason: PAIN Last Admin: 09/19/16 16:39 Dose: 800 mg Metoprolol Succinate (Toprol Xl -) 25 mg PO DAILY [facility] Last Admin: 09/19/16 17:15 Dose: 25 mg Montelukast Sodium (Singulair -) 10 mg PO HS [facility] Last Admin: 09/18/16 22:55 Dose: 10 mg Ondansetron HCl (Zofran Injection) 4 mg IVPB Q6H PRN PRN Reason: NAUSEA Last Admin: 09/18/16 13:01 Dose: 4 mg - Objective Vital Signs: Vital Signs Temperature 97.9 F 09/19/16 15:24 Pulse Rate 84 09/19/16 15:24 Respiratory Rate 16 09/19/16 15:24 Blood Pressure 130/72 09/19/16 15:24 O2 Sat by Pulse Oximetry (%) 95 09/18/16 21:00 Constitutional: Yes: No Distress, Calm, Obese Cardiovascular: Yes: Regular Rate and Rhythm. No: Gallop, Murmur, Rub Respiratory: Yes: Regular, CTA Bilaterally. No: Rales, Rhonchi, Wheezes Gastrointestinal: Yes: Normal Bowel Sounds, Hypoactive Bowel Sounds (but present today), Tenderness. No: Distention Extremities: Yes: WNL Edema: No Labs: CBC, BMP 09/19/16 06:40 09/19/16 06:40 Problem List - Problems (1) Perforation bowel Code(s): K63.1 - PERFORATION OF INTESTINE (NONTRAUMATIC) (2) Sepsis Code(s): A41.9 - SEPSIS, UNSPECIFIED ORGANISM (3) Hypertension Code(s): I10 - ESSENTIAL (PRIMARY) HYPERTENSION (4) HLD (hyperlipidemia) Code(s): E78.5 - HYPERLIPIDEMIA, UNSPECIFIED Assessment/Plan (1) Perforation bowel Assessment/Plan: -s/p laparotomy -surgery following -NGT removed -now with stool in colostomy bag -diet per surgery Code(s): K63.1 - PERFORATION OF INTESTINE (NONTRAUMATIC) (2) Sepsis Assessment/Plan: -secondary to perforated bowel -ID following -continue rocephin and flagyl -culture resulted, e. coli sensitive to rocephin Code(s): A41.9 - SEPSIS, UNSPECIFIED ORGANISM (3) Hypertension Assessment/Plan: -controlled -continue to monitor Code(s): I10 - ESSENTIAL (PRIMARY) HYPERTENSION (4) HLD (hyperlipidemia) Assessment/Plan: -continue statin Code(s): E78.5 - HYPERLIPIDEMIA, UNSPECIFIED (5) Hypokalemia -replace (6) Chest pain -obtain chest x-ray, EKG, and cardiac enzymes -consult cardiology
[2016-09-19] MEDS: ATORVASTATIN CA 10 MG TABLET (FP) PO SCH (21:19)
[2016-09-19] MEDS: MONTELUKAST NA 10 MG TABLET PO SCH (21:21)
[2016-09-20] MEDS: METRONIDAZOLE 500 MG PREMIXED 100 ML IVPB SCH ×3 (01:36→18:13)
[2016-09-20] MEDS: IBUPROFEN 800 MG/8 ML IJ IVPB PRN ×3 (03:01→21:50)
[2016-09-20] MEDS: DOCUSATE SODIUM 100 MG CAPSULE (FP) PO SCH ×3 (06:22→21:51)
[2016-09-20 06:45] LABS: CPK 39 IU/L (26-192); TROPONIN I < 0.02 ng/ml (0.00-0.05)
[2016-09-20 07:45] LABS: BASOPHIL 0.2 % (0-2.0); EOSINOPHIL 2.8 % (0-4.5); MCH 30.1 pg (25.7-33.7); MCHC 33.5 g/dl (32.0-36.0); MEAN CELL VOLUME 89.8 fl (80-96); MEAN PLT VOLUME 8.3 fl (7.5-11.1); NEUTROPHILS 77.6 % (42.8-82.8); PLATELET COUNT 422 K/MM3 (134-434); RDW 13.2 % (11.6-15.6)
[2016-09-20 07:59] LABS: ANION GAP 7 (8-16); CO2 28 mmol/L (21-32); CREATININE 0.5 mg/dL (0.55-1.02); GLUCOSE,RANDOM 109 mg/dL (74-106); MAGNESIUM 1.9 mg/dL (1.8-2.4); PHOSPHOROUS 2.1 mg/dL (2.5-4.9)
[2016-09-20 08:01] LABS: CPK 32 IU/L (26-192); TROPONIN I < 0.02 ng/ml (0.00-0.05)
--- NOTE | 2016-09-20 09:06 | PN ---
Progress Note, Physician Chief Complaint: cp History of Present Illness: cp resolved. she developed sharp, strong MATHEW shortly after SL nitro yesterday--cannot recall if CP subsided with the nitro or not. no more L shoulder pain either. (L hand hurting since IV motrin infusion started) no sob, palpit, diaph spells - Current Medication List Current Medications: Active Medications Acetaminophen (Tylenol -) 650 mg PO Q4H PRN PRN Reason: FEVER OR PAIN Last Admin: 09/19/16 20:41 Dose: 650 mg Albuterol Sulfate (Ventolin Hfa Inhaler -) 1 puff IH Q4H PRN PRN Reason: ASTHMA Last Admin: 09/18/16 19:58 Dose: 1 puff Atorvastatin Calcium (Lipitor -) 10 mg PO HS [facility] Last Admin: 09/19/16 21:19 Dose: 10 mg Benzocaine/Menthol (Cepacol Lozenge -) 1 each MM PRN PRN PRN Reason: SORE THROAT Last Admin: 09/16/16 15:30 Dose: 1 each Docusate Sodium (Colace -) 100 mg PO TID [facility] Last Admin: 09/20/16 06:22 Dose: 100 mg Enoxaparin Sodium (Lovenox -) 40 mg SQ DAILY [facility] Last Admin: 09/19/16 09:57 Dose: 40 mg Folic Acid (Folic Acid -) 1 mg PO DAILY [facility] Last Admin: 09/19/16 09:57 Dose: 1 mg Dextrose/Sodium Chloride (D5-1/2ns -) 1,000 mls @ 100 mls/hr IV ASDIR [facility] Last Admin: 09/19/16 20:45 Dose: Not Given Metronidazole (Flagyl 500mg Premixed Ivpb -) 100 mls @ 100 mls/hr IVPB Q8H-IV [facility] Last Admin: 09/20/16 01:36 Dose: 100 mls/hr Ceftriaxone Sodium 2 gm/ (Dextrose) 100 mls @ 200 mls/hr IVPB DAILY [facility] Last Admin: 09/19/16 09:57 Dose: 200 mls/hr Pantoprazole Sodium 40 mg/ (Sodium Chloride) 100 mls @ 200 mls/hr IVPB DAILY [facility] Last Admin: 09/19/16 11:18 Dose: 200 mls/hr Ibuprofen (Caldolor Injection -) 800 mg IVPB Q6H PRN PRN Reason: PAIN Last Admin: 09/20/16 03:01 Dose: 800 mg Metoprolol Succinate (Toprol Xl -) 25 mg PO DAILY [facility] Last Admin: 09/19/16 17:15 Dose: 25 mg Montelukast Sodium (Singulair -) 10 mg PO HS [facility] Last Admin: 09/19/16 21:21 Dose: 10 mg Ondansetron HCl (Zofran Injection) 4 mg IVPB Q6H PRN PRN Reason: NAUSEA Last Admin: 09/18/16 13:01 Dose: 4 mg - Objective Vital Signs: Vital Signs Temperature 98.2 F 09/20/16 06:16 Pulse Rate 61 09/20/16 06:16 Respiratory Rate 20 09/20/16 06:16 Blood Pressure 140/73 09/20/16 06:16 O2 Sat by Pulse Oximetry (%) 95 09/18/16 21:00 Constitutional: Yes: No Distress, Calm, Obese Cardiovascular: Yes: Regular Rate and Rhythm, S1, S2. No: Gallop, Murmur Respiratory: Yes: Regular, CTA Bilaterally. No: Accessory Muscle Use, Rales, Wheezes Extremities: No: Cold Edema: No Neurological: Yes: Alert, Oriented Psychiatric: No: Agitated Labs: CBC, BMP 09/20/16 06:00 09/20/16 06:00 Assessment/Plan CXR 09/19: diffuse interstitial pattern, no effusions or vasc redistrib seen, normal heart size/mediastinum shadow. no consolidation or suspected infiltrate-- not signif change vs 09/14 (when accounting for differences in penetration) ECG 09/14: sinus tach (106 bpm), normal axis/intervals. no path q's. diffuse NSST -Ts (no old) ECG 09/19: NSR, no signif change vs prior atypical CP: -no anginal features, subsiding on its own vs sec to NSAID being administered -no clear-cut GI features though this is possible in pt s/p laparotomy with ostomy bag -ecg no acute changes vs 09/14, though diffuse nonsp abnormalities (no prior incl on review of office chart) -serial trop x 3 negative -given trial SL nitro x 1 yesterday during ongoing pain, though by that time the intensity had already improved ? from NSAID effect--unclear if CP responded to NTG (pt cannot recall, RN notes do not give details of timing), but it eventually resolved -no more cp, cont to observe, no cardiac meds indicated at present -if no clear alternate explanation for her sx's arises, then even if sx's subside on their own, will want to do ischemia eval (stress test) once her abdomen heals and is stable HTN: -bp mildly elevated -not on meds here -started metoprolol 25mg HPL: -cont home atorva as doing diverticulitis with perf colon, s/p surgery: -per surgical team
[2016-09-20] MEDS ORDERED: PANTOPRAZOLE SODIUM 40 MG VIAL ONE (09:55)
[2016-09-20] MEDS ORDERED: SODIUM CHLORIDE 100 ML IVPB ONE (09:55)
[2016-09-20] MEDS ORDERED: DEXTROSE 5%-WATER 100 ML IVPB ONE (09:56)
[2016-09-20] MEDS: DEXTROSE 5%-0.45% SALINE 1,000 ML IV SCH ×2 (10:13→21:23)
[2016-09-20] MEDS: ENOXAPARIN NA (PORCINE) 40 MG/0.4 ML DISP.SYRIN SQ SCH (10:31)
[2016-09-20] MEDS: FOLIC ACID 1 MG TABLET (FP) PO SCH (10:31)
[2016-09-20] MEDS: PANTOPRAZOLE SODIUM 40 MG in SODIUM CHLORIDE 100 ML IVPB SCH (10:31)
[2016-09-20] MEDS: METOPROLOL SUCCINATE 25 MG TAB.SR.24H (FP) PO SCH (10:32)
[2016-09-20] MEDS: CEFTRIAXONE 2 GM in DEXTROSE 5%-WATER 100 ML IVPB SCH (10:32)
--- NOTE | 2016-09-20 11:49 | PN ---
Progress Note (short form) - Note Progress Note: Patient seen and examined Chart reviewed. Currently OOB to bathroom. Denies new chest discomfort as previously noted Labs, medication and progress/ senior energy consultant notes reviewed. Selected Entries 09/20/16 09/20/16 06:16 11:24 Temperature 98.2 F Pulse Rate 61 Respiratory 20 Rate Blood Pressure 95 Mean O2 Sat by Pulse 93 L Oximetry (%) Oxygen Flow 3 Rate Laboratory Tests 09/20/16 09/20/16 09/20/16 06:00 06:00 06:00 WBC 12.0 H Hgb 11.2 Hct 33.5 Plt Count 422 Sodium 140 Potassium 3.0 L Chloride 105 Carbon Dioxide 28 BUN 5 L D Random Glucose 109 H Calcium 8.0 L Phosphorus 2.1 L D Magnesium 1.9 Creatine Kinase 32 Troponin I < 0.02 Chest Clear Cor RRR Abd Post-operative with functioning colostomy and drainage tube with sero- sanguinous fluid Ext No edema No phlebitis Neuro No new focal deficit Assessment and Plan Diverticulitis with bowel perforation and sepsis syndrome post operative Currently stable Advance diet as per surgical team Hypokalemia 3.0 Replete Chest Pain syndrome Atypical Cardiology note reviewed HTN Stable HPL Stable Continue current Rx
[2016-09-20] MEDS: BENZOCAINE/MENTH/CETYLPYRD CL 1 EACH LOZENGE MM PRN (18:54)
[2016-09-20] MEDS: POTASSIUM CHLORIDE TABS 20 MEQ TABLET.ER (FP) PO SCH (21:51)
[2016-09-20] MEDS: MONTELUKAST NA 10 MG TABLET PO SCH (21:51)
[2016-09-20] MEDS: ATORVASTATIN CA 10 MG TABLET (FP) PO SCH (21:51)
[2016-09-21] MEDS: METRONIDAZOLE 500 MG PREMIXED 100 ML IVPB SCH ×3 (02:00→17:59)
[2016-09-21] MEDS: DEXTROSE 5%-0.45% SALINE 1,000 ML IV SCH ×3 (02:03→21:32)
[2016-09-21] MEDS: DOCUSATE SODIUM 100 MG CAPSULE (FP) PO SCH ×3 (06:46→21:31)
[2016-09-21 08:05] LABS: BASOPHIL 0.5 % (0-2.0); EOSINOPHIL 2.6 % (0-4.5); MCH 30.6 pg (25.7-33.7); MCHC 34.3 g/dl (32.0-36.0); MEAN CELL VOLUME 89.2 fl (80-96); MEAN PLT VOLUME 8.3 fl (7.5-11.1); NEUTROPHILS 72.1 % (42.8-82.8); PLATELET COUNT 415 K/MM3 (134-434); RDW 13.5 % (11.6-15.6); WHITE BLOOD COUNT 11.1 K/mm3 (4.0-10.0)
[2016-09-21 08:49] LABS: ALBUMIN 2.6 g/dl (3.4-5.0); ALK PHOS 77 U/L (45-117); ANION GAP 8 (8-16); BILIRUBIN,TOTAL 0.5 mg/dL (0.2-1.0); CALCIUM 8.1 mg/dL (8.5-10.1); CO2 27 mmol/L (21-32); CREATININE 0.5 mg/dL (0.55-1.02); GLUCOSE,RANDOM 97 mg/dL (74-106); MAGNESIUM 1.8 mg/dL (1.8-2.4); SGOT/AST 23 U/L (15-37); SGPT/ALT 17 U/L (12-78); TOT PROT 5.8 g/dl (6.4-8.2)
--- NOTE | 2016-09-21 08:52 | PN ---
Progress Note (short form) - Note Progress Note: Patient seen and examined Chart reviewed. Currently lying supine in bed, turned slightly to her right side Denies new chest discomfort as previously noted. No new abdominal discomfort Labs, medication and progress/technical solutions consultant notes reviewed. Selected Entries 09/20/16 09/21/16 21:00 06:00 Temperature 98.4 F Pulse Rate 61 Respiratory 20 Rate Blood Pressure 119/65 O2 Sat by Pulse 93 L Oximetry (%) Oxygen Delivery Nasal Cannula Method Oxygen Flow 3 Rate Labs pending Today's K+ 3.1 Chest Clear Cor RRR Abd Post-operative with functioning colostomy and drainage tube with sero- sanguinous fluid Ext No edema No phlebitis Neuro No new focal deficit Assessment and Plan Diverticulitis with bowel perforation and sepsis syndrome post operative Currently stable Advance diet as per surgical team Hypokalemia 3.0>>3.1 Replete Chest Pain syndrome Atypical Cardiology note reviewed HTN Stable HPL Stable Continue current Rx
[2016-09-21] MEDS: PANTOPRAZOLE SODIUM 40 MG in SODIUM CHLORIDE 100 ML IVPB SCH (10:30)
[2016-09-21] MEDS: KCL 10 MEQ IVPB 100 ML IVPB SCH ×2 (10:31→11:23)
[2016-09-21] MEDS ORDERED: PT OWN MED DRAWER 7, Y5N ONE (11:06)
[2016-09-21] MEDS ORDERED: PANTOPRAZOLE SODIUM 40 MG VIAL ONE (11:06)
[2016-09-21] MEDS ORDERED: SODIUM CHLORIDE 100 ML IVPB ONE (11:06)
[2016-09-21] MEDS ORDERED: DEXTROSE 5%-WATER 100 ML IVPB ONE (11:07)
[2016-09-21] MEDS: CEFTRIAXONE 2 GM in DEXTROSE 5%-WATER 100 ML IVPB SCH (11:29)
[2016-09-21] MEDS: ENOXAPARIN NA (PORCINE) 40 MG/0.4 ML DISP.SYRIN SQ SCH (11:30)
[2016-09-21] MEDS: METOPROLOL SUCCINATE 25 MG TAB.SR.24H (FP) PO SCH (11:31)
[2016-09-21] MEDS: FOLIC ACID 1 MG TABLET (FP) PO SCH (11:31)
[2016-09-21] MEDS: POTASSIUM CHLORIDE TABS 20 MEQ TABLET.ER (FP) PO SCH ×2 (11:32→21:32)
[2016-09-21] MEDS: IBUPROFEN 800 MG/8 ML IJ IVPB PRN (13:41)
[2016-09-21] MEDS: MONTELUKAST NA 10 MG TABLET PO SCH (21:32)
[2016-09-21] MEDS: ATORVASTATIN CA 10 MG TABLET (FP) PO SCH (21:32)
[2016-09-22] MEDS: METRONIDAZOLE 500 MG PREMIXED 100 ML IVPB SCH ×4 (01:13→18:35)
[2016-09-22] MEDS: DEXTROSE 5%-0.45% SALINE 1,000 ML IV SCH ×2 (01:15→18:35)
[2016-09-22] MEDS: DOCUSATE SODIUM 100 MG CAPSULE (FP) PO SCH ×3 (06:30→21:45)
[2016-09-22 08:03] LABS: BASOPHIL 0.3 % (0-2.0); EOSINOPHIL 1.3 % (0-4.5); MCH 30.1 pg (25.7-33.7); MCHC 33.7 g/dl (32.0-36.0); MEAN CELL VOLUME 89.2 fl (80-96); MEAN PLT VOLUME 8.2 fl (7.5-11.1); NEUTROPHILS 74.7 % (42.8-82.8); PLATELET COUNT 415 K/MM3 (134-434); RDW 13.8 % (11.6-15.6); WHITE BLOOD COUNT 11.5 K/mm3 (4.0-10.0)
[2016-09-22 08:27] LABS: ALBUMIN 2.9 g/dl (3.4-5.0); ANION GAP 9 (8-16); CALCIUM 8.4 mg/dL (8.5-10.1); CO2 27 mmol/L (21-32); GLUCOSE,RANDOM 110 mg/dL (74-106); SGOT/AST 29 U/L (15-37); SGPT/ALT 25 U/L (12-78)
[2016-09-22 08:29] LABS: ALK PHOS 71 U/L (45-117); BILIRUBIN,TOTAL 0.7 mg/dL (0.2-1.0); CREATININE 0.5 mg/dL (0.55-1.02)
--- NOTE | 2016-09-22 09:52 | EKG ---
Test Reason : Blood Pressure : / mmHG Vent. Rate : 066 BPM Atrial Rate : 066 BPM P-R Int : 116 ms QRS Dur : 090 ms QT Int : 442 ms P-R-T Axes : 062 036 033 degrees QTc Int : 463 ms NORMAL SINUS RHYTHM ABNORMAL ECG WHEN COMPARED WITH ECG OF 14-SEP-2016 09:58, VENT. RATE HAS DECREASED BY 40 BPM Confirmed by VIRGIE DECKER MD [id number]) on 09/22/2016 9:51:57 AM Referred By: SHYLA ROTHMAN Confirmed By:VIRGIE DECKER MD
[2016-09-22] MEDS ORDERED: SODIUM CHLORIDE 100 ML IVPB ONE (09:58)
[2016-09-22] MEDS ORDERED: PANTOPRAZOLE SODIUM 40 MG VIAL ONE (09:58)
[2016-09-22] MEDS ORDERED: DEXTROSE 5%-WATER 100 ML IVPB ONE (09:59)
[2016-09-22] MEDS: IBUPROFEN 800 MG/8 ML IJ IVPB PRN (10:02)
[2016-09-22] MEDS: CEFTRIAXONE 2 GM in DEXTROSE 5%-WATER 100 ML IVPB SCH (10:06)
[2016-09-22] MEDS: METOPROLOL SUCCINATE 25 MG TAB.SR.24H (FP) PO SCH (10:10)
[2016-09-22] MEDS: FOLIC ACID 1 MG TABLET (FP) PO SCH (10:10)
[2016-09-22] MEDS: POTASSIUM CHLORIDE TABS 20 MEQ TABLET.ER (FP) PO SCH ×2 (10:10→21:45)
[2016-09-22] MEDS: PANTOPRAZOLE SODIUM 40 MG in SODIUM CHLORIDE 100 ML IVPB SCH (10:10)
[2016-09-22] MEDS: ENOXAPARIN NA (PORCINE) 40 MG/0.4 ML DISP.SYRIN SQ SCH (10:13)
--- NOTE | 2016-09-22 14:04 | PN ---
Progress Note, Physician Chief Complaint: Ms Aguilar complains of abdominal pain today. Says is having flatus and bowel movements. Denies cp, sob, n/v. Is not tolerating diet secondary to her being lactose intolerant. - Current Medication List Current Medications: Active Medications Acetaminophen (Tylenol -) 650 mg PO Q4H PRN PRN Reason: FEVER OR PAIN Last Admin: 09/19/16 20:41 Dose: 650 mg Albuterol Sulfate (Ventolin Hfa Inhaler -) 1 puff IH Q4H PRN PRN Reason: ASTHMA Last Admin: 09/18/16 19:58 Dose: 1 puff Atorvastatin Calcium (Lipitor -) 10 mg PO HS [facility] Last Admin: 09/21/16 21:32 Dose: 10 mg Benzocaine/Menthol (Cepacol Lozenge -) 1 each MM PRN PRN PRN Reason: SORE THROAT Last Admin: 09/20/16 18:54 Dose: 1 each Docusate Sodium (Colace -) 100 mg PO TID [facility] Last Admin: 09/22/16 06:30 Dose: 100 mg Enoxaparin Sodium (Lovenox -) 40 mg SQ DAILY [facility] Last Admin: 09/22/16 10:13 Dose: 40 mg Folic Acid (Folic Acid -) 1 mg PO DAILY [facility] Last Admin: 09/22/16 10:10 Dose: 1 mg Dextrose/Sodium Chloride (D5-1/2ns -) 1,000 mls @ 100 mls/hr IV ASDIR [facility] Last Admin: 09/22/16 01:15 Dose: 100 mls/hr Metronidazole (Flagyl 500mg Premixed Ivpb -) 100 mls @ 100 mls/hr IVPB Q8H-IV [facility] Last Admin: 09/22/16 10:13 Dose: 100 mls/hr Ceftriaxone Sodium 2 gm/ (Dextrose) 100 mls @ 200 mls/hr IVPB DAILY [facility] Last Admin: 09/22/16 10:06 Dose: 200 mls/hr Pantoprazole Sodium 40 mg/ (Sodium Chloride) 100 mls @ 200 mls/hr IVPB DAILY [facility] Last Admin: 09/22/16 10:10 Dose: 200 mls/hr Ibuprofen (Caldolor Injection -) 800 mg IVPB Q6H PRN PRN Reason: PAIN Last Admin: 09/22/16 10:02 Dose: 800 mg Metoprolol Succinate (Toprol Xl -) 25 mg PO DAILY [facility] Last Admin: 09/22/16 10:10 Dose: 25 mg Montelukast Sodium (Singulair -) 10 mg PO HS [facility] Last Admin: 09/21/16 21:32 Dose: 10 mg Ondansetron HCl (Zofran Injection) 4 mg IVPB Q6H PRN PRN Reason: NAUSEA Last Admin: 09/18/16 13:01 Dose: 4 mg Potassium Chloride (K-Dur -) 20 meq PO BID [facility] Last Admin: 09/22/16 10:10 Dose: 20 meq - Objective Vital Signs: Vital Signs Temperature 98.0 F 09/22/16 08:07 Pulse Rate 62 09/22/16 08:07 Respiratory Rate 18 09/22/16 08:07 Blood Pressure 150/77 09/22/16 08:07 O2 Sat by Pulse Oximetry (%) 92 L 09/21/16 21:00 Constitutional: Yes: No Distress, Calm, Obese Cardiovascular: Yes: Regular Rate and Rhythm. No: Gallop, Murmur, Rub Respiratory: Yes: Regular, CTA Bilaterally. No: Rales, Rhonchi, Wheezes Gastrointestinal: Yes: Normal Bowel Sounds, Soft, Tenderness, Other (colostomy bag in place) Extremities: Yes: WNL Edema: No Labs: CBC, BMP 09/22/16 07:36 09/22/16 07:36 Problem List - Problems (1) Perforation bowel Code(s): K63.1 - PERFORATION OF INTESTINE (NONTRAUMATIC) (2) Sepsis Code(s): A41.9 - SEPSIS, UNSPECIFIED ORGANISM (3) Hypertension Code(s): I10 - ESSENTIAL (PRIMARY) HYPERTENSION (4) HLD (hyperlipidemia) Code(s): E78.5 - HYPERLIPIDEMIA, UNSPECIFIED Assessment/Plan (1) Perforation bowel Assessment/Plan: -surgery following -on full liquid diet, will make lactose free -still with pain, trial of oxycodone Code(s): K63.1 - PERFORATION OF INTESTINE (NONTRAUMATIC) (2) Sepsis Assessment/Plan: -secondary to perforated bowel -reviewed ID note -stop antibiotics today, finish full course Code(s): A41.9 - SEPSIS, UNSPECIFIED ORGANISM (3) Hypertension Assessment/Plan: -controlled -continue to monitor Code(s): I10 - ESSENTIAL (PRIMARY) HYPERTENSION (4) HLD (hyperlipidemia) Assessment/Plan: -continue statin Code(s): E78.5 - HYPERLIPIDEMIA, UNSPECIFIED (5) Hypokalemia -replace (6) Chest pain -appreciate cardiology assistance Dispo -discussed possible SNF placement if not with significant ambulation
[2016-09-22] MEDS: oxyCODONE HCL 5 MG TABLET PO PRN (15:19)
--- NOTE | 2016-09-22 15:19 | PN ---
Progress Note (short form) - Note Progress Note: Chief Complaint: cp History of Present Illness: S: no further chest pain. eating small amounts on liquid diet. Remains on IVF. Ambulated and sat in chair today. + abdominal pain persists. no cp, sob , palps, dizziness. Current Medications Acetaminophen (Tylenol -) 650 mg PO Q4H PRN PRN Reason: FEVER OR PAIN Last Admin: 09/19/16 20:41 Dose: 650 mg Albuterol Sulfate (Ventolin Hfa Inhaler -) 1 puff IH Q4H PRN PRN Reason: ASTHMA Last Admin: 09/18/16 19:58 Dose: 1 puff Atorvastatin Calcium (Lipitor -) 10 mg PO HS [facility] Last Admin: 09/21/16 21:32 Dose: 10 mg Benzocaine/Menthol (Cepacol Lozenge -) 1 each MM PRN PRN PRN Reason: SORE THROAT Last Admin: 09/20/16 18:54 Dose: 1 each Docusate Sodium (Colace -) 100 mg PO TID [facility] Last Admin: 09/22/16 06:30 Dose: 100 mg Enoxaparin Sodium (Lovenox -) 40 mg SQ DAILY [facility] Last Admin: 09/22/16 10:13 Dose: 40 mg Folic Acid (Folic Acid -) 1 mg PO DAILY [facility] Last Admin: 09/22/16 10:10 Dose: 1 mg Dextrose/Sodium Chloride (D5-1/2ns -) 1,000 mls @ 100 mls/hr IV ASDIR [facility] Last Admin: 09/22/16 01:15 Dose: 100 mls/hr Metronidazole (Flagyl 500mg Premixed Ivpb -) 100 mls @ 100 mls/hr IVPB Q8H-IV [facility] Last Admin: 09/22/16 10:13 Dose: 100 mls/hr Ceftriaxone Sodium 2 gm/ (Dextrose) 100 mls @ 200 mls/hr IVPB DAILY [facility] Last Admin: 09/22/16 10:06 Dose: 200 mls/hr Pantoprazole Sodium 40 mg/ (Sodium Chloride) 100 mls @ 200 mls/hr IVPB DAILY [facility] Last Admin: 09/22/16 10:10 Dose: 200 mls/hr Metoprolol Succinate (Toprol Xl -) 25 mg PO DAILY [facility] Last Admin: 09/22/16 10:10 Dose: 25 mg Montelukast Sodium (Singulair -) 10 mg PO HS [facility] Last Admin: 09/21/16 21:32 Dose: 10 mg Ondansetron HCl (Zofran Injection) 4 mg IVPB Q6H PRN PRN Reason: NAUSEA Last Admin: 09/18/16 13:01 Dose: 4 mg Oxycodone HCl (Roxicodone -) 5 mg PO Q4H PRN PRN Reason: PAIN Potassium Chloride (K-Dur -) 20 meq PO BID [facility] Last Admin: 09/22/16 10:10 Dose: 20 meq Vital Signs - 24 hr 09/21/16 09/21/16 09/21/16 16:20 21:00 22:00 Temperature 97.9 F 98.6 F Pulse Rate 66 Respiratory 20 20 Rate Blood Pressure O2 Sat by Pulse 92 L Oximetry (%) 09/22/16 09/22/16 06:32 08:07 Temperature 98.1 F 98.0 F Pulse Rate 69 62 Respiratory 20 18 Rate Blood Pressure 142/72 150/77 O2 Sat by Pulse Oximetry (%) Intake & Output 09/20/16 09/21/16 09/22/16 09/23/16 07:59 07:59 07:59 07:59 Intake Total 3700 3760 1680 1190 Output Total 460 535 435 200 Balance 3240 3225 1245 990 Constitutional: Yes: No Distress, Calm, Obese Cardiovascular: Yes: Regular Rate and Rhythm, S1, S2. No: Gallop, Murmur Respiratory: Yes: dullness at right base, nl effort No: Accessory Muscle Use, Rales, Wheezes Extremities: No: Cold Edema: No Neurological: Yes: Alert, Oriented Psychiatric: No: Agitated Labs: CBC, BMP 09/22/16 07:36 09/22/16 07:36 Assessment/Plan CXR 09/19: diffuse interstitial pattern, no effusions or vasc redistrib seen, normal heart size/mediastinum shadow. no consolidation or suspected infiltrate-- not signif change vs 09/14 (when accounting for differences in penetration) ECG 09/14: sinus tach (106 bpm), normal axis/intervals. no path q's. diffuse NSST -Ts (no old) ECG 09/19: NSR, no signif change vs prior atypical CP: -no anginal features, subsiding on its own vs sec to NSAID being administered -no clear-cut GI features though this is possible in pt s/p laparotomy with ostomy bag -ecg no acute changes vs 09/14, though diffuse nonsp abnormalities (no prior incl on review of office chart) -serial trop x 3 negative -given trial SL nitro x 1 during ongoing pain, though by that time the intensity had already improved ? from NSAID effect--unclear if CP responded to NTG (pt cannot recall, RN notes do not give details of timing), but it eventually resolved -no more cp, cont to observe, no cardiac meds indicated at present -if no clear alternate explanation for her sx's arises, then even if sx's subside on their own, will want to do ischemia eval (stress test) once her abdomen heals and is stable - replete potassium. HTN: -bp mildly elevated initially -not on meds here -started metoprolol 25mg here --> reasonable control, con't to monitor. HPL: -cont home atorva as doing diverticulitis with perf colon, s/p surgery: -per surgical team - would reduce IVF rate to maintenance now that she is taking po. sat's running on low end. atelectasis?. Repeat cxr.
[2016-09-22] MEDS: ACETAMINOPHEN 325 MG TABLET (FP) PO PRN (15:20)
[2016-09-22] MEDS: MONTELUKAST NA 10 MG TABLET PO SCH (21:45)
[2016-09-22] MEDS: ATORVASTATIN CA 10 MG TABLET (FP) PO SCH (21:45)
[2016-09-22] MEDS: ZOLPIDEM TARTRATE 5 MG TABLET PO PRN (22:50)
[2016-09-23] MEDS: DOCUSATE SODIUM 100 MG CAPSULE (FP) PO SCH ×3 (05:48→22:14)
[2016-09-23 08:17] LABS: BASOPHIL 0.2 % (0-2.0); EOSINOPHIL 0.9 % (0-4.5); MCH 29.8 pg (25.7-33.7); MCHC 33.5 g/dl (32.0-36.0); MEAN PLT VOLUME 8.5 fl (7.5-11.1); NEUTROPHILS 79.6 % (42.8-82.8); PLATELET COUNT 401 K/MM3 (134-434); RDW 13.8 % (11.6-15.6); WHITE BLOOD COUNT 12.9 K/mm3 (4.0-10.0)
[2016-09-23 09:05] LABS: ANION GAP 10 (8-16); CALCIUM 8.6 mg/dL (8.5-10.1); CO2 26 mmol/L (21-32); CREATININE 0.5 mg/dL (0.55-1.02); GLUCOSE,RANDOM 101 mg/dL (74-106); MAGNESIUM 2.1 mg/dL (1.8-2.4); PHOSPHOROUS 3.3 mg/dL (2.5-4.9)
[2016-09-23] MEDS ORDERED: SODIUM CHLORIDE 100 ML IVPB ONE (10:08)
[2016-09-23] MEDS ORDERED: PANTOPRAZOLE SODIUM 40 MG VIAL ONE (10:08)
[2016-09-23] MEDS: ENOXAPARIN NA (PORCINE) 40 MG/0.4 ML DISP.SYRIN SQ SCH (10:15)
[2016-09-23] MEDS: POTASSIUM CHLORIDE TABS 20 MEQ TABLET.ER (FP) PO SCH ×2 (10:15→22:14)
[2016-09-23] MEDS: FOLIC ACID 1 MG TABLET (FP) PO SCH (10:15)
[2016-09-23] MEDS: METOPROLOL SUCCINATE 25 MG TAB.SR.24H (FP) PO SCH (10:15)
[2016-09-23] MEDS: PANTOPRAZOLE SODIUM 40 MG in SODIUM CHLORIDE 100 ML IVPB SCH (10:15)
--- NOTE | 2016-09-23 11:59 | PN ---
Progress Note, Physician Chief Complaint: Ms Aguilar complains about the food, says she is not eating because she does not like it. No cp or sob. Still with some abdominal pain but improving. - Current Medication List Current Medications: Active Medications Acetaminophen (Tylenol -) 650 mg PO Q4H PRN PRN Reason: FEVER OR PAIN Last Admin: 09/22/16 15:20 Dose: 650 mg Albuterol Sulfate (Ventolin Hfa Inhaler -) 1 puff IH Q4H PRN PRN Reason: ASTHMA Last Admin: 09/18/16 19:58 Dose: 1 puff Atorvastatin Calcium (Lipitor -) 10 mg PO HS [facility] Last Admin: 09/22/16 21:45 Dose: 10 mg Benzocaine/Menthol (Cepacol Lozenge -) 1 each MM PRN PRN PRN Reason: SORE THROAT Last Admin: 09/20/16 18:54 Dose: 1 each Docusate Sodium (Colace -) 100 mg PO TID [facility] Last Admin: 09/23/16 05:48 Dose: 100 mg Enoxaparin Sodium (Lovenox -) 40 mg SQ DAILY [facility] Last Admin: 09/23/16 10:15 Dose: 40 mg Folic Acid (Folic Acid -) 1 mg PO DAILY [facility] Last Admin: 09/23/16 10:15 Dose: 1 mg Pantoprazole Sodium 40 mg/ (Sodium Chloride) 100 mls @ 200 mls/hr IVPB DAILY [facility] Last Admin: 09/23/16 10:15 Dose: 200 mls/hr Dextrose/Sodium Chloride (D5-1/2ns -) 1,000 mls @ 42 mls/hr IV ASDIR [facility] Last Admin: 09/22/16 18:35 Dose: 42 mls/hr Metoprolol Succinate (Toprol Xl -) 25 mg PO DAILY [facility] Last Admin: 09/23/16 10:15 Dose: 25 mg Montelukast Sodium (Singulair -) 10 mg PO HS [facility] Last Admin: 09/22/16 21:45 Dose: 10 mg Ondansetron HCl (Zofran Injection) 4 mg IVPB Q6H PRN PRN Reason: NAUSEA Last Admin: 09/18/16 13:01 Dose: 4 mg Oxycodone HCl (Roxicodone -) 5 mg PO Q4H PRN PRN Reason: PAIN Last Admin: 09/22/16 15:19 Dose: 5 mg Potassium Chloride (K-Dur -) 20 meq PO BID [facility] Last Admin: 09/23/16 10:15 Dose: 20 meq Zolpidem Tartrate (Ambien -) 5 mg PO HS [facility] Last Admin: 09/22/16 22:50 Dose: 5 mg - Objective Vital Signs: Vital Signs Temperature 98.3 F 09/23/16 07:09 Pulse Rate 72 09/23/16 07:09 Respiratory Rate 20 09/23/16 07:09 Blood Pressure 146/80 09/23/16 07:09 O2 Sat by Pulse Oximetry (%) 95 09/22/16 21:00 Constitutional: Yes: No Distress, Calm, Obese Cardiovascular: Yes: Regular Rate and Rhythm. No: Gallop, Murmur, Rub Respiratory: Yes: Regular, CTA Bilaterally. No: Rales, Rhonchi, Wheezes Gastrointestinal: Yes: Normal Bowel Sounds, Soft. No: Distention, Tenderness Extremities: Yes: WNL Edema: No Labs: CBC, BMP 09/23/16 07:30 09/23/16 07:00 Problem List - Problems (1) Perforation bowel Code(s): K63.1 - PERFORATION OF INTESTINE (NONTRAUMATIC) (2) Sepsis Code(s): A41.9 - SEPSIS, UNSPECIFIED ORGANISM (3) Hypertension Code(s): I10 - ESSENTIAL (PRIMARY) HYPERTENSION (4) HLD (hyperlipidemia) Code(s): E78.5 - HYPERLIPIDEMIA, UNSPECIFIED Assessment/Plan (1) Perforation bowel Assessment/Plan: -surgery following -case discussed, advance diet to see if tolerates Code(s): K63.1 - PERFORATION OF INTESTINE (NONTRAUMATIC) (2) Sepsis Assessment/Plan: -antibiotics finished -advance diet -monitor for worsening leukocytosis or fevers -may need CT scan if either occur, surgery to evaluate Code(s): A41.9 - SEPSIS, UNSPECIFIED ORGANISM (3) Hypertension Assessment/Plan: -controlled -continue to monitor Code(s): I10 - ESSENTIAL (PRIMARY) HYPERTENSION (4) HLD (hyperlipidemia) Assessment/Plan: -continue statin Code(s): E78.5 - HYPERLIPIDEMIA, UNSPECIFIED (5) Hypokalemia -replaced (6) Chest pain -appreciate cardiology assistance Dispo -possible discharge tomorrow
--- NOTE | 2016-09-23 12:22 | PN ---
Progress Note (short form) - Note Progress Note: surgery pt seen and examined. walking. feels well. wants to go home. hungry. afebrile abd- soft, non distended, wound clean, colostomy with soft stool, pink and protruding, mf clean, maxi serous Laboratory Tests 09/23/16 07:30 WBC 12.9 H A/P 1) Pod#9- regular diet, colace, cont maxi 2) perforated sigmoid colon- off abx since yesterday, follow wbc and for fever. if ok can likely discharge. otherwise will need repeat ct. 3) open wound- deeply irrigate daily with saline and pack with iodoform gauze 4) prophylaxis- lovenox, protonix, oob, spirometer 5) hypophosphatemia- resolved 6) hypokalemia- resolved
[2016-09-23] MEDS: oxyCODONE HCL 5 MG TABLET PO PRN ×2 (12:58→22:14)
[2016-09-23] MEDS: DEXTROSE 5%-0.45% SALINE 1,000 ML IV SCH (22:13)
[2016-09-23] MEDS: MONTELUKAST NA 10 MG TABLET PO SCH (22:13)
[2016-09-23] MEDS: ATORVASTATIN CA 10 MG TABLET (FP) PO SCH (22:14)
[2016-09-23] MEDS: ZOLPIDEM TARTRATE 5 MG TABLET PO PRN (22:14)
[2016-09-24] MEDS: DOCUSATE SODIUM 100 MG CAPSULE (FP) PO SCH ×3 (06:33→21:47)
[2016-09-24 08:32] LABS: BASOPHIL 0.3 % (0-2.0); MCH 30.9 pg (25.7-33.7); MCHC 34.2 g/dl (32.0-36.0); MEAN CELL VOLUME 90.3 fl (80-96); MEAN PLT VOLUME 8.4 fl (7.5-11.1); PLATELET COUNT 349 K/MM3 (134-434); RDW 13.9 % (11.6-15.6); WHITE BLOOD COUNT 14.2 K/mm3 (4.0-10.0)
[2016-09-24 08:59] LABS: ANION GAP 6 (8-16); CALCIUM 8.7 mg/dL (8.5-10.1); CO2 28 mmol/L (21-32); GLUCOSE,RANDOM 102 mg/dL (74-106)
[2016-09-24 09:00] LABS: CREATININE 0.7 mg/dL (0.55-1.02); PHOSPHOROUS 3.6 mg/dL (2.5-4.9)
[2016-09-24] MEDS ORDERED: PANTOPRAZOLE SODIUM 40 MG VIAL ONE (10:10)
[2016-09-24] MEDS ORDERED: SODIUM CHLORIDE 100 ML IVPB ONE (10:10)
[2016-09-24] MEDS: POTASSIUM CHLORIDE TABS 20 MEQ TABLET.ER (FP) PO SCH ×2 (10:15→21:47)
[2016-09-24] MEDS: METOPROLOL SUCCINATE 25 MG TAB.SR.24H (FP) PO SCH (10:15)
[2016-09-24] MEDS: FOLIC ACID 1 MG TABLET (FP) PO SCH (10:15)
[2016-09-24] MEDS: PANTOPRAZOLE SODIUM 40 MG in SODIUM CHLORIDE 100 ML IVPB SCH (10:16)
[2016-09-24] MEDS: ENOXAPARIN NA (PORCINE) 40 MG/0.4 ML DISP.SYRIN SQ SCH (10:16)
--- NOTE | 2016-09-24 11:07 | PN ---
Progress Note, Physician Chief Complaint: Ms Aguilar says she is doing well. Ate her breakfast without difficulty. No cp , sob, n/v. - Current Medication List Current Medications: Active Medications Acetaminophen (Tylenol -) 650 mg PO Q4H PRN PRN Reason: FEVER OR PAIN Last Admin: 09/22/16 15:20 Dose: 650 mg Albuterol Sulfate (Ventolin Hfa Inhaler -) 1 puff IH Q4H PRN PRN Reason: ASTHMA Last Admin: 09/18/16 19:58 Dose: 1 puff Atorvastatin Calcium (Lipitor -) 10 mg PO HS [facility] Last Admin: 09/23/16 22:14 Dose: 10 mg Benzocaine/Menthol (Cepacol Lozenge -) 1 each MM PRN PRN PRN Reason: SORE THROAT Last Admin: 09/20/16 18:54 Dose: 1 each Docusate Sodium (Colace -) 100 mg PO TID [facility] Last Admin: 09/24/16 06:33 Dose: 100 mg Enoxaparin Sodium (Lovenox -) 40 mg SQ DAILY [facility] Last Admin: 09/24/16 10:16 Dose: 40 mg Folic Acid (Folic Acid -) 1 mg PO DAILY [facility] Last Admin: 09/24/16 10:15 Dose: 1 mg Pantoprazole Sodium 40 mg/ (Sodium Chloride) 100 mls @ 200 mls/hr IVPB DAILY [facility] Last Admin: 09/24/16 10:16 Dose: 200 mls/hr Dextrose/Sodium Chloride (D5-1/2ns -) 1,000 mls @ 42 mls/hr IV ASDIR [facility] Last Admin: 09/23/16 22:13 Dose: 42 mls/hr Metoprolol Succinate (Toprol Xl -) 25 mg PO DAILY [facility] Last Admin: 09/24/16 10:15 Dose: 25 mg Montelukast Sodium (Singulair -) 10 mg PO HS [facility] Last Admin: 09/23/16 22:13 Dose: 10 mg Ondansetron HCl (Zofran Injection) 4 mg IVPB Q6H PRN PRN Reason: NAUSEA Last Admin: 09/18/16 13:01 Dose: 4 mg Oxycodone HCl (Roxicodone -) 5 mg PO Q4H PRN PRN Reason: PAIN Last Admin: 09/23/16 22:14 Dose: 5 mg Potassium Chloride (K-Dur -) 20 meq PO BID [facility] Last Admin: 09/24/16 10:15 Dose: 20 meq Zolpidem Tartrate (Ambien -) 5 mg PO HS [facility] Last Admin: 09/23/16 22:14 Dose: 5 mg - Objective Vital Signs: Vital Signs Temperature 98.4 F 09/24/16 07:52 Pulse Rate 67 09/24/16 07:52 Respiratory Rate 20 09/24/16 07:52 Blood Pressure 116/69 09/24/16 07:52 O2 Sat by Pulse Oximetry (%) 96 09/23/16 21:00 Constitutional: Yes: No Distress, Calm, Obese Cardiovascular: Yes: Regular Rate and Rhythm. No: Gallop, Murmur, Rub Respiratory: Yes: Regular, CTA Bilaterally. No: Rales, Rhonchi, Wheezes Gastrointestinal: Yes: Normal Bowel Sounds, Soft, Other (colostomy bag in place) . No: Distention, Tenderness Extremities: Yes: WNL Edema: No Labs: CBC, BMP 09/24/16 06:30 09/24/16 06:30 Problem List - Problems (1) Perforation bowel Code(s): K63.1 - PERFORATION OF INTESTINE (NONTRAUMATIC) (2) Sepsis Code(s): A41.9 - SEPSIS, UNSPECIFIED ORGANISM (3) Hypertension Code(s): I10 - ESSENTIAL (PRIMARY) HYPERTENSION (4) HLD (hyperlipidemia) Code(s): E78.5 - HYPERLIPIDEMIA, UNSPECIFIED Assessment/Plan (1) Perforation bowel Assessment/Plan: -surgery following -tolerated advancement of diet without difficulty -surgery to see Code(s): K63.1 - PERFORATION OF INTESTINE (NONTRAUMATIC) (2) Sepsis Assessment/Plan: -patient without complaints -however increasing WBC off of antibiotics -surgery to see, may need CT scan -if not, can discharge today with close follow up Code(s): A41.9 - SEPSIS, UNSPECIFIED ORGANISM (3) Hypertension Assessment/Plan: -controlled -continue to monitor Code(s): I10 - ESSENTIAL (PRIMARY) HYPERTENSION (4) HLD (hyperlipidemia) Assessment/Plan: -continue statin Code(s): E78.5 - HYPERLIPIDEMIA, UNSPECIFIED (5) Hypokalemia -replaced (6) Chest pain -appreciate cardiology assistance Dispo -? if needs CT scan to rule out abscess, surgery to see
--- NOTE | 2016-09-24 11:24 | PN ---
Progress Note (short form) - Note Progress Note: surgery pt seen and examined. still well. tolerated regular diet. afebrile abd- soft, non distended, no tenderness, wound probed to fascia-- clean, colostomy with soft stool, pink and protruding, mf clean, maxi serous Laboratory Tests 09/21/16 09/22/16 09/23/16 06:20 07:36 07:30 WBC 11.1 H 11.5 H 12.9 H 09/24/16 06:30 WBC 14.2 H A/P 1) Pod#10- regular diet, colace, cont maxi 2) perforated sigmoid colon- off abx since Thursday, wbc rising. will get ct to look for collection. 3) open wound- deeply irrigate daily with saline and pack with iodoform gauze 4) prophylaxis- lovenox, protonix, oob, spirometer 5) hypophosphatemia- resolved 6) hypokalemia- resolved
[2016-09-24] MEDS: oxyCODONE HCL 5 MG TABLET PO PRN ×2 (17:32→21:47)
[2016-09-24] MEDS: MONTELUKAST NA 10 MG TABLET PO SCH (21:47)
[2016-09-24] MEDS: ATORVASTATIN CA 10 MG TABLET (FP) PO SCH (21:47)
[2016-09-24] MEDS: ZOLPIDEM TARTRATE 5 MG TABLET PO PRN (21:48)
[2016-09-25] MEDS: DOCUSATE SODIUM 100 MG CAPSULE (FP) PO SCH ×3 (06:07→21:56)
[2016-09-25 08:05] LABS: BASOPHIL 0.5 % (0-2.0); EOSINOPHIL 0.7 % (0-4.5); MCH 30.4 pg (25.7-33.7); MCHC 33.7 g/dl (32.0-36.0); MEAN CELL VOLUME 90.2 fl (80-96); MEAN PLT VOLUME 8.7 fl (7.5-11.1); NEUTROPHILS 79.8 % (42.8-82.8); PLATELET COUNT 344 K/MM3 (134-434); RDW 14.2 % (11.6-15.6)
[2016-09-25 08:48] LABS: ANION GAP 9 (8-16); CALCIUM 8.6 mg/dL (8.5-10.1); CO2 26 mmol/L (21-32); CREATININE 0.6 mg/dL (0.55-1.02); GLUCOSE,RANDOM 93 mg/dL (74-106); MAGNESIUM 2.2 mg/dL (1.8-2.4); PHOSPHOROUS 3.7 mg/dL (2.5-4.9)
[2016-09-25] MEDS ORDERED: SODIUM CHLORIDE 200 ML IVPB ONE (09:28)
[2016-09-25] MEDS ORDERED: PANTOPRAZOLE SODIUM 40 MG VIAL ONE (09:28)
[2016-09-25] MEDS: oxyCODONE HCL 5 MG TABLET PO PRN ×3 (09:36→21:59)
[2016-09-25] MEDS: FOLIC ACID 1 MG TABLET (FP) PO SCH (09:37)
[2016-09-25] MEDS: ENOXAPARIN NA (PORCINE) 40 MG/0.4 ML DISP.SYRIN SQ SCH (09:37)
[2016-09-25] MEDS: POTASSIUM CHLORIDE TABS 20 MEQ TABLET.ER (FP) PO SCH ×2 (09:37→21:56)
[2016-09-25] MEDS: METOPROLOL SUCCINATE 25 MG TAB.SR.24H (FP) PO SCH (09:37)
--- NOTE | 2016-09-25 09:39 | PN ---
Progress Note (short form) - Note Progress Note: surgery Ct reviewed. no collection. no abd pathology. wbc remains 14. suspect will eventually return to normal. will get u/s to r/o dvt (low suspicion but pt is ellis risk). No acute surgical intervention. will follow as outpatient in 2-4 weeks. will need vns for irrigation,
[2016-09-25] MEDS: DEXTROSE 5%-0.45% SALINE 1,000 ML IV SCH (14:01)
[2016-09-25] MEDS: PANTOPRAZOLE SODIUM 40 MG in SODIUM CHLORIDE 100 ML IVPB SCH (14:30)
--- NOTE | 2016-09-25 16:56 | PN ---
Progress Note, Physician Chief Complaint: Ms gAuilar complained of leg pain earlier, but is now resolved. No cp or sob. Still with some abdominal pain. - Current Medication List Current Medications: Active Medications Acetaminophen (Tylenol -) 650 mg PO Q4H PRN PRN Reason: FEVER OR PAIN Last Admin: 09/22/16 15:20 Dose: 650 mg Albuterol Sulfate (Ventolin Hfa Inhaler -) 1 puff IH Q4H PRN PRN Reason: ASTHMA Last Admin: 09/18/16 19:58 Dose: 1 puff Atorvastatin Calcium (Lipitor -) 10 mg PO HS [facility] Last Admin: 09/24/16 21:47 Dose: 10 mg Benzocaine/Menthol (Cepacol Lozenge -) 1 each MM PRN PRN PRN Reason: SORE THROAT Last Admin: 09/20/16 18:54 Dose: 1 each Docusate Sodium (Colace -) 100 mg PO TID [facility] Last Admin: 09/25/16 15:16 Dose: 100 mg Enoxaparin Sodium (Lovenox -) 40 mg SQ DAILY [facility] Last Admin: 09/25/16 09:37 Dose: 40 mg Folic Acid (Folic Acid -) 1 mg PO DAILY [facility] Last Admin: 09/25/16 09:37 Dose: 1 mg Metoprolol Succinate (Toprol Xl -) 25 mg PO DAILY [facility] Last Admin: 09/25/16 09:37 Dose: 25 mg Montelukast Sodium (Singulair -) 10 mg PO HS [facility] Last Admin: 09/24/16 21:47 Dose: 10 mg Oxycodone HCl (Roxicodone -) 5 mg PO Q4H PRN PRN Reason: PAIN Last Admin: 09/25/16 15:16 Dose: 5 mg Potassium Chloride (K-Dur -) 20 meq PO BID [facility] Last Admin: 09/25/16 09:37 Dose: 20 meq Zolpidem Tartrate (Ambien -) 5 mg PO HS [facility] Last Admin: 09/24/16 21:48 Dose: 5 mg - Objective Vital Signs: Vital Signs Temperature 98.5 F 09/25/16 15:12 Pulse Rate 79 09/25/16 15:12 Respiratory Rate 18 09/25/16 15:12 Blood Pressure 104/65 09/25/16 15:12 O2 Sat by Pulse Oximetry (%) 96 09/25/16 09:00 Constitutional: Yes: No Distress, Calm, Obese Cardiovascular: Yes: Regular Rate and Rhythm. No: Gallop, Murmur, Rub Respiratory: Yes: Regular, CTA Bilaterally. No: Rales, Rhonchi, Wheezes Gastrointestinal: Yes: Normal Bowel Sounds, Soft. No: Distention, Tenderness Extremities: Yes: WNL Edema: No Labs: CBC, BMP 09/25/16 06:30 09/25/16 06:30 Problem List - Problems (1) Perforation bowel Code(s): K63.1 - PERFORATION OF INTESTINE (NONTRAUMATIC) (2) Sepsis Code(s): A41.9 - SEPSIS, UNSPECIFIED ORGANISM (3) Hypertension Code(s): I10 - ESSENTIAL (PRIMARY) HYPERTENSION (4) HLD (hyperlipidemia) Code(s): E78.5 - HYPERLIPIDEMIA, UNSPECIFIED Assessment/Plan (1) Perforation bowel Assessment/Plan: -stable for discharge -on regular diet Code(s): K63.1 - PERFORATION OF INTESTINE (NONTRAUMATIC) (2) Sepsis Assessment/Plan: -CT scan shows no abscess -leukocytosis stable -expect to decrease over time Code(s): A41.9 - SEPSIS, UNSPECIFIED ORGANISM (3) Hypertension Assessment/Plan: -controlled -continue to monitor Code(s): I10 - ESSENTIAL (PRIMARY) HYPERTENSION (4) HLD (hyperlipidemia) Assessment/Plan: -continue statin Code(s): E78.5 - HYPERLIPIDEMIA, UNSPECIFIED (5) Hypokalemia -replaced (6) Chest pain -appreciate cardiology assistance Dispo -patient says her apartment has bedbugs -if so, unable to send home as at risk for infection -CM/SW aware and evaluating for other options
[2016-09-25] MEDS: MONTELUKAST NA 10 MG TABLET PO SCH (21:56)
[2016-09-25] MEDS: ATORVASTATIN CA 10 MG TABLET (FP) PO SCH (21:56)
[2016-09-25] MEDS: ACETAMINOPHEN 325 MG TABLET (FP) PO PRN (21:58)
[2016-09-26] MEDS: DOCUSATE SODIUM 100 MG CAPSULE (FP) PO SCH ×3 (06:52→22:09)
[2016-09-26 08:33] LABS: BASOPHIL 0.8 % (0-2.0); EOSINOPHIL 1.1 % (0-4.5); MCH 30.1 pg (25.7-33.7); MCHC 33.1 g/dl (32.0-36.0); MEAN PLT VOLUME 8.8 fl (7.5-11.1); NEUTROPHILS 72.6 % (42.8-82.8); PLATELET COUNT 338 K/MM3 (134-434); WHITE BLOOD COUNT 11.2 K/mm3 (4.0-10.0)
--- NOTE | 2016-09-26 10:32 | PN ---
Progress Note (short form) - Note Progress Note: Chief Complaint: cp History of Present Illness: S: abd pain improved, eating now. no sob palps dizzy. occasional "twinge" sensation in epigastric area. Current Medications Generic Name Dose Route Start Last Admin Trade Name Freq PRN Reason Stop Dose Admin Acetaminophen 650 mg 09/16/16 19:45 09/25/16 21:58 Tylenol - PO 650 mg Q4H PRN Administration FEVER OR PAIN Albuterol Sulfate 1 puff 09/16/16 19:45 09/18/16 19:58 Ventolin Hfa Inhaler - IH 1 puff Q4H PRN Administration ASTHMA Atorvastatin Calcium 10 mg 09/16/16 22:00 09/25/16 21:56 Lipitor - PO 10 mg HS [facility] Administration Benzocaine/Menthol 1 each 09/16/16 14:59 09/20/16 18:54 Cepacol Lozenge - MM 1 each PRN PRN Administration SORE THROAT Docusate Sodium 100 mg 09/19/16 14:00 09/26/16 06:52 Colace - PO 100 mg TID [facility] Administration Enoxaparin Sodium 40 mg 09/17/16 10:00 09/25/16 09:37 Lovenox - SQ 40 mg DAILY [facility] Administration Folic Acid 1 mg 09/17/16 10:00 09/25/16 09:37 Folic Acid - PO 1 mg DAILY [facility] Administration Metoprolol Succinate 25 mg 09/19/16 17:00 09/25/16 09:37 Toprol Xl - PO 25 mg DAILY [facility] Administration Montelukast Sodium 10 mg 09/16/16 22:00 09/25/16 21:56 Singulair - PO 10 mg HS [facility] Administration Oxycodone HCl 5 mg 09/22/16 14:50 09/25/16 21:59 Roxicodone - PO 5 mg Q4H PRN Administration PAIN Potassium Chloride 20 meq 09/20/16 22:00 09/25/16 21:56 K-Dur - PO 20 meq BID [facility] Administration Zolpidem Tartrate 5 mg 09/22/16 20:01 09/24/16 21:48 Ambien - PO 5 mg HS PRN Administration Vital Signs Period Temp Pulse Resp BP Sys/Kirkpatrick Pulse Ox Last 24 Hr 98.4 F-98.7 F 68-97 18-20 104-123/65-94 96-96 Constitutional: Yes: No Distress, Calm, Obese Cardiovascular: Yes: Regular Rate and Rhythm, S1, S2. No: Gallop, Murmur Respiratory: Yes: cta bl nl effort No: Accessory Muscle Use, Rales, Wheezes Extremities: No: Cold Edema: No Neurological: Yes: Alert, Oriented Psychiatric No: Agitated no jaundice diaphoresis mild abd tenderness, ND Labs: CBC, BMP 09/26/16 06:00 09/25/16 06:30 CXR 09/19: diffuse interstitial pattern, no effusions or vasc redistrib seen, normal heart size/mediastinum shadow. no consolidation or suspected infiltrate-- not signif change vs 09/14 (when accounting for differences in penetration) ECG 09/14: sinus tach (106 bpm), normal axis/intervals. no path q's. diffuse NSST -Ts (no old) ECG 09/19: NSR, no signif change vs prior a/p: atypical CP: -no anginal features -no clear-cut GI features though this is possible in pt s/p laparotomy with ostomy bag -ecg no acute changes vs 09/14, though diffuse nonsp abnormalities (no prior incl on review of office chart) -serial trop x 3 negative -no more cp, cont to observe, no cardiac meds indicated at present -would plan on outpt ischemic eval (stress test) once her abdomen heals and she recovers HTN: -controlled on bb HPL: -cont home atorva as doing diverticulitis with perf colon, s/p surgery: -per surgical team, awaiting dc
[2016-09-26] MEDS: ENOXAPARIN NA (PORCINE) 40 MG/0.4 ML DISP.SYRIN SQ SCH (11:14)
[2016-09-26] MEDS: POTASSIUM CHLORIDE TABS 20 MEQ TABLET.ER (FP) PO SCH ×2 (11:14→22:09)
[2016-09-26] MEDS: METOPROLOL SUCCINATE 25 MG TAB.SR.24H (FP) PO SCH (11:15)
[2016-09-26] MEDS: FOLIC ACID 1 MG TABLET (FP) PO SCH (11:15)
--- NOTE | 2016-09-26 11:15 | DS ---
Physical Examination Vital Signs: Vital Signs Temperature 98.7 F 09/25/16 22:00 Pulse Rate 97 H 09/26/16 09:23 Respiratory Rate 20 09/25/16 22:00 Blood Pressure 123/66 09/25/16 22:00 O2 Sat by Pulse Oximetry (%) 96 09/26/16 09:23 Constitutional: Yes: No Distress, Calm, Obese Cardiovascular: Yes: Regular Rate and Rhythm. No: Gallop, Murmur, Rub Respiratory: Yes: Regular, CTA Bilaterally. No: Rales, Rhonchi, Wheezes Gastrointestinal: Yes: Normal Bowel Sounds, Soft. No: Distention, Tenderness Extremities: Yes: WNL Edema: No Labs: CBC, BMP 09/26/16 06:00 09/25/16 06:30 Discharge Summary Reason For Visit: PERFORATION OF INTESTINE Current Active Problems Constipation (Acute) Diverticulitis (Acute) HLD (hyperlipidemia) (Acute) Hypertension (Acute) Perforation bowel (Acute) Perforation of sigmoid colon due to diverticulitis (Acute) Sepsis (Acute) Hospital Course: (1) Perforation bowel Code(s): K63.1 - PERFORATION OF INTESTINE (NONTRAUMATIC) (2) Sepsis Code(s): A41.9 - SEPSIS, UNSPECIFIED ORGANISM (3) Hypertension Code(s): I10 - ESSENTIAL (PRIMARY) HYPERTENSION (4) HLD (hyperlipidemia) Code(s): E78.5 - HYPERLIPIDEMIA, UNSPECIFIED (5) Hypokalemia (6) Chest pain Ms Aguilar is a 66 year old woman who comes in with sepsis secondary to perforation of the bowel. She was admitted and taken to the OR. She underwent partial colectomy with colostomy bag placement. She finished her full course of antibiotics and her sepsis resolved. She was seen by surgery and her diet was advanced. She is currently doing well and is stable for discharge. 32 minutes spent in preparation of this discharge Condition: Good - Instructions Diet, Activity, Other Instructions: diabetic diet. Resume previous activity. Referrals: Josie Cosme MD [Primary Care Provider] - Pablo Galarza MD [Staff Physician] - Disposition: VNS/HOME HEALTH CARE - Home Medications Comprehensive Discharge Medication List: Ambulatory Orders Acetaminophen [Tylenol] 650 mg PO PRN PRN 09/14/16 Albuterol Sulfate Inhaler - [Ventolin HFA Inhaler -] 1 - 2 inh PO Q4H PRN Aspirin [ASA -] 81 mg PO DAILY 09/14/16 Cholecalciferol (Vitamin D3) [Vitamin D3] 1,000 unit PO BID 09/14/16 Folic Acid 1 mg PO DAILY 09/14/16 Meclizine HCl 25 mg PO DAILY 09/14/16 Montelukast Sodium [Singulair] 10 mg PO DAILY 09/14/16 Pravastatin Sodium [Pravachol -] 20 mg PO HS 09/14/16 Metoprolol Succinate [Toprol XL -] 25 mg PO DAILY #30 tab.sr 09/26/16 Oxycodone HCl [Roxicodone -] 5 mg PO Q4H PRN #10 tablet MDD 30mg 09/26/16
[2016-09-26] MEDS: ACETAMINOPHEN 325 MG TABLET (FP) PO PRN (13:19)
[2016-09-26] MEDS: ATORVASTATIN CA 10 MG TABLET (FP) PO SCH (22:09)
[2016-09-26] MEDS: MONTELUKAST NA 10 MG TABLET PO SCH (22:09)
[2016-09-26] MEDS: oxyCODONE HCL 5 MG TABLET PO PRN (22:30)
[2016-09-27] MEDS: DOCUSATE SODIUM 100 MG CAPSULE (FP) PO SCH (06:45)
[2016-09-27] MEDS: POTASSIUM CHLORIDE TABS 20 MEQ TABLET.ER (FP) PO SCH (10:13)
[2016-09-27] MEDS: FOLIC ACID 1 MG TABLET (FP) PO SCH (10:13)
[2016-09-27] MEDS: ENOXAPARIN NA (PORCINE) 40 MG/0.4 ML DISP.SYRIN SQ SCH (10:13)
[2016-09-27] MEDS: METOPROLOL SUCCINATE 25 MG TAB.SR.24H (FP) PO SCH (10:21)
--- NOTE | 2016-09-27 11:08 | PN ---
Progress Note, Physician History of Present Illness: Patient feeling OK. Had home situation resolved, so to go home today ( fumigation completed). Eating OK. - Current Medication List Current Medications: Active Medications Acetaminophen (Tylenol -) 650 mg PO Q4H PRN PRN Reason: FEVER OR PAIN Last Admin: 09/26/16 13:19 Dose: 650 mg Albuterol Sulfate (Ventolin Hfa Inhaler -) 1 puff IH Q4H PRN PRN Reason: ASTHMA Last Admin: 09/18/16 19:58 Dose: 1 puff Atorvastatin Calcium (Lipitor -) 10 mg PO HS [facility] Last Admin: 09/26/16 22:09 Dose: 10 mg Benzocaine/Menthol (Cepacol Lozenge -) 1 each MM PRN PRN PRN Reason: SORE THROAT Last Admin: 09/20/16 18:54 Dose: 1 each Docusate Sodium (Colace -) 100 mg PO TID [facility] Last Admin: 09/27/16 06:45 Dose: 100 mg Enoxaparin Sodium (Lovenox -) 40 mg SQ DAILY [facility] Last Admin: 09/27/16 10:13 Dose: 40 mg Folic Acid (Folic Acid -) 1 mg PO DAILY [facility] Last Admin: 09/27/16 10:13 Dose: 1 mg Metoprolol Succinate (Toprol Xl -) 25 mg PO DAILY [facility] Last Admin: 09/27/16 10:21 Dose: Not Given Montelukast Sodium (Singulair -) 10 mg PO HS [facility] Last Admin: 09/26/16 22:09 Dose: 10 mg Oxycodone HCl (Roxicodone -) 5 mg PO Q4H PRN PRN Reason: PAIN Last Admin: 09/26/16 22:30 Dose: 5 mg Potassium Chloride (K-Dur -) 20 meq PO BID [facility] Last Admin: 09/27/16 10:13 Dose: 20 meq Zolpidem Tartrate (Ambien -) 5 mg PO HS PRN Last Admin: 09/24/16 21:48 Dose: 5 mg - Objective Vital Signs: Vital Signs Temperature 98.1 F 09/27/16 06:00 Pulse Rate 72 09/27/16 06:00 Respiratory Rate 18 09/27/16 06:00 Blood Pressure 106/71 09/27/16 06:00 O2 Sat by Pulse Oximetry (%) 96 09/26/16 21:00 Constitutional: Yes: No Distress, Calm Eyes: Yes: Conjunctiva Clear, EOM Intact Neck: Yes: Supple, Trachea Midline Cardiovascular: Yes: Regular Rate and Rhythm, S1, S2. No: Murmur Respiratory: Yes: Regular, CTA Bilaterally. No: Rales, Rhonchi, Wheezes Gastrointestinal: Yes: Normal Bowel Sounds, Soft, Other (colostomy LLQ, dressing on central abdomen with drain present (small amount serosanguinous fluid)) Edema: No Labs: CBC, BMP 09/26/16 06:00 09/25/16 06:30 Assessment/Plan Current Active Problems Constipation (Acute) Diverticulitis (Acute) HLD (hyperlipidemia) (Acute) Hypertension (Acute) Perforation bowel (Acute) Perforation of sigmoid colon due to diverticulitis (Acute) Sepsis (Acute) -to d/c home today
[2016-09-27] MEDS: ACETAMINOPHEN 325 MG TABLET (FP) PO PRN (11:46)
[2016-09-27 13:31] VITALS: BP 94/65; PULSE 88; TEMP 98.4
== END 2016-09-27 13:11 | disposition home health service (06) | DRG 854 ==
LOC: JER 07:57 → JERBED 13:41 → JICU 19:48 → J8W 09-16 19:59
PROVIDERS: ADMIT Internal Medicine; ATTEND Internal Medicine
PROC: 0D1N0Z4 Bypass Sigmoid Colon to Cutaneous, Open Approach (ICD-10-PCS; 2016-09-14)
PROC: 0DTE0ZZ Resection of Large Intestine, Open Approach (ICD-10-PCS; principal; 2016-09-14 14:00)
DX: A41.9 Sepsis, unspecified organism (principal); K57.20 Diverticulitis of large intestine with perforation and abscess without bleeding; T81.32XA Disruption of internal operation (surgical) wound, not elsewhere classified, initial encounter; I10 Essential (primary) hypertension; E78.5 Hyperlipidemia, unspecified; K59.00 Constipation, unspecified; J45.909 Unspecified asthma, uncomplicated; Z68.33 Body mass index [BMI] 33.0-33.9, adult; R73.9 Hyperglycemia, unspecified; D53.9 Nutritional anemia, unspecified; B96.29 Other Escherichia coli [E. coli] as the cause of diseases classified elsewhere; B95.4 Other streptococcus as the cause of diseases classified elsewhere; E83.39 Other disorders of phosphorus metabolism; E87.6 Hypokalemia; Y83.8 Other surgical procedures as the cause of abnormal reaction of the patient, or of later complication, without mention of misadventure at the time of the procedure; R07.89 Other chest pain; R11.0 Nausea; E66.9 Obesity, unspecified
CPT/HCPCS: 36415; 71010-TC; 74177-TC; 80048; 80053; 81003; 81015; 83036; 83605; 83690; 83735; 84100; 84484; 85025; 85027; 86850; 86900; 86901; 87040; 87070; 87075; 87076; 87086; 87186; 87205; 88307-TC; 93005; 93010; 93970-TC; 94760; 97116-GP; 97161-GP; 99284-25; Q9967

== ENCOUNTER 2016-10-01 12:51 | Emergency (ER) | payer OTHER ==
[2016-10-01 13:06] VITALS: BP 114/63; PULSE 75; TEMP 97.6; BMI 38.9
--- NOTE | 2016-10-01 14:44 | PDOC ---
History of Present Illness - General History Source: Patient Exam Limitations: No Limitations - History of Present Illness Initial Comments: 10/01/16 19:00 65-year-old female with history of perforated diverticulitis, status post partial colectomy with diverticular and colostomy presents to the ER complaining of decreased output via the colostomy and the leakage of fecal material around the colostomy and into the abdominal wound. Patient denies abdominal pain/fever/chills/nausea/vomiting. Patient reports that visiting nurse service head change the colostomy the previous day at which point the colostomy output had decreased. REVIEW OF SYSTEMS CONSTITUTIONAL: No fever, no chills, no fatigue EYES: No visual changes ENT: No ear pain, no sore throat CARDIOVASCULAR: No chest pain, no palpitations RESPIRATORY: No cough, no SOB GI: + Decreased colostomy output; No abdominal pain, no nausea, no vomiting, no constipation, no diarrhea GENITOURINARY: No dysuria, no frequency, no hematuria MUSKULOSKELETAL: No backpain, no joint pain, no myalgias SKIN: No rash NEURO: No headache EXAMINATION CONSTITUTIONAL: HEAD: Normocephalic; atraumatic EYES: PERRL; EOM intact ENMT: External appears normal; normal oropharynx NECK: Supple; non-tender; no cervical lymphadenopathy CARD: Normal S1, S2; no murmurs, rubs, or gallops RESP: Normal chest excursion with respiration; breath sounds clear and equal bilaterally; no wheezes, rhonchi, or rales ABD: Soft, distended, nontender, + midline laparotomy scar with granulation tissue is noted; fecal material is noted within the wound itself; [place] drain is noted in the right lower quadrant; a colostomy with minimal fecal material is noted in the left lower quadrant; colonic mucosa is within normal limit within the colostomy without surrounding erythema; EXT: Normal ROM in all four extremities; non-tender to palpation; distal pulses intact patient is wheelchair-bound, SKIN: Warm, dry, no rash NEURO: No focal neurological deficiencies. <Tesfaye Zhao - Last Filed: 10/01/16 19:00> - General History Source: Patient Exam Limitations: No Limitations - History of Present Illness Travel History: No Initial Comments: 10/03/16 15:30 pt presents to Er fast track with c/o leaking around the colostomy that was placed last week. pt c/o abd pain. <Christen Multani - Last Filed: 10/03/16 15:31> - General Chief Complaint: Diarrhea Stated Complaint: RE VIST Time Seen by Provider: 10/01/16 14:28 Past History <Tesfaye Zhao - Last Filed: 10/01/16 19:00> - Past Medical History Cardiac Disorders: Yes Diabetes: Yes HTN: Yes Hypercholesterolemia: Yes - Surgical History Abdominal Surgery: (colostomy) - Psycho/Social/Smoking Cessation Hx Anxiety: No Suicidal Ideation: No Smoking History: Never smoked Have you smoked in the past 12 months: No Information on smoking cessation initiated: No Hx Alcohol Use: No Drug/Substance Use Hx: No Substance Use Type: None <Christen Multani - Last Filed: 10/03/16 15:31> - Past Medical History Allergies/Adverse Reactions: Allergies Allergy/AdvReac Type Severity Reaction Status Date / Time No Known Allergies Allergy Verified 10/01/16 13:02 Home Medications: Ambulatory Orders Acetaminophen [Tylenol] 650 mg PO PRN PRN 09/14/16 Albuterol Sulfate Inhaler - [Ventolin HFA Inhaler -] 1 - 2 inh PO Q4H PRN Aspirin [ASA -] 81 mg PO DAILY 09/14/16 Cholecalciferol (Vitamin D3) [Vitamin D3] 1,000 unit PO BID 09/14/16 Folic Acid 1 mg PO DAILY 09/14/16 Meclizine HCl 25 mg PO DAILY 09/14/16 Montelukast Sodium [Singulair] 10 mg PO DAILY 09/14/16 Pravastatin Sodium [Pravachol -] 20 mg PO HS 09/14/16 Metoprolol Succinate [Toprol XL -] 25 mg PO DAILY #30 tab.sr 09/26/16 Oxycodone HCl [Roxicodone -] 5 mg PO Q4H PRN #10 tablet MDD 30mg 09/26/16 Colostomy Bags [Closed-End Pouch] 1 each MC BID #20 each 10/01/16 *Physical Exam - Vital Signs Last Vital Signs Temp Pulse Resp BP Pulse Ox 97.6 F 75 18 114/63 96 10/01/16 13:02 10/01/16 13:02 10/01/16 13:02 10/01/16 13:02 10/01/16 13:02 <Tesfaye Zhao - Last Filed: 10/01/16 19:00> - Vital Signs Last Vital Signs Temp Pulse Resp BP Pulse Ox 97.6 F 75 18 114/63 96 10/01/16 13:02 10/01/16 13:02 10/01/16 13:02 10/01/16 13:02 10/01/16 13:02 <Christen Multani - Last Filed: 10/03/16 15:31> Medical Decision Making - Medical Decision Making 10/01/16 19:04 Colostomy bag exchange; wound irrigated with normal saline and Xeroform dressing as well as abdominal pads reapplied; patient tolerated procedure well. Will discharge. <Tesfaye Zhao - Last Filed: 10/01/16 19:00> - Medical Decision Making 10/03/16 15:30 pt moved to the MAIN ER for further management. full exam not performed in fast track, by myself. <Christen Multani - Last Filed: 10/03/16 15:31> *DC/Admit/Observation/Transfer <Tesfaye Zhao - Last Filed: 10/01/16 19:00> <Christen Multani - Last Filed: 10/03/16 15:31> Diagnosis at time of Disposition: Colostomy complication, unspecified - Discharge Dispostion Disposition: HOME Condition at time of disposition: Stable - Prescriptions Prescriptions: Colostomy Bags [Closed-End Pouch] 1 each BID #20 each - Referrals Referrals: Josie Cosme MD [Primary Care Provider] - - Patient Instructions Printed Discharge Instructions: How to Care for Your Colostomy or Ileostomy - Post Discharge Activity
== END 2016-10-01 17:24 | disposition home or self-care (01) ==
LOC: JER 12:51 → JERFT 12:51 → JER 17:24
DX: E11.9 Type 2 diabetes mellitus without complications (principal); Z43.3 Encounter for attention to colostomy; I10 Essential (primary) hypertension; E78.00 Pure hypercholesterolemia, unspecified
CPT/HCPCS: 99281-25

== ENCOUNTER 2017-03-17 08:00 | Inpatient (IN) | payer OTHER ==
--- NOTE | 2017-02-24 10:44 | HP ---
DATE OF ADMISSION: 03/18/2017 HISTORY: This is a 66-year-old woman who had presented to [facility] with abdominal pain. Noted to have a perforated viscus, thought to be diverticular in nature. Underwent exploration on September 14, 2016, where a perforated sigmoid colon was noted and associated with pelvic abscess. She underwent a segmental sigmoid colectomy with creation of left colonic stoma and mucous fistula. She also underwent drainage of abscess and lavage. Patient went on to improve without difficulty, was ultimately discharged home. Patient is now approximately 3-1/2 months since her procedure, and she presents now for takedown of stoma and reconstitution of left colonic integrity. Prior to this admission, the patient will have completed a complete colonoscopy under the care of the GI service. She will also have undergone CAT scan evaluation preoperatively as well. PAST MEDICAL HISTORY: Significant for asthma, hypertension, and eye disease. No known history of heart disease, diabetes, respiratory, renal, or hepatic insufficiency. PAST SURGICAL HISTORY: Significant for sections in 1979 and 1981. ALLERGIES: None known. REGULAR MEDICATIONS: None. SOCIAL HISTORY: Negative tobacco. Patient did smoke up until 2003. Negative alcohol. FAMILY HISTORY: Nil. REVIEW OF SYSTEMS: Nil. PHYSICAL EXAMINATION: Abdomen: Obese globus. Soft and nontender. Healthy stoma in left mid-abdomen. Mucous fistula in suprapubic region. IMPRESSION: Left colonic diverticular disease with left colostomy and mucous fistula status. PLAN: Admit to the hospital 1 day preoperative, perform abdominal prep and colonic cleansing. Patient to undergo laparotomy/takedown colostomy stoma as well as mucous fistula stoma, left colon resection with low anterior anastomosis. Patient is aware that it is possible that she may require a temporary diverting ileostomy at the time of surgery if there is any question about the integrity of her anastomosis. Indications, alternatives, possible complications of the procedure have been reviewed at length with the patient. Consent obtained. Patient to be seen preoperatively by Dr. Cosme. Please refer to her notes for those medical details. Patient to be seen by the GI service to undergo complete colonoscopy. She has never had a colonoscopic evaluation in her life. Miriam [id number] cc: Dr. Cosme
[2017-03-17 09:55] VITALS: BMI 29.2
[2017-03-17] MEDS ORDERED: ERTAPENEM SODIUM 1 GM in SODIUM CHLORIDE 100 ML IVPB ONE (10:30)
[2017-03-17] MEDS ORDERED: PEG 3350/NA SULF BICARB CL/KCL 4000 ML SOLN.RECON PO ONE (10:45)
[2017-03-17] MEDS ORDERED: traMADol HCL 50 MG TABLET PO PRN (11:32)
[2017-03-17] MEDS ORDERED: ACETAMINOPHEN 325 MG TABLET (FP) ONE (11:49)
[2017-03-17] MEDS ORDERED: ACETAMINOPHEN 325 MG TABLET (FP) PO PRN (12:53)
[2017-03-17] MEDS: LACTATED RINGERS SOLUTION 1,000 ML IV SCH (13:02)
[2017-03-17] MEDS ORDERED: MONTELUKAST NA 10 MG TABLET PO SCH (22:00)
[2017-03-18] MEDS: LACTATED RINGERS SOLUTION 1,000 ML IV SCH ×5 (01:20→19:43)
[2017-03-18] MEDS ORDERED: INSULIN (NOVOLOG) ASPART 100 UNITS/ML 10ML VIAL ONE (07:03)
[2017-03-18] MEDS ORDERED: DEXAMETHASONE SOD PHOSPHATE 4 MG/1 ML VIAL ONE (07:14)
[2017-03-18] MEDS ORDERED: ROCURONIUM BROMIDE 50 MG/5 ML VIAL ONE ×2 (07:14→08:57)
[2017-03-18] MEDS ORDERED: LIDOCAINE HCL 2% 100 MG/5 ML DISP.SYRIN ONE (07:14)
[2017-03-18] MEDS ORDERED: PROPOFOL 20 ML ONE (07:14)
[2017-03-18] MEDS ORDERED: SUCCINYLCHOLINE CHLORIDE 200 MG/10 ML VIAL ONE (07:14)
[2017-03-18] MEDS ORDERED: ONDANSETRON 4 MG/2 ML VIAL ONE (07:14)
[2017-03-18] MEDS ORDERED: MIDAZOLAM HCL 2 MG/2 ML SINGLE DOSE VIAL ONE (07:15)
[2017-03-18] MEDS ORDERED: fentaNYL CITRATE 250 MCG/5 ML VIAL ONE (07:15)
[2017-03-18] MEDS ORDERED: ERTAPENEM SODIUM 1 GM VIAL IVPB ONE (08:30)
[2017-03-18] MEDS ORDERED: METOPROLOL TARTRATE 5 MG/5 ML VIAL IVPUSH ONE (08:30)
[2017-03-18] MEDS ORDERED: ERTAPENEM SODIUM 1 GM VIAL ONE (08:31)
[2017-03-18] MEDS ORDERED: METOPROLOL TARTRATE 5 MG/5 ML VIAL ONE (08:34)
[2017-03-18] MEDS ORDERED: METOPROLOL SUCCINATE 25 MG TAB.SR.24H (FP) PO SCH (10:00)
[2017-03-18] MEDS: ENOXAPARIN NA (PORCINE) 40 MG/0.4 ML DISP.SYRIN SQ SCH (10:03)
[2017-03-18] MEDS: PANTOPRAZOLE SODIUM 40 MG VIAL IVPUSH SCH (10:03)
[2017-03-18] MEDS ORDERED: traMADol HCL 50 MG TABLET PO PRN (10:23)
[2017-03-18] MEDS ORDERED: HYDROmorphone HCL CARPU-JECT 2 MG/1 ML DISP.SYRIN ONE (11:16)
[2017-03-18] MEDS: HYDROmorphone HCL CARPU-JECT 1 MG/1 ML DISP.SYRIN IVPUSH PRN ×2 (11:20→11:45)
[2017-03-18] MEDS ORDERED: ONDANSETRON 4 MG/2 ML VIAL IVPUSH PRN (11:23)
[2017-03-18] MEDS: morphine CARPU-JECT 8 MG/1 ML DISP.SYRIN IVPB PRN ×2 (12:56→16:26)
--- NOTE | 2017-03-18 19:31 | OP ---
DATE OF OPERATION: 03/18/2017 PREOPERATIVE DIAGNOSES: Diverticular disease, colostomy status, history of perforated left colon, diverticulitis. POSTOPERATIVE DIAGNOSES: Diverticular disease, colostomy status, history of perforated left colon, diverticulitis. PROCEDURE: Exploratory laparotomy, lysis of adhesions, takedown colostomy stoma , takedown mucous fistula stoma, left colon resection and anastomosis, partial omental patch to anastomosis, partial omentectomy, peritoneal lavage, anal dilatation, sigmoidoscopy. OPERATING SURGEON: Cody Lopez MD HARVEST MANAGER: Bobby Lynch MD ANESTHESIA: Vannessa Winn CRNA (general) HISTORY: A 66-year-old woman who had presented in 2017 with a perforated viscus , and at the time of surgery, found to have perforated sigmoid colon secondary to diverticular disease. She underwent resection with colostomy, mucous fistula creation at that time. Patient presents now for additional surgery and reconstitution of bowel integrity. Indications, alternatives, possible complications reviewed. Consent obtained. DESCRIPTION OF PROCEDURE: With the patient in the supine position, with the lower extremities in stirrups, the abdomen and perineum were prepped and draped in sterile fashion using Betadine. An incision was made in the pre-existing midline scar and deepened into the subcutaneous space. There were multiple small hernias noted about the previous midline closure. Ultimately, the abdominal cavity was entered. Lysis of adhesions ensued, freeing the omentum from its attachment to the abdominal wall. First paying attention to the mucous fistula, this was taken down using sharp dissection and ultimately freeing it from its attachment to the abdominal wall. An elliptical incision was then made about the colostomy stoma at the level of the left mid-abdomen and deepened into the subcutaneous space. The fascial ring was identified and incised. Ultimately, the left colostomy stoma was taken down and the left colon retracted back into the abdominal cavity. Using a YULIANA stapler, portion of the descending colon with the colostomy stoma was resected. Using another YULIANA stapler, portion of the distal sigmoid colon with the mucous fistula was resected as well. Bowel integrity was restored, creating a functional end-to-end anastomosis using YULIANA stapler technique. The anastomosis was tested for integrity and patency from above. To further check the integrity of the anastomosis, anal dilatation ensued. A rigid sigmoidoscope was placed in the rectum. Via the rectum, the distal colon was insufflated with air while the anastomosis was kept under saline. Distention of the anastomosis failed to demonstrate any extravasation of air, further substantiating the integrity of the anastomosis. The anastomosis had both proximal and distal viable bowel noted. There was no undue tension. There was no significant difference in bowel caliber. An omental patch was then mobilized and placed over the anastomosis and tacked in place. There was some redundant omentum which had been stuck in the pelvis. This was freed up and ultimately excised and sent as a specimen labeled portion of omentum. Peritoneal lavage ensued and adequate hemostasis ensured. The defect at the level of the left abdominal wall where the colostomy stoma had been located was closed in a 2-layer fashion using interrupted No. 1 PDS sutures. Ultimately, the midline was reapproximated using No. 1 PDS suture material, beginning at each end of the wound with the suture tied at the wound mid-point. Along the course of closure, several No. 1 Vicryl sutures were also placed in an interrupted fashion. Subcutaneous space was then irrigated, and the skin edges were approximated, placing widely interspersed skin clips. Through the defects in the skin, Iodoform gauze was placed into the subcutaneous space, essentially leaving the wound open. The old stoma site was closed similarly. Dressings were applied. Needle and instrument count correct. ESTIMATED BLOOD LOSS: Less than 100 mL. SPECIMEN: Included portion of descending colon with colostomy stoma as well as portion of sigmoid colon with mucous fistula, a portion of omentum as well. DRAINS: None. IMPLANTS: None. NOTE: Abdominal wall of poor muscle integrity and likely result in subsequent hernia formation which will need to be addressed at a later time. Patient transferred to Recovery. Miriam [id number] MTDSin
[2017-03-18] MEDS: morphine CARPU-JECT 8 MG/1 ML DISP.SYRIN IVPUSH PRN (20:09)
[2017-03-18] MEDS: MONTELUKAST NA 10 MG TABLET PO SCH (21:08)
[2017-03-19] MEDS: morphine CARPU-JECT 8 MG/1 ML DISP.SYRIN IVPUSH PRN ×2 (01:48→06:53)
[2017-03-19] MEDS: LACTATED RINGERS SOLUTION 1,000 ML IV SCH ×4 (06:55→22:52)
[2017-03-19] MEDS ORDERED: ERTAPENEM SODIUM 1 GM in SODIUM CHLORIDE 100 ML IVPB ONE (08:00)
[2017-03-19] MEDS ORDERED: PT OWN MED DRAWER 7, Y5N ONE (08:22)
[2017-03-19 08:59] LABS: HEMOGLOBIN 12.4 GM/dL (10.7-15.3); MCH 29.6 pg (25.7-33.7); MCHC 32.5 g/dl (32.0-36.0); MEAN CELL VOLUME 91.1 fl (80-96); MEAN PLT VOLUME 9.6 fl (7.5-11.1); PLATELET COUNT 281 K/MM3 (134-434); RBC 4.17 M/mm3 (3.60-5.2); RDW 14.1 % (11.6-15.6); WHITE BLOOD COUNT 15.9 K/mm3 (4.0-10.0)
[2017-03-19 09:28] LABS: ANION GAP 10 (8-16); BLOOD UREA NITROGEN 9 mg/dL (7-18); CALCIUM 8.7 mg/dL (8.5-10.1); CHLORIDE 102 mmol/L (98-107); CO2 29 mmol/L (21-32); GLUCOSE,RANDOM 91 mg/dL (74-106); MAGNESIUM 1.9 mg/dL (1.8-2.4); POTASSIUM 4.2 mmol/L (3.5-5.1); SODIUM 141 mmol/L (136-145)
[2017-03-19 09:30] LABS: CREATININE 0.6 mg/dL (0.55-1.02); PHOSPHOROUS 4.6 mg/dL (2.5-4.9)
[2017-03-19] MEDS: PANTOPRAZOLE SODIUM 40 MG VIAL IVPUSH SCH (09:55)
--- NOTE | 2017-03-19 11:01 | PN ---
Progress Note (short form) - Note Progress Note: surgery pt seen and examined. complains of abd discomfort. refusing to ambulate earlier. voiding afebrile abd- soft, minimal distension, dressing with minimal soilage Laboratory Tests 03/19/17 07:30 WBC 15.9 H D A/P 1) Pod#1- cont npo, ivf 2) morphine, oxycodone, ultram 3) prophylaxis- lovenox, protonix, oob, spirometer 4) htn- controlled on home meds 5) copd- controlled on home meds 6) arthritis- controlled 7) status colostomy, history complicated diverticulitis- resolved, follow path 8) leukocytosis- reactive, should drop tomorrow
[2017-03-19] MEDS ORDERED: HYDROmorphone HCL CARPU-JECT 2 MG/1 ML DISP.SYRIN IVPB PRN (11:07)
[2017-03-19] MEDS: oxyCODONE HCL 5 MG TABLET PO PRN ×2 (11:12→20:39)
[2017-03-19] MEDS ORDERED: HYDROmorphone HCL CARPU-JECT 1 MG/1 ML DISP.SYRIN IVPB PRN (11:13)
[2017-03-19] MEDS: METOPROLOL SUCCINATE 25 MG TAB.SR.24H (FP) PO SCH (11:26)
[2017-03-19] MEDS: ENOXAPARIN NA (PORCINE) 40 MG/0.4 ML DISP.SYRIN SQ SCH (12:05)
--- NOTE | 2017-03-19 13:57 | PN ---
Progress Note (short form) - Note Progress Note: POD #1 - s/p exploratory laparotomy/colostomy take down under GA. VSS. Pt. c/o some abdominal pain. Pain management as per surgery. No apparent anesthetic complications noted. Continue current care.
[2017-03-19] MEDS: ACETAMINOPHEN 325 MG TABLET (FP) PO PRN (20:39)
[2017-03-19] MEDS: MONTELUKAST NA 10 MG TABLET PO SCH (22:58)
[2017-03-20] MEDS: oxyCODONE HCL 5 MG TABLET PO PRN ×3 (08:34→22:29)
[2017-03-20 08:46] LABS: BASO % 0.6 % (0-2.0); EOS % 0.1 % (0-4.5); HEMATOCRIT 38.3 % (32.4-45.2); HEMOGLOBIN 12.6 GM/dL (10.7-15.3); LYMPH % 8.2 % (8-40); MCH 29.6 pg (25.7-33.7); MCHC 32.8 g/dl (32.0-36.0); MEAN CELL VOLUME 90.2 fl (80-96); MEAN PLT VOLUME 9.3 fl (7.5-11.1); MONO % 8.7 % (3.8-10.2); NEUT % 82.4 % (42.8-82.8); PLATELET COUNT 259 K/MM3 (134-434); RBC 4.25 M/mm3 (3.60-5.2); WHITE BLOOD COUNT 13.4 K/mm3 (4.0-10.0)
[2017-03-20 09:45] LABS: ANION GAP 8 (8-16); BLOOD UREA NITROGEN 7 mg/dL (7-18); CHLORIDE 99 mmol/L (98-107); CO2 30 mmol/L (21-32); CREATININE 0.6 mg/dL (0.55-1.02); GLUCOSE,RANDOM 83 mg/dL (74-106); MAGNESIUM 1.8 mg/dL (1.8-2.4); PHOSPHOROUS 2.9 mg/dL (2.5-4.9); POTASSIUM 3.8 mmol/L (3.5-5.1); SODIUM 137 mmol/L (136-145)
[2017-03-20] MEDS: LACTATED RINGERS SOLUTION 1,000 ML IV SCH ×2 (10:48→11:19)
[2017-03-20] MEDS: PANTOPRAZOLE SODIUM 40 MG VIAL IVPUSH SCH (10:49)
[2017-03-20] MEDS: METOPROLOL SUCCINATE 25 MG TAB.SR.24H (FP) PO SCH (10:49)
[2017-03-20] MEDS: ENOXAPARIN NA (PORCINE) 40 MG/0.4 ML DISP.SYRIN SQ SCH (10:49)
--- NOTE | 2017-03-20 13:45 | PN ---
Progress Note (short form) - Note Progress Note: surgery pt seen and examined. refuses to walk. refuses to shower. wont get out of bed. wants food. afebrile abd- soft, no distension, dressing changed and repacked--clean, Laboratory Tests 03/20/17 08:00 WBC 13.4 H A/P 1) Pod#2- cont npo, ivf 2) morphine, oxycodone, ultram 3) prophylaxis- lovenox, protonix, oob, spirometer 4) htn- controlled on home meds 5) copd- controlled on home meds 6) arthritis- controlled 7) status colostomy, history complicated diverticulitis- resolved, follow path 8) leukocytosis- reactive, should cont to improve 9) non-compliance- pt is at risk of dvt, pe, pna, ileus, wound infection, from refusing to participate in her care. 10) open wound- should shower daily and then irrigate deeply with saline and lightly pack. pt refuses to shower
[2017-03-20] MEDS: MONTELUKAST NA 10 MG TABLET PO SCH (22:25)
[2017-03-20] MEDS: ACETAMINOPHEN 325 MG TABLET (FP) PO PRN (22:29)
[2017-03-21] MEDS: LACTATED RINGERS SOLUTION 1,000 ML IV SCH ×3 (02:00→12:01)
--- NOTE | 2017-03-21 07:17 | PN ---
Progress Note (short form) - Note Progress Note: surgery pt seen and examined. refuses to walk. refuses to shower. wont get out of bed. wants food. complains of pain. no flatus afebrile abd- soft, no distension, no guarding, refuses dressing change labs pending A/P 1) Pod#3- cont npo, ivf 2) morphine, oxycodone, ultram will add motrin (new [place] pain scale rules complicating effective pain management as every drug needs an associated pain scale number and this complicates nursing discretion) 3) prophylaxis- lovenox, protonix, oob, spirometer 4) htn- controlled on home meds 5) copd- controlled on home meds 6) arthritis- controlled 7) status colostomy, history complicated diverticulitis- resolved, follow path 8) leukocytosis- reactive, should cont to improve-- labs pending 9) non-compliance- pt is at risk of dvt, pe, pna, ileus, wound infection, from refusing to participate in her care. 10) open wound- should shower daily and then irrigate deeply with saline and lightly pack. pt refuses to shower and refused wound eval this am
[2017-03-21] MEDS ORDERED: IBUPROFEN 800 MG/8 ML IJ IVPB PRN (07:30)
[2017-03-21] MEDS: ACETAMINOPHEN 325 MG TABLET (FP) PO PRN (07:44)
[2017-03-21] MEDS: oxyCODONE HCL 5 MG TABLET PO PRN ×3 (07:45→20:16)
[2017-03-21 08:38] LABS: BASO % 0.5 % (0-2.0); EOS % 0.5 % (0-4.5); HEMATOCRIT 38.5 % (32.4-45.2); HEMOGLOBIN 12.7 GM/dL (10.7-15.3); LYMPH % 11.8 % (8-40); MCH 29.7 pg (25.7-33.7); MCHC 32.9 g/dl (32.0-36.0); MEAN CELL VOLUME 90.4 fl (80-96); MEAN PLT VOLUME 9.4 fl (7.5-11.1); MONO % 9.2 % (3.8-10.2); PLATELET COUNT 275 K/MM3 (134-434); RBC 4.26 M/mm3 (3.60-5.2); RDW 14.1 % (11.6-15.6); WHITE BLOOD COUNT 10.5 K/mm3 (4.0-10.0)
[2017-03-21 09:04] LABS: ANION GAP 11 (8-16); BLOOD UREA NITROGEN 8 mg/dL (7-18); CALCIUM 8.7 mg/dL (8.5-10.1); CHLORIDE 100 mmol/L (98-107); CO2 26 mmol/L (21-32); CREATININE 0.5 mg/dL (0.55-1.02); GLUCOSE,RANDOM 83 mg/dL (74-106); MAGNESIUM 1.8 mg/dL (1.8-2.4); PHOSPHOROUS 3.1 mg/dL (2.5-4.9); POTASSIUM 3.9 mmol/L (3.5-5.1); SODIUM 137 mmol/L (136-145)
[2017-03-21] MEDS: ENOXAPARIN NA (PORCINE) 40 MG/0.4 ML DISP.SYRIN SQ SCH (10:02)
[2017-03-21] MEDS: PANTOPRAZOLE SODIUM 40 MG VIAL IVPUSH SCH (10:02)
[2017-03-21] MEDS: METOPROLOL SUCCINATE 25 MG TAB.SR.24H (FP) PO SCH (10:03)
[2017-03-21] MEDS: MONTELUKAST NA 10 MG TABLET PO SCH (21:17)
[2017-03-22] MEDS: LACTATED RINGERS SOLUTION 1,000 ML IV SCH ×2 (03:00→14:23)
[2017-03-22] MEDS: PANTOPRAZOLE SODIUM 40 MG VIAL IVPUSH SCH (09:52)
[2017-03-22] MEDS: METOPROLOL SUCCINATE 25 MG TAB.SR.24H (FP) PO SCH (09:52)
[2017-03-22] MEDS: ENOXAPARIN NA (PORCINE) 40 MG/0.4 ML DISP.SYRIN SQ SCH (09:52)
[2017-03-22] MEDS: oxyCODONE HCL 5 MG TABLET PO PRN ×2 (11:55→19:29)
--- NOTE | 2017-03-22 15:37 | PN ---
Progress Note (short form) - Note Progress Note: surgery pt seen and examined. walking today, allowing wound care, flatus afebrile abd- soft, no distension, no guarding, incision clean Laboratory Tests 03/21/17 07:30 WBC 10.5 H A/P 1) Pod#4- full liquids, stop ivf 2) morphine, oxycodone, ultram, motrin (new [place] pain scale rules complicating effective pain management as every drug needs an associated pain scale number and this complicates nursing discretion) 3) prophylaxis- lovenox, protonix, oob, spirometer 4) htn- controlled on home meds 5) copd- controlled on home meds 6) arthritis- controlled 7) status colostomy, history complicated diverticulitis- resolved, follow path 8) leukocytosis- resolved 9) non-compliance- pt is at risk of dvt, pe, pna, ileus, wound infection, from refusing to participate in her care. better compliance today 10) open wound- should shower daily and then irrigate deeply with saline and lightly pack.
[2017-03-22] MEDS: MONTELUKAST NA 10 MG TABLET PO SCH (21:49)
[2017-03-23] MEDS: LACTATED RINGERS SOLUTION 1,000 ML IV SCH ×3 (04:59→11:30)
[2017-03-23 08:22] LABS: BASO % 0.4 % (0-2.0); EOS % 1.4 % (0-4.5); HEMATOCRIT 36.9 % (32.4-45.2); HEMOGLOBIN 12.1 GM/dL (10.7-15.3); MCH 29.7 pg (25.7-33.7); MCHC 32.9 g/dl (32.0-36.0); MEAN CELL VOLUME 90.4 fl (80-96); MONO % 9.2 % (3.8-10.2); PLATELET COUNT 310 K/MM3 (134-434); RBC 4.08 M/mm3 (3.60-5.2); RDW 13.8 % (11.6-15.6); WHITE BLOOD COUNT 8.7 K/mm3 (4.0-10.0)
[2017-03-23] MEDS ORDERED: PT OWN MED DRAWER 7, Y5N ONE (10:35)
[2017-03-23] MEDS: PANTOPRAZOLE SODIUM 40 MG VIAL IVPUSH SCH (10:43)
[2017-03-23] MEDS: ENOXAPARIN NA (PORCINE) 40 MG/0.4 ML DISP.SYRIN SQ SCH (10:43)
[2017-03-23] MEDS: METOPROLOL SUCCINATE 25 MG TAB.SR.24H (FP) PO SCH (10:44)
[2017-03-23 15:31] VITALS: BP 141/85; PULSE 70; TEMP 98.5
[2017-03-23] MEDS: ACETAMINOPHEN 325 MG TABLET (FP) PO PRN (17:55)
--- NOTE | 2017-03-24 07:31 | DS ---
DATE OF ADMISSION: 03/17/2017 DATE OF DISCHARGE: 03/23/2017 ADMITTING DIAGNOSIS: Status post colostomy with history of complicated diverticulitis. In addition, hypertension, chronic obstructive pulmonary disease, and eye disease. DISCHARGE DIAGNOSIS: Status post colostomy with history of complicated diverticulitis. In addition, hypertension, chronic obstructive pulmonary disease, and eye disease, plus open wound. BRIEF HISTORY: This is a 66-year-old female who had a previous history of a colostomy and colectomy for sigmoid perforated diverticulitis. She was admitted to the hospital for reversal of her colostomy. She underwent uneventful surgery. Please reference Dr. Singh operative report. Postoperatively, she did well. She was noncompliant with ambulation and wound care. However, eventually, she recovered where she was tolerating liquid diet, having bowel movements and passing gas. She will go home on her usual home medications with a new prescription for pain medication. She will have visiting nurse services evaluate her for wound care, which will consist of daily irrigation with saline and light packing with gauze of her previous colostomy site open wound. She will follow with Dr. Lopez in 1-2 weeks time to be evaluated for staple removal. She is okay to shower, okay to walk. She will not lift anything more than 20 pounds. She will go home on a liquid diet until Thursday, and then, she will resume a regular diet. DO SEDA ALBERTO/[id number]
--- NOTE | 2017-03-24 14:40 | PATH ---
Surgical Pathology Report Patient Name: LUCIEN HUNTLEY [facility]. Rec. #: [id number] /Age/Gender: 1950 (Age: 66) / F Account: [id number] Location: [address] [place] [address]/[facility] Taken: 03/18/2017 Received: 03/18/2017 Reported: 03/24/2017 Physicians: Cody Lopez M.D. 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 SIGMOID COLON STOMA, EXCISION: PORTION OF COLON WITH ATTACHED SKIN CONSISTENT WITH COLOSTOMY SITE. B. LEFT COLON STOMA, EXCISION: PORTION OF COLON WITH ATTACHED SKIN CONSISTENT WITH COLOSTOMY SITE. C. OMENTUM, PARTIAL EXCISION: BENIGN ADIPOSE TISSUE AND FIBROMEMBRANOUS TISSUE WITH CHRONIC INFLAMMATION AND FOCAL FOREIGN BODY REACTION. Electronically Signed Raj Graff M.D. Gross Description A. Received in formalin labeled "portion of sigmoid stoma with mucosal fistula," is a 3.0 x 2.1 cm mejia, elliptical portion of skin with a central stoma. There is a 2.8 cm in length portion of bowel attached to the stoma. The bowel mucosal margin is open. The bowel mucosa is mejia and unremarkable. Microbiology Technologist sections are submitted in 3 cassettes as follows: 1-bowel mucosal margin; 0-0-ojlkhpacfbbmic stoma B. Received in formalin labeled "portion of left colon with colostomy stoma," is a 3.5 x 2.1 cm mejia, elliptical portion of skin with a central stoma. There is a 3.5 cm in length portion of bowel attached to the stoma. The bowel mucosal margin is stapled. The bowel mucosa is mejia and unremarkable. Microbiology Technologist sections are submitted in 2 cassettes as follows: 1-bowel mucosal margin; 2-self pay representative stoma. C. Received in formalin labeled "omentum," is a 9.3 x 6.5 x 1.5 cm portion of yellow, lobulated adipose tissue with focal attached fibrous tissue. Sectioning reveals yellow, lobulated adipose tissue. Microbiology Technologist sections are submitted in one cassette. /03/19/2017 saudi03/19/2017
== END 2017-03-23 18:43 | disposition home health service (06) | DRG 330 ==
LOC: JSAMEDAYSX 09:00 → J6S 14:30 → EDSTATUS 03-18 08:00
PROVIDERS: ADMIT Surgery; ATTEND Surgery
PROC: 0DQN0ZZ Repair Sigmoid Colon, Open Approach (ICD-10-PCS; principal; 2017-03-18 08:00)
DX: Z43.3 Encounter for attention to colostomy (principal); K57.92 Diverticulitis of intestine, part unspecified, without perforation or abscess without bleeding; L76.82 Other postprocedural complications of skin and subcutaneous tissue; T81.89XA Other complications of procedures, not elsewhere classified, initial encounter; S31.109A Unspecified open wound of abdominal wall, unspecified quadrant without penetration into peritoneal cavity, initial encounter; I10 Essential (primary) hypertension; J44.9 Chronic obstructive pulmonary disease, unspecified; M19.90 Unspecified osteoarthritis, unspecified site; D72.829 Elevated white blood cell count, unspecified; Y83.9 Surgical procedure, unspecified as the cause of abnormal reaction of the patient, or of later complication, without mention of misadventure at the time of the procedure
CPT/HCPCS: 36415; 71046-TC; 80048; 83735; 84100; 85025; 85027; 86850; 86900; 86901; 94010; 94760